=== PATIENT | female | born 1945 | race African-American/Black ===

== ENCOUNTER 2016-06-19 05:36 | Day surgery (SDC) | payer MEDICARE, MEDICAID ==
[2016-06-19] VITALS (13 sets, daily range): BP systolic 143–173; BP diastolic 76–95
[~2016-06-19] VITALS: Ht 165.1 cm; Wt 81.6 kg
[~2016-06-19 05:36] MED LIST: BUPROPION XL300 M1 PO; CAPTOPRIL50 MG PO; CIPROFLOXA500 MG/5 M PO; INDOCIN25 MG ORAL; INDOCIN75 MG ORAL; INDOMETHACIN25 MG PO; NORCO 5-325 TA1 EAC1 ORAL; SEROQUEL XR150 MG ORAL; TOVIAZ4 MG PO; TRAMADOL HCL50 MG ORAL
[2016-06-19] MEDS ORDERED: ceFAZolin sod 1 GM in NS 55 ML IVPB ONE (07:00)
[2016-06-19] MEDS ORDERED: LR 1000ml 1,000 ML IV SCH (07:00)
[2016-06-19] MEDS ORDERED: Iothalamate Meglumine 60% 30ML INJ ONE (07:04)
[2016-06-19] MEDS ORDERED: Muri-Lube ONE (07:07)
[2016-06-19] MEDS ORDERED: Lidocaine 1% MPF 10mg/ml 5ml ONE (07:30)
[2016-06-19] MEDS ORDERED: LR 1000ml ONE (07:30)
[2016-06-19] MEDS ORDERED: Propofol 10mg/ml 20ml IV ONE (07:30)
[2016-06-19] MEDS ORDERED: fentaNYL 250mcg/5ml ONE (07:30)
--- NOTE | 2016-06-19 07:34 | Pre-Procedure Note/Attestation ---
Pre-Procedure Note/Attestation Complete Prior to Procedure Planned Procedure: right Procedure Narrative: Right renal extracorporeal shockwave lithotripsy Indications for Procedure Pre-Operative Diagnosis: Right kidney stone Attestation I attest that I discussed the nature of the procedure; its benefits; risks and complications; and alternatives (and the risks and benefits of such alternatives ), prior to the procedure, with the patient (or the patient's legal patient service representative). I attest that, if there was a reasonable possibility of needing a blood transfusion, the patient (or the patient's legal patient service representative) was given the [facility] standardized written summary, pursuant to the [place] Blood Safety Act ([place] Health and Safety Code # 1645, as amended). I attest that I re-evaluated the patient just prior to the surgery and that there has been no change in the patient's H&P, except as documented below: Adarsh Treviño M.D. June 19, 2016 07:34
[2016-06-19] MEDS ORDERED: LR 1000ml 1,000 ML IVLG SCH (07:37)
--- NOTE | 2016-06-19 07:37 | Anethesia Preoperative Eval ---
Anesthesia Pre-op PMH/ROS General Date of Evaluation: June 19, 2016 Anesthesiologist: Tripp ASA Score: ASA 3 Mallampati Score Class I : Soft palate, uvula, fauces, pillars visible Class II: Soft palate, uvula, fauces visible Class III: Soft palate, base of uvula visible Class IV: Only hard plate visible Mallampati Classification: Class II Surgeon: Hudson Diagnosis: Right ureteral stone Surgical Procedure: Right ESWL Anesthesia History: none Family History: no anesthesia problems Allergies: Coded Allergies: No Known Allergies (Unverified , 06/26/15) Medications: see eMAR Past Medical History Cardiovascular: Reports: HTN, Denies: CAD, VA, arrhythmia, other, valve dz Pulmonary: Denies: COPD, OSBALDO, asthma, other Gastrointestinal/Genitourinary: Reports: GERD, Denies: CRI, ESRD, other Neurologic/Psychiatric: Reports: depression/anxiety, Denies: CVA, TIA, dementia, other Endocrine: Denies: DM, hypothyroidism, other, steroids HEENT: Reports: cataract (L), cataract (R), Denies: [place] (L), [place] (R), glaucoma, other Hematology/Immune: Reports: other - Right breast Cancer, Denies: DVT, anemia, bleeding disorder Musculoskeletal/Integumentary: Reports: OA, other - LBP, Denies: DDD, DJD, RA, edema PSxH Narrative: lap appy, right partial mastectomy Anesthesia Pre-op Phys. Exam Physician Exam Last Vital Signs Date Time Temp Pulse Resp B/P Pulse Ox O2 Delivery O2 Flow Rate FiO2 06/19/16 06:11 98.6 88 18 143/82 99 Room Air Constitutional: NAD Cardiovascular: RRR Respiratory: CTA Airway Exam Mallampati Score: Class II MO: full ROM: full Teeth: intact Anesthesia Pre-op A/P Labs see chart Studies Pre-op Studies: EKG - sr Risk Assessment & Plan Assessment: ASA III Plan: GA Status Change Before Surgery: No Pre-Antibiotics Drug: Ancef 1g Given Within 1 Hr of Incision: Yes Time Given: 07:55 CHARLOTTE GARDNER M.D. June 19, 2016 07:37
[2016-06-19] MEDS ORDERED: DiphenhydrAMINE 50mg/ml Inj IVP PRN (07:45)
[2016-06-19] MEDS ORDERED: fentaNYL 100 mcg/2 mL IV PRN (07:45)
--- NOTE | 2016-06-19 08:51 | Operative Note - PDOC ---
Operative Note Operative Note Date of Operation/Procedure: June 19, 2016 Chief Complaint: Right kidney stone Pre-op Diagnosis: Right kidney stone Procedure: Right ESWL Post-op Diagnosis: Same Post-op Diagnosis: same as pre-op Surgeon: Hudson Anesthesiologist: Tripp Anesthesia: general Specimen: none Complications: none Condition: stable Estimated Blood Loss: none Drains: none Implant(s) used?: No Indications for Procedure Right kidney stone Description of Procedure Shockwave lithotripsy with very good/ excellent fragmentation and no complications Adarsh Treviño M.D. June 19, 2016 08:51
--- NOTE | 2016-06-19 09:01 | Immediate Post-Op Evaluation ---
Immediate Post-Op Evalulation Immediate Post-Op Evalulation Procedure: Right ESWL Date of Evaluation: June 19, 2016 Time of Evaluation: 09:03 IV Fluids: 700 Blood Products: 0 Estimated Blood Loss: 0 Urinary Output: 0 Blood Pressure Systolic: 165 Blood Pressure Diastolic: 94 Pulse Rate: 97 Respiratory Rate: 16 O2 Sat by Pulse Oximetry: 100 Temperature (Fahrenheit): 97.7 Pain Score (1-10): 0 Nausea: No Vomiting: No Complications 0 Patient Status: awake, reacts, patent, none Hydration Status: adequate Drug: Ancef 1g Given Within 1 Hr of Incision: Yes Time Given: 07:55 CHARLOTTE GARDNER M.D. June 19, 2016 09:01
[2016-06-19] MEDS ORDERED: Hydromorphone 0.5mg/0.5ml inj ONE (09:34)
[2016-06-19] MEDS: Hydromorphone 0.5mg/0.5ml inj IVP PRN ×2 (09:35→09:54)
--- NOTE | 2016-06-19 11:08 | 48 Hour Post Anesthesia Eval ---
Post Anesthesia Evaluation Procedure: Right ESWL Date of Evaluation: June 19, 2016 Time of Evaluation: 10:25 Blood Pressure Systolic: 161 0: 81 Pulse Rate: 66 Respiratory Rate: 17 Temperature (Fahrenheit): 97.4 O2 Sat by Pulse Oximetry: 100 Airway: patent Nausea: No Vomiting: No Pain Intensity: 1 Hydration Status: adequate Cardiopulmonary Status: at baseline Mental Status/LOC: patient returned to baseline Post-Anesthesia Complications: 0 Follow-up care needed: ready to discharge CHARLOTTE GARDNER M.D. June 19, 2016 11:08
--- NOTE | 2016-06-19 23:49 | Operative Note - Dictated ---
DATE OF OPERATION: 06/19/2016 PREOPERATIVE DIAGNOSIS: Right renal stones. POSTOPERATIVE DIAGNOSIS: Right renal stones. PROCEDURE PERFORMED: Right renal extracorporeal shockwave lithotripsy. SURGEON: Adarsh Treviño M.D. ANESTHESIA: General/LMA. ATTENDING SURGEON: Dr. Almaguer. ESTIMATED BLOOD LOSS: None. IV FLUIDS: IV crystalloid only. DRAINS, TUBES, AND CATHETERS: None. SPECIMENS: None. COMPLICATIONS: None. OPERATIVE INDICATION: The patient is a 70-year-old female with a history of right kidney stones. After evaluation and consultation with me, she elected to undergo the procedure described above. Once medical and cardiac clearance was obtained, she was scheduled for this procedure at [facility] on 06/19/2016. OPERATIVE NOTE IN DETAIL: The patient was brought to the operative room and placed on the table in supine position. General anesthesia was then induced. Once the patient had her LMA placed, she was repositioned on the table so as to center the ESWL machine over her right kidney stones. The stones were easily visible on fluoroscopy. There was one stone in the upper pole of the kidney and a cluster of stones in the right lower pole. We began in the lower pole and proceeded to deliver 2000 shocks to the lower pole of stones at a rate of 60 shocks per minute. Fragmentation was very good to excellent. After 2000 shocks, the machine was centered over the upper pole stone and another 500 shocks were delivered there again with very good excellent fragmentation. The patient tolerated the procedure with only an occasional premature ventricular contraction and no other issues or complications. At the conclusion of the procedure, she was awakened and extubated and transferred to recovery room in stable condition. I was present for the entire duration of this case. All needle, sponge, and instrument counts were reported correct. Adarsh Treviño M.D. DR: KENJI JOB#: [id number] CC:
== END 2016-06-19 12:50 | disposition home or self-care (01) ==
LOC: SUR 05:36
DX: N20.0 Calculus of kidney (principal); N39.46 Mixed incontinence; R35.1 Nocturia; I10 Essential (primary) hypertension; K21.9 Gastro-esophageal reflux disease without esophagitis; M15.9 Polyosteoarthritis, unspecified; M54.9 Dorsalgia, unspecified; D25.9 Leiomyoma of uterus, unspecified; F32.9 Major depressive disorder, single episode, unspecified; F41.9 Anxiety disorder, unspecified; Z85.3 Personal history of malignant neoplasm of breast; Z90.49 Acquired absence of other specified parts of digestive tract; Z98.51 Tubal ligation status
CPT/HCPCS: 50590; J0690; J1170; J2405; J2704; J3010; J7120; 94003; 94150

== ENCOUNTER 2020-02-17 18:21 | Inpatient (IN) | payer MEDICARE, MEDICAID ==
[~2020-02-17] VITALS: Ht 165.1 cm; Wt 78.0 kg
--- NOTE | 2020-02-17 18:50 | NUR ---
ED Nurse Note: Pt came in to ED via wheelchair accompanied by daughter d/t dizziness and weakness for a couple of days and felt like she lost her balance today and fall, (+) head hit. Pt is AOx4, as of now, calm and cooperative to care, breathing even and unlabored, placed on bed and gown; hooked to cardiac cath lab technologist. safety measures in placed, will continue to monitor.
[2020-02-17 18:52] VITALS: BP 166/73
--- NOTE | 2020-02-17 19:04 | NUR ---
ED Nurse Note: blood collected, sent to lab
--- NOTE | 2020-02-17 19:11 | NUR ---
ED Nurse Note: Hand off given to PETTY Bahena.
[2020-02-17 19:13] LABS: BASOPHILS % (AUTO) 2.2 % (0.0-2.0); EOSINOPHILS % (AUTO) 0.7 % (0.0-3.0); HEMATOCRIT 37.3 % (37.0-47.0); HEMOGLOBIN 11.8 G/DL (12.0-16.0); LYMPHOCYTES % (AUTO) 31.2 % (20.0-45.0); MEAN CORPUSCULAR VOLUME 105 FL (80-99); MONOCYTES % (AUTO) 6.3 % (1.0-10.0); NEUTROPHILS % (AUTO) 59.7 % (45.0-75.0); PLATELET COUNT 303 K/UL (150-450); RED BLOOD COUNT 3.56 M/UL (4.20-5.40); RED CELL DISTRIBUTION WIDTH 13.6 % (11.6-14.8); WHITE BLOOD COUNT 5.9 K/UL (4.8-10.8)
--- NOTE | 2020-02-17 19:20 | NUR ---
ED Nurse Note: Recieved report from am nurse to resume care, pt in bed resting quietly on phone conversing with family, pt is awake, alert and oriented x 4, noted with hematoma to left forehead, denies pain, no cp, no sob or labored breathing, pt denies dizziness at rest, has patent saline lock, started on ordered fluids, pt also placed on cardiac monitoring, will resume care as ordered and closely monitor.
--- NOTE | 2020-02-17 19:38 | Diagnostic Imaging Report ---
EXAM: CT Head Without Intravenous Contrast CLINICAL HISTORY: DIZZY TECHNIQUE: Axial computed tomography images of the head/brain without intravenous contrast. CTDI is 53.4 mGy and DLP is 1018.8 mGy-cm. One or more of the following dose reduction techniques were used: automated exposure control, adjustment of the mA and/or kV according to patient size, use of iterative reconstruction technique. COMPARISON: None. FINDINGS: Brain: Mild generalized brain atrophy. Decreased attenuation within the deep white matter compatible with microangiopathic white matter disease. No hemorrhage. Ventricles: Unremarkable. No ventriculomegaly. Bones/joints: Unremarkable. No acute fracture. Soft tissues: Fatty lesion involving the scalp at the level of the left frontal bone suggestive of a small lipoma. This measures 2.6 x 0.3 cm. Sinuses: Unremarkable as visualized. No acute sinusitis. Mastoid air cells: Unremarkable as visualized. No mastoid effusion. IMPRESSION: Chronic changes as described. No acute intracranial hemorrhage or space-occupying lesion.
--- NOTE | 2020-02-17 19:52 | Emergency Room Report ---
History of Present Illness General Chief Complaint: Dizziness Source: Patient (Evelyn Mejía) Present Illness HPI 74-year-old female with history of hypertension taking medication and loss of balance for many years here complaining of syncope. Patient does not recall how many years she has been off balance however reports that she often uses a cane to ambulate and does not recall what the latest MRI which was done 4 years ago of her head indicated in regards to her off-balance symptom patient has not yet follow-up with primary doctor in that regard. Patient reports that she was sitting at a curb earlier today and got up too abruptly she was sitting in the heat and felt dizzy. Patient then landed on the floor however reports that she is in "sure that did not hit my head." Has a mass in forehead which reports that has been there for many years. Denies any slurred speech and is neurova scularly intact. No unilateral generalized weakness noted. Reports the left arm has been feeling more weak since she felt dizzy earlier today. Patient reports that she had no seizure activity or dizziness prior to her syncopal episode. Reports that the paramedics came to the scene and assessed her and everything was within normal limits however patient went home and few hours l ater decided to come to the ED as her loss of balance was getting worse. Denies any nausea vomiting at this time. Denies all other injuries. Denies tobacco smoke and drug use. Denies any chest pain palpitation. 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 (Evelyn Mejía) Patient History Past Medical History: see triage record Past Surgical History: none Pertinent Family History: none Immunizations: UTD Reviewed Nursing Documentation: PMH: Agreed; PSxH: Agreed (Evelyn Mejía) Nursing Documentation-PMH Past Medical History: No History, Except For Hx Cardiac Problems: Yes Hx Hypertension: Yes Hx Cancer: Yes Hx Gastrointestinal Problems: Yes Hx Neurological Problems: No (Evelyn Mejía) Review of Systems All Other Systems: negative except mentioned in HPI (Evelyn Mejía) Physical Exam Vital Signs Date Time Temp Pulse Resp B/P (MAP) Pulse Ox O2 Delivery O2 Flow Rate FiO2 02/17/20 18:45 98.4 87 19 166/73 (104) 100 Room Air Sp02 EP Interpretation: reviewed, normal General Appearance: no apparent distress, alert, GCS 15, non-toxic Head: normocephalic, atraumatic Eyes: bilateral eye normal inspection, bilateral eye PERRL ENT: hearing grossly normal, normal pharynx, no angioedema, normal voice Neck: full range of motion, supple, thyroid normal, no meningismus, no bony tend, supple/symm/no masses, other - Nexus criteria is negative Respiratory: chest non-tender, lungs clear, normal breath sounds, no rhonchi, no respiratory distress, no retraction, no accessory muscle use, no wheezing, speaking full sentences Cardiovascular #1: normal peripheral pulses, regular rate, rhythm Gastrointestinal: non tender, soft, no organomegaly, no peritonitis Rectal: deferred Genitourinary: no CVA tenderness Musculoskeletal: back normal, digits/nails normal, pelvis stable, non-tender 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, motor strength/tone normal, oriented, distal neuro normal, oriented x3, sensory intact, responsive, speech normal Psychiatric: judgement/insight normal, memory normal, mood/affect normal, no suicidal/homicidal ideation Skin: no rash Lymphatic: no adenopathy (Evelyn Mejía) 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, yacht rigger III-XII nml as tested, oriented x3, motor weakness - Mild left hand weakness 4+ out of 5 compared to the right mild left lower extremity weakness approximately 4+ out of 5 compared to the right, other - Speech normal (Dominick Bush M.D.) Medical Decision Making PA Attestation All diagnoses and treatment plans were reviewed and discussed with my supervising physician Dr. Bush (Evelyn Mejía) Diagnostic Impression: Primary Impression: Syncope Additional Impression: Weakness ER Course 74-year-old female with history of hypertension taking medication and loss of balance for many years here complaining of syncope. Patient does not recall how many years she has been off balance however reports that she often uses a cane to ambulate and does not recall what the latest MRI which was done 4 years ago of her head indicated in regards to her off-balance symptom patient has not yet follow-up with primary doctor in that regard. Patient reports that she was sit ting at a curb earlier today and got up too abruptly she was sitting in the heat and felt dizzy. Patient then landed on the floor however reports that she is in "sure that did not hit my head." Has a mass in forehead which reports that has been there for many years. Denies any slurred speech and is neurovascularly intact. No unilateral generalized weakness noted. Reports the left arm has been feeling more weak since she felt dizzy earlier today. Patient reports that she had no seizure activity or dizziness prior to her syncopal episode. Reports that the paramedics came to the scene and assessed her and everything was within normal limits however patient went home and few hours later decided to come to the ED as her loss of balance was getting worse. Denies any nausea vomiting at this time. Denies all other injuries. Denies tobacco smoke and drug use. Denies any chest pain palpitation. Ddx considered but are not limited to: Dizziness due to alcohol intoxication, dizziness unspecified, dizziness due to head trauma, dizziness secondary to cardiac reasons Vital signs: are WNL, pt. is afebrile H&PE are most consistent with: syncope ORDERS: Head CT no contrast, troponin, EKG, chest x-ray, CBC, CMP, UA, U tox ER intervention: NS bolus DISCHARGE: At this time pt. is stable for d/c to home. Will provide printed patient care instructions, and any necessary prescriptions. Care plan and follow up instructions have been discussed with the patient prior to discharge. Take medication as directed, follow-up with your primary care provider, if worsening symptoms return to emergency room (Evelyn Mejía) ER Course Patient seen and evaluated by me. Differential diagnosis included but not limited to arrhythmia, stroke, neuropathy, orthostasis to name a few Patient apparently had a syncopal event earlier in the day. She states that she has had generalized weakness since and feels as though she is unable to walk as she feels unsteady. She has a history of dizziness and vertigo. On my exam she did have mild left-sided weakness compared to the right. However she presented the ER approximately 7 hours after onset of symptoms. The scan of the brain did not show any acute pathology and I did order a CT angiogram of the head and neck for further evaluation. Patient was given aspirin in the ER. Will be admitted to the telemetry floor for further work-up. Patient will be admitted to Dr. Claudio (Dominick Bush M.D.) EKG Diagnostic Results Rate: normal Rhythm: NSR ST Segments: no acute changes Other Impression No acute ST changes ASA given to the pt in ED: No (Evelyn Mejía) Chest X-Ray Diagnostic Results Chest X-Ray Diagnostic Results : Chest X-Ray Ordered: Yes # of Views/Limited/Complete: 1 View Indication: Other EP Interpretation: Yes PA Xray: Interpretation reviewed, by supervising MD, and agrees with findings. Interpretation: no consolidation, no effusion, no pneumothorax Impression: No acute disease Electronically Signed by: Evelyn Blevins PA-C) CT/MRI/US Diagnostic Results CT/MRI/US Diagnostic Results : Imaging Test Ordered: Head CT no contrast Impression FINDINGS: Brain: Mild generalized brain atrophy. Decreased attenuation within the deep white matter compatible with microangiopathic white matter disease. No hemorrhage. Ventricles: Unremarkable. No ventriculomegaly. Bones/joints: Unremarkable. No acute fracture. Soft tissues: Fatty lesion involving the scalp at the level of the left frontal bone suggestive of a small lipoma. This measures 2.6 x 0.3 cm. Sinuses: Unremarkable as visualized. No acute sinusitis. Mastoid air cells: Unremarkable as visualized. No mastoid effusion. IMPRESSION: Chronic changes as described. No acute intracranial hemorrhage or space- occupying lesion. (Evelyn Mejía) Last Vital Signs Date Time Temp Pulse Resp B/P (MAP) Pulse Ox O2 Delivery O2 Flow Rate FiO2 02/17/20 18:52 98.4 19 166/73 100 Room Air 02/17/20 18:52 87 (Evelyn Mejía) Disposition: HOME, SELF-CARE Condition: Stable Scripts Meclizine Hcl* (MECLIZINE*) 25 Mg Tablet 25 MG ORAL THREE TIMES A DAY, #15 TAB Prov: Evelyn Mejía 02/17/20 Referrals: NON PHYSICIAN (PCP) Patient Instructions: Dizziness, Syncope Additional Instructions: Take medication as directed, follow primary care provider, if worsening symptoms return to the emergency room Evelyn Mejía Feb 17, 2020 19:52 Dominick Bush M.D. Feb 17, 2020 22:31
[2020-02-17 19:58] LABS: ANION GAP 6 mmol/L (5-15); BLOOD UREA NITROGEN 21 mg/dL (7-18); CALCIUM 9.4 MG/DL (8.5-10.1); CARBON DIOXIDE 26 MMOL/L (21-32); CHLORIDE 106 MMOL/L (98-107); CREATININE 1.2 MG/DL (0.55-1.30); POTASSIUM 4.4 MMOL/L (3.5-5.1); SODIUM 138 MMOL/L (136-145)
[2020-02-17 20:00] VITALS: BP 159/94
[2020-02-17 20:17] LABS: ALANINE AMINOTRANSFERASE 33 U/L (12-78); ALBUMIN 3.6 G/DL (3.4-5.0); ALBUMIN/GLOBULIN RATIO 0.9 (1.0-2.7); ALKALINE PHOSPHATASE 170 U/L (46-116); ASPARTATE AMINO TRANSFERASE 30 U/L (15-37); BILIRUBIN,TOTAL 0.3 MG/DL (0.2-1.0); CREATINE KINASE 456 U/L (26-308)
[2020-02-17] MEDS ORDERED: MECLIZINE HCL25 MG ORAL (20:35)
[2020-02-17] MEDS ORDERED: HYDROcodone/Acetamin 5/325 tab ORAL ONE (20:45)
--- NOTE | 2020-02-17 21:00 | NUR ---
ED Nurse Note: Pt resting in bed, now complaining that she has severe back paina t 9/10 from gallstones, stating has had for a few months but surgery cancelled due to covid and rescheduled for 3 weeks from now, pt also c/o not being able to walk with severe weakness to left side so she does not want to go home, reported info to NICK RUIZ discharged pt, pt now staying and will have ct-scan and be prepared for admisison.
[2020-02-17 21:17] LABS: APPEARANCE,URINE SLIGHTLY CLOUDY; BILIRUBIN, URINE NEGATIVE (NEGATIVE); COLOR,URINE PALE YELLOW; GLUCOSE, URINE (UA) 2+ (NEGATIVE); KETONES,URINE 1+ (NEGATIVE); LEUKOCYTE ESTERASE ,URINE 2+ (NEGATIVE); NITRITE,URINE NEGATIVE (NEGATIVE); PH,URINE 6 (4.5-8.0); PROTEIN,URINE NEGATIVE (NEGATIVE); UROBILINOGEN,URINE NORMAL MG/DL (0.0-1.0)
[2020-02-17] MEDS ORDERED: Omnipaque 350 100ml vial INJ PRN ×2 (21:45)
[2020-02-17 22:15] VITALS: BP 154/79
--- NOTE | 2020-02-17 23:00 | NUR ---
ED Nurse Note: Pt resting quietly, meds given for pain effective, v/s stable, no sob or labored breathing, pt assisted with bedpan use and diaper change, IV site patent, denies chest pain or sob, nad noted, will continue to closely monitor while waiting for bed for admission.
--- NOTE | 2020-02-17 23:07 | Diagnostic Imaging Report ---
EXAM: CT Angiography Neck With Intravenous Contrast CLINICAL HISTORY: DIZZY TECHNIQUE: Axial computed tomographic angiography images of the neck with intravenous contrast. CTDI is 160.6 mGy and DLP is 2464.3 mGy-cm. One or more of the following dose reduction techniques were used: automated exposure control, adjustment of the mA and/or kV according to patient size, use of iterative reconstruction technique. MIP reconstructed images were created and reviewed. COMPARISON: None. FINDINGS: VASCULATURE: Right common carotid artery: Unremarkable. No significant stenosis. No dissection or occlusion. Right internal carotid artery: Unremarkable. Extracranial segment is patent with no significant stenosis. No dissection or occlusion. Right external carotid artery: Unremarkable. No occlusion. Right vertebral artery: Dominant right-sided vertebral artery otherwise unremarkable vertebral arteries. No significant stenosis. No dissection or occlusion. Left common carotid artery: Unremarkable. No significant stenosis. No dissection or occlusion. Left internal carotid artery: Mild calcified plaque at the level of the left bulb. No stenosis. No dissection or occlusion. Left external carotid artery: Unremarkable. No occlusion. Left vertebral artery: Unremarkable. No significant stenosis. No dissection or occlusion. Other vasculature: There is bovine origin of the great vessels. Mild calcified plaque along the aortic arch. NECK: Bones/joints: No acute fracture. No dislocation. Soft tissues: Unremarkable as visualized. No mass. CAROTID STENOSIS REFERENCE USING NASCET CRITERIA: % ICA stenosis = (1 - narrowest ICA diameter/diameter of distal cervical ICA) x 100. Mild - <50% stenosis. Moderate - 50-69% stenosis. Severe - 70-94% stenosis. Near occlusion - 95-99% stenosis. Occluded - 100% stenosis. IMPRESSION: Mild atherosclerotic disease as described with no evidence of stenosis or occlusion or dissection.
--- NOTE | 2020-02-17 23:18 | Diagnostic Imaging Report ---
EXAM: CT Angiography Head With Intravenous Contrast CLINICAL HISTORY: DIZZY TECHNIQUE: Axial computed tomographic angiography images of the head with intravenous contrast. CTDI is 160.6 mGy and DLP is 2464.3 mGy-cm. One or more of the following dose reduction techniques were used: automated exposure control, adjustment of the mA and/or kV according to patient size, use of iterative reconstruction technique. MIP reconstructed images were created and reviewed. COMPARISON: None. FINDINGS: Right internal carotid artery: No acute findings. Intracranial segment is patent with no significant stenosis. No aneurysm. Right anterior cerebral artery: Unremarkable. No occlusion or significant stenosis. No aneurysm. Right middle cerebral artery: Unremarkable. No occlusion or significant stenosis. No aneurysm. Right posterior cerebral artery: Unremarkable. No occlusion or significant stenosis. No aneurysm. Right vertebral artery: Unremarkable as visualized. Left internal carotid artery: No acute findings. Intracranial segment is patent with no significant stenosis. No aneurysm. Left anterior cerebral artery: Unremarkable. No occlusion or significant stenosis. No aneurysm. Left middle cerebral artery: Unremarkable. No occlusion or significant stenosis. No aneurysm. Left posterior cerebral artery: Unremarkable. No occlusion or significant stenosis. No aneurysm. Left vertebral artery: Unremarkable as visualized. Basilar artery: Unremarkable. No occlusion or significant stenosis. No aneurysm. IMPRESSION: Normal CT angiogram of the brain for age. No stenosis, occlusion or aneurysm involving the [place] of [place].
--- NOTE | 2020-02-18 00:15 | NUR ---
ED Nurse Note: Pt has room for admission, report called to floor nurse HerminiaRN, pt belongings list completed, IV site patent, no distress noted, pt being taken to floor unit via gurney with ACLS protocols with ER-Tech and RN.
--- NOTE | 2020-02-18 00:20 | NUR ---
NURSE NOTES: Received report from PETTY Bahena from ED. Admitted pt to telemetry room 204-1. Pt arrived on unit via gurney, assisted pt to bed. Pt alert, oriented x4, able to make needs known. No resp distress noted. Placed pt on cloth seconds sorter pt running NSR. Right AC 22g IV in place & patent saline locked. Oriented pt to room & unit. Belonging list check and body check done. No c/o pain or discomfort at this time. Assisted pt bed side commode. Bed in low position & locked. Side rails up x2. call light with in reach. Bed alarm on. Explained to pt use call light before getting an out of bed. Received admission orderers from Dr. Claudio will noted & carry out.
--- NOTE | 2020-02-18 01:00 | NUR ---
NURSE NOTES: Notified Dr. Claudio that Captopril & Toviaz is not in the pharmacy's formulary. no new orders at this time.
[2020-02-18] MEDS ORDERED: HYDROcodone/Acetamin 5/325 tab ORAL SCH ×2 (01:45→02:00)
[2020-02-18] MEDS ORDERED: Indomethacin 25mg cap NG PRN (01:45)
[2020-02-18 02:13] LABS: BASOPHILS % (AUTO) 1.1 % (0.0-2.0); EOSINOPHILS % (AUTO) 1.4 % (0.0-3.0); HEMATOCRIT 34.5 % (37.0-47.0); HEMOGLOBIN 11.2 G/DL (12.0-16.0); MEAN CORPUSCULAR VOLUME 102 FL (80-99); MONOCYTES % (AUTO) 8.2 % (1.0-10.0); NEUTROPHILS % (AUTO) 46.3 % (45.0-75.0); PLATELET COUNT 262 K/UL (150-450); RED BLOOD COUNT 3.39 M/UL (4.20-5.40); RED CELL DISTRIBUTION WIDTH 13.8 % (11.6-14.8); WHITE BLOOD COUNT 5.4 K/UL (4.8-10.8)
[2020-02-18 02:28] LABS: CALCIUM 9.1 MG/DL (8.5-10.1); CREATININE 1.1 MG/DL (0.55-1.30); PHOSPHORUS 2.6 MG/DL (2.5-4.9); POTASSIUM 3.8 MMOL/L (3.5-5.1)
[2020-02-18] MEDS: HYDROcodone/Acetamin 5/325 tab ORAL PRN ×3 (02:33→23:54)
[2020-02-18 04:00] VITALS: BP 154/80
--- NOTE | 2020-02-18 06:45 | NUR ---
NURSE NOTES: Notified DR. Claudio regarding increasing weakness in pts left arm. Pt alert, oriented x4, able to make needs known . No facial dropping or slurred speech noted. Pt unable to hold left arm up. No c/o pain at this time. Dr Claudio new orders given will note & carry out.
--- NOTE | 2020-02-18 07:42 | NUR ---
NURSE HAND-OFF REPORT: Important Events on Shift:[admited for syncope & weakness. @ 0645 pt complained of left side weakness Dr. Claudio made aware] Patient Status: [stable] Diet: [Cardiac] Pending Orders: [] Pending Results/Labs:[] Pending MD notification:[] Latest Vital Signs: Temperature 98.2 , Pulse 78 , B/P 154 /80 , Respiratory Rate 20 , O2 SAT 97 , Room Air, O2 Flow Rate . Vital Sign Comment: [] EKG Rhythm: Sinus Rhythm Rhythm change?: N MD Notified?: - MD Response: Latest [place] Fall Score: 50 Fall Risk: High Risk Safety Measures: Call light Within Reach, Bed Alarm Zone 2, Side Rails Side Rails x2, Bed position Low and Locked. Fall Precautions: Report given to [PETTY Solo].
--- NOTE | 2020-02-18 07:58 | NUR ---
CASE MANAGEMENT:REVIEW 74 YR OLD FEMALE FROM HOME TO ER CC: DIZZINESS AND LOSING HER BALANCE. COLLAPSED ON SIDEWALK TODAY SI: SYNCOPE. WEAKNESS 98.4 87 19 166/73 100% ON RA BUN+21 GLUCOSE+129 TCK+456 IS: 1L NS BOLUS X1 NORCO PO X1 CHEST XRAY CT HEAD : TO TELEMETRY DCP: FROM HOME PLAN: CAROTID DUPLEX MRI BRAIN 2DECHO NEURO CHECKS
[2020-02-18 08:00] VITALS: BP 158/89
--- NOTE | 2020-02-18 08:51 | History & Physical ---
History of Present Illness General Reason for Hospitalization: Dizziness Present Illness HPI 74-year-old female with history of hypertension taking medication and loss of balance for many years here complaining of syncope. Patient does not recall how many years she has been off balance however reports that she often uses a cane to ambulate and does not recall what the latest MRI which was done 4 years ago of her head indicated in regards to her off-balance symptom patient has not yet follow-up with primary doctor in that regard. Patient reports that she was sitting at a curb earlier today and got up too abruptly she was sitting in the heat and felt dizzy. Patient then landed on the floor however reports that she is in "sure that did not hit my head." Has a mass in forehead which reports that has been there for many years. Denies any slurred speech and is neurovascularly intact. No unilateral generalized weakness noted. Reports the left arm has been feeling more weak since she felt dizzy earlier today. Patient reports that she had no seizure activity or dizziness prior to her syncopal episode. Reports that the paramedics came to the scene and assessed her and everything was within normal limits however patient went home and few hours later decided to come to the ED as her loss of balance was getting worse. Denies any nausea vomiting at this time. Denies all other injuries. Denies tobacco smoke and drug use. Denies any chest pain palpitation. Allergies: Coded Allergies: No Known Allergies (Unverified , 06/26/15) COVID-19 Screening Contact w/high risk pt: No Experienced COVID-19 symptoms?: No Medication History Scheduled Bupropion HCl (Bupropion Xl), 300 MG PO DAILY, (Reported) Captopril (Captopril), 50 MG PO DAILY, (Reported) Ciprofloxacin (Ciprofloxacin), 500 MG PO BID, (Reported) Fesoterodine Fumarate (Toviaz), 4 MG PO BEDTIME, (Reported) Hydrocodone Bit/Acetaminophen 5-325* ([place] 5-325 Tablet*), 1 TAB ORAL PRN, (Reported) Indomethacin (Indomethacin), 25 MG PO NEEDED, (Reported) Meclizine Hcl* (Meclizine*), 25 MG ORAL THREE TIMES A DAY Quetiapine Fumarate (Seroquel Xr), 150 MG ORAL BEDTIME, (Reported) Scheduled PRN Tramadol Hcl* (Ultram*), 50 MG ORAL Q6H PRN for For Pain Patient History Healthcare decision maker Resuscitation status Advanced Directive on File Review of Systems Review of Symptoms General ROS: no weight loss or fever Psychological ROS: no depression or mood changes, no memory loss Ophthalmic ROS: no visual changes or eye irritation ENT ROS: no nasal congestion, hearing loss, dizziness Allergy and Immunology ROS: no allergic symptoms or urticaria Hematological and Lymphatic ROS: no swollen glands, unusual bleeding or bruising Endocrine ROS: no polyuria, polydipsia, weight changes, temperature intolerance Respiratory ROS: no cough, shortness of breath, or wheezing Cardiovascular ROS: no chest pain or dyspnea on exertion Gastrointestinal ROS: denies abdominal pain, bright red blood in stool. Musculoskeletal ROS: no myalgias or arthralgias Neurological ROS: Left sided weakness, dizziness Dermatological ROS: no new or changing skin lesions, rashes or pruritis Physical Exam Physical Exam General appearance: alert, cooperative, no distress, appears stated age Head: Normocephalic, without obvious abnormality, atraumatic Eyes: conjunctivae/corneas clear. PERRL, EOM's intact. Fundi benign Throat: Lips, mucosa, and tongue normal. Teeth and gums normal Neck: supple, symmetrical, trachea midline, no adenopathy, thyroid: not enlarged, symmetric, no tenderness/mass/nodules, no carotid bruit and no JVD Lungs: clear to auscultation bilaterally Heart: regular rate and rhythm, S1, S2 normal, no murmur, click, rub or gallop Abdomen: soft, non-tender. Bowel sounds normal. No masses, no organomegaly Extremities: extremities normal, atraumatic, no cyanosis or edema Pulses: 2+ and symmetric Skin: Skin color, texture, turgor normal. No rashes or lesions Neurologic: Left sided weakness Last 24 Hour Vital Signs Date Time Temp Pulse Resp B/P (MAP) Pulse Ox O2 Delivery O2 Flow Rate FiO2 02/18/20 04:00 98.2 78 20 154/80 (104) 97 02/18/20 04:00 82 02/18/20 01:54 Room Air 02/18/20 00:20 79 02/17/20 22:15 98.4 68 17 154/79 100 Room Air 02/17/20 21:17 98.4 02/17/20 20:00 98.4 76 19 159/94 100 Room Air 02/17/20 18:52 98.4 19 166/73 100 Room Air 02/17/20 18:52 87 19 Room Air 02/17/20 18:45 98.4 87 19 166/73 (104) 100 Room Air Laboratory Tests Test 02/17/20 19:05 02/17/20 20:00 02/18/20 01:42 02/18/20 08:15 White Blood Count 5.9 K/UL (4.8-10.8) 5.4 K/UL (4.8-10.8) Red Blood Count 3.56 M/UL (4.20-5.40) L 3.39 M/UL (4.20-5.40) L Hemoglobin 11.8 G/DL (12.0-16.0) L 11.2 G/DL (12.0-16.0) L Hematocrit 37.3 % (37.0-47.0) 34.5 % (37.0-47.0) L Mean Corpuscular Volume 105 FL (80-99) H 102 FL (80-99) H Mean Corpuscular Hemoglobin 33.0 PG (27.0-31.0) H 33.0 PG (27.0-31.0) H Mean Corpuscular Hemoglobin Concent 31.5 G/DL (32.0-36.0) L 32.5 G/DL (32.0-36.0) Red Cell Distribution Width 13.6 % (11.6-14.8) 13.8 % (11.6-14.8) Platelet Count 303 K/UL (150-450) 262 K/UL (150-450) Mean Platelet Volume 5.9 FL (6.5-10.1) L 6.7 FL (6.5-10.1) Neutrophils (%) (Auto) 59.7 % (45.0-75.0) 46.3 % (45.0-75.0) Lymphocytes (%) (Auto) 31.2 % (20.0-45.0) 43.0 % (20.0-45.0) Monocytes (%) (Auto) 6.3 % (1.0-10.0) 8.2 % (1.0-10.0) Eosinophils (%) (Auto) 0.7 % (0.0-3.0) 1.4 % (0.0-3.0) Basophils (%) (Auto) 2.2 % (0.0-2.0) H 1.1 % (0.0-2.0) Sodium Level 138 MMOL/L (136-145) 139 MMOL/L (136-145) Potassium Level 4.4 MMOL/L (3.5-5.1) 3.8 MMOL/L (3.5-5.1) Chloride Level 106 MMOL/L (98-107) 108 MMOL/L (98-107) H Carbon Dioxide Level 26 MMOL/L (21-32) 26 MMOL/L (21-32) Anion Gap 6 mmol/L (5-15) 5 mmol/L (5-15) Blood Urea Nitrogen 21 mg/dL (7-18) H 16 mg/dL (7-18) Creatinine 1.2 MG/DL (0.55-1.30) 1.1 MG/DL (0.55-1.30) Estimat Glomerular Filtration Rate 53.2 mL/min (>60) 58.8 mL/min (>60) Glucose Level 129 MG/DL (74-106) H 131 MG/DL (74-106) H Calcium Level 9.4 MG/DL (8.5-10.1) 9.1 MG/DL (8.5-10.1) Total Bilirubin 0.3 MG/DL (0.2-1.0) Aspartate Amino Transf (AST/SGOT) 30 U/L (15-37) Alanine Aminotransferase (ALT/SGPT) 33 U/L (12-78) Alkaline Phosphatase 170 U/L (46-116) H Total Creatine Kinase 456 U/L (26-308) H Troponin I 0.011 ng/mL (0.000-0.056) 0.015 ng/mL (0.000-0.056) Pending Pro-B-Type Natriuretic Peptide 191 pg/mL (0-125) H Total Protein 7.4 G/DL (6.4-8.2) Albumin 3.6 G/DL (3.4-5.0) Globulin 3.8 g/dL Albumin/Globulin Ratio 0.9 (1.0-2.7) L Serum Alcohol < 3 mg/dL Urine Color Pale yellow Urine Appearance Slightly cloudy Urine pH 6 (4.5-8.0) Urine Specific [employer] 1.015 (1.005-1.035) Urine Protein Negative (NEGATIVE) Urine Glucose (UA) 2+ (NEGATIVE) H Urine Ketones 1+ (NEGATIVE) H Urine Blood Negative (NEGATIVE) Urine Nitrite Negative (NEGATIVE) Urine Bilirubin Negative (NEGATIVE) Urine Urobilinogen Normal MG/DL (0.0-1.0) Urine Leukocyte Esterase 2+ (NEGATIVE) H Urine RBC 0-2 /HPF (0 - 2) Urine WBC 5-10 /HPF (0 - 2) H Urine Squamous Epithelial Cells Moderate /LPF (NONE/OCC) H Urine Amorphous Sediment Few /LPF (NONE) H Urine Bacteria Few /HPF (NONE) Urine Opiates Screen Negative (NEGATIVE) Urine Barbiturates Screen Negative (NEGATIVE) Phencyclidine (PCP) Screen Negative (NEGATIVE) Urine Amphetamines Screen Negative (NEGATIVE) Urine Benzodiazepines Screen Negative (NEGATIVE) Urine Cocaine Screen Negative (NEGATIVE) Urine Marijuana (THC) Screen Negative (NEGATIVE) Phosphorus Level 2.6 MG/DL (2.5-4.9) Magnesium Level 1.9 MG/DL (1.8-2.4) Height (Feet): 5 Height (Inches): 5.00 Weight (Pounds): 172 Medications Current Medications Medications (Trade) Dose Ordered Sig/Yenny Route PRN Reason Start Time Stop Time Status Last Admin Dose Admin Acetaminophen (Tylenol) 650 mg Q6H PRN ORAL pain 1-3 02/18/20 01:15 03/19/20 01:14 Acetaminophen (Tylenol) 650 mg Q6H PRN ORAL temp of 100.5 or greater 02/18/20 01:15 03/19/20 01:14 Acetaminophen/ Hydrocodone Bitart ([place] 5/325) 1 tab Q6H PRN ORAL pain 7-10 02/18/20 02:00 02/25/20 01:59 02/18/20 02:33 Aspirin (ASA) 81 mg DAILY ORAL 02/18/20 09:00 04/03/20 08:59 Atorvastatin Calcium (Lipitor) 80 mg BEDTIME ORAL 02/18/20 21:00 05/18/20 20:59 Bupropion HCl (Wellbutrin) 300 mg DAILY ORAL 02/18/20 09:00 03/19/20 08:59 Hydralazine HCl (Apresoline) 10 mg Q4H PRN IV SBP > 160 02/18/20 01:15 05/18/20 01:14 Indomethacin (Indocin) 25 mg NEEDED NG 02/18/20 01:45 03/19/20 01:44 UNV Iohexol (Omnipaque 350 100ml) 100 ml NOW PRN INJ Radiology Procedure 02/17/20 21:45 02/19/20 21:44 Iohexol (Omnipaque 350 100ml) 100 ml NOW PRN INJ Radiology Procedure 02/17/20 21:45 02/19/20 21:44 Meclizine HCl (Antivert) 25 mg THREE TIMES A DAY ORAL 02/18/20 09:00 03/19/20 08:59 Quetiapine Fumarate (SEROqueL) 150 mg BEDTIME ORAL 02/18/20 21:00 04/03/20 20:59 Tramadol HCl (Ultram) 50 mg Q6H PRN ORAL Moderate Pain (Pain Scale 4-6) 02/18/20 01:45 02/25/20 01:44 Assessment/Plan Diagnosis [place]: #CVA #Left sided weakness #HTN #lightheadedness #elevated - tele - neuro eval - brain MRI - 2d echo - carotid US - cardiology eval - asa 91 - lipitror 80 - monitor BP - monitor [facility] Hospital declaration Estimated discharge date: 02/20 I spent 70 minutes on this patient's case, and 35 minutes was dedicated to counseling and/or care coordination. MIPS (Merit-based Incentive Payment System) Applicable CPT: 83712, 46916 CHECK ALL THAT ARE MET: Measure #5 (CHF): All ages. Prescribe KAVITHA/ARB upon discharge for patients with left ventricular systolic dysfunction. If not, the reason is clearly documented in the medical chart. Measure #8 (CHF): All ages. Prescribe a beta maryana upon discharge for patients with left ventricular systolic dysfunction. If not, the reason is clearly documented in the medical chart. Measure #47 Advance care plan or surrogate decision maker documented in the medical record. Measure #130 The provider has documented, updated, or reviewed the patients current medication list and has documented it in the patients note. Measure #374 (All): Send report to referring provider. Measure #407(Sepsis due to MSSA bacteremia): Age 18+ Patient treated with a beta-lactam antibiotic (Nafcillin, Oxacillin or Cefazolin) as definitive th erapy. MEDICAL COMPLEXITY High complexity medical decision making (need 2/3 categories) Problem - need 4 points Acute/new problem with new plan for workup (4 points, 1 max) Acute/new problem without additional workup (3 points, 1 max) Unstable chronic problem actively being managed (2 point each, 2 max) Stable chronic problem actively being managed (1 point each, 2 max) Self-limited/transient process (constipation, muscle ache, etc) (1 point each, 2 max) Data - need 4 points Reviewed labs/imaging studies (1 points, 2 max) Independent review of imaging (EKG, xrays, etc) (2 points, 2 max) Discussed case with consult/other MD/RN (2 points, 2 max) High Risk - qualify if have one of the following: Severe exacerbation of acute problem, acute mental status change, IV narcotic s, monitoring drug levels (vancomycin, INR, tacrolimus etc) Darryl Claudio M.D. Feb 18, 2020 08:51
--- NOTE | 2020-02-18 08:58 | Neurology Progress Note ---
Interim History Interim History Interim History 74-year-old female with history of hypertension taking medication and loss of balance for many years here complaining of syncope. Patient does not recall how many years she has been off balance however reports that she often uses a cane to ambulate and does not recall what the latest MRI which was done 4 years ago of her head indicated in regards to her off-balance symptom patient has not yet follow-up with primary doctor in that regard. Patient reports that she was sitting at a curb earlier today and got up too abruptly she was sitting in the heat and felt dizzy. Patient then landed on the floor however reports that she is in "sure that did not hit my head." Has a mass in forehead which reports that has been there for many years. this morning she is weaker on her left arm > face > leg mri brain is pending Objective Physical Exam Last Vital Signs Date Time Temp Pulse Resp B/P (MAP) Pulse Ox O2 Delivery O2 Flow Rate FiO2 02/18/20 04:00 98.2 78 20 154/80 (104) 97 02/18/20 01:54 Room Air Laboratory Tests Test 02/17/20 19:05 02/17/20 20:00 02/18/20 01:42 02/18/20 08:15 White Blood Count 5.9 K/UL (4.8-10.8) 5.4 K/UL (4.8-10.8) Red Blood Count 3.56 M/UL (4.20-5.40) L 3.39 M/UL (4.20-5.40) L Hemoglobin 11.8 G/DL (12.0-16.0) L 11.2 G/DL (12.0-16.0) L Hematocrit 37.3 % (37.0-47.0) 34.5 % (37.0-47.0) L Mean Corpuscular Volume 105 FL (80-99) H 102 FL (80-99) H Mean Corpuscular Hemoglobin 33.0 PG (27.0-31.0) H 33.0 PG (27.0-31.0) H Mean Corpuscular Hemoglobin Concent 31.5 G/DL (32.0-36.0) L 32.5 G/DL (32.0-36.0) Red Cell Distribution Width 13.6 % (11.6-14.8) 13.8 % (11.6-14.8) Platelet Count 303 K/UL (150-450) 262 K/UL (150-450) Mean Platelet Volume 5.9 FL (6.5-10.1) L 6.7 FL (6.5-10.1) Neutrophils (%) (Auto) 59.7 % (45.0-75.0) 46.3 % (45.0-75.0) Lymphocytes (%) (Auto) 31.2 % (20.0-45.0) 43.0 % (20.0-45.0) Monocytes (%) (Auto) 6.3 % (1.0-10.0) 8.2 % (1.0-10.0) Eosinophils (%) (Auto) 0.7 % (0.0-3.0) 1.4 % (0.0-3.0) Basophils (%) (Auto) 2.2 % (0.0-2.0) H 1.1 % (0.0-2.0) Sodium Level 138 MMOL/L (136-145) 139 MMOL/L (136-145) Potassium Level 4.4 MMOL/L (3.5-5.1) 3.8 MMOL/L (3.5-5.1) Chloride Level 106 MMOL/L (98-107) 108 MMOL/L (98-107) H Carbon Dioxide Level 26 MMOL/L (21-32) 26 MMOL/L (21-32) Anion Gap 6 mmol/L (5-15) 5 mmol/L (5-15) Blood Urea Nitrogen 21 mg/dL (7-18) H 16 mg/dL (7-18) Creatinine 1.2 MG/DL (0.55-1.30) 1.1 MG/DL (0.55-1.30) Estimat Glomerular Filtration Rate 53.2 mL/min (>60) 58.8 mL/min (>60) Glucose Level 129 MG/DL (74-106) H 131 MG/DL (74-106) H Calcium Level 9.4 MG/DL (8.5-10.1) 9.1 MG/DL (8.5-10.1) Total Bilirubin 0.3 MG/DL (0.2-1.0) Aspartate Amino Transf (AST/SGOT) 30 U/L (15-37) Alanine Aminotransferase (ALT/SGPT) 33 U/L (12-78) Alkaline Phosphatase 170 U/L (46-116) H Total Creatine Kinase 456 U/L (26-308) H Troponin I 0.011 ng/mL (0.000-0.056) 0.015 ng/mL (0.000-0.056) Pending Pro-B-Type Natriuretic Peptide 191 pg/mL (0-125) H Total Protein 7.4 G/DL (6.4-8.2) Albumin 3.6 G/DL (3.4-5.0) Globulin 3.8 g/dL Albumin/Globulin Ratio 0.9 (1.0-2.7) L Serum Alcohol < 3 mg/dL Urine Color Pale yellow Urine Appearance Slightly cloudy Urine pH 6 (4.5-8.0) Urine Specific [place] 1.015 (1.005-1.035) Urine Protein Negative (NEGATIVE) Urine Glucose (UA) 2+ (NEGATIVE) H Urine Ketones 1+ (NEGATIVE) H Urine Blood Negative (NEGATIVE) Urine Nitrite Negative (NEGATIVE) Urine Bilirubin Negative (NEGATIVE) Urine Urobilinogen Normal MG/DL (0.0-1.0) Urine Leukocyte Esterase 2+ (NEGATIVE) H Urine RBC 0-2 /HPF (0 - 2) Urine WBC 5-10 /HPF (0 - 2) H Urine Squamous Epithelial Cells Moderate /LPF (NONE/OCC) H Urine Amorphous Sediment Few /LPF (NONE) H Urine Bacteria Few /HPF (NONE) Urine Opiates Screen Negative (NEGATIVE) Urine Barbiturates Screen Negative (NEGATIVE) Phencyclidine (PCP) Screen Negative (NEGATIVE) Urine Amphetamines Screen Negative (NEGATIVE) Urine Benzodiazepines Screen Negative (NEGATIVE) Urine Cocaine Screen Negative (NEGATIVE) Urine Marijuana (THC) Screen Negative (NEGATIVE) Phosphorus Level 2.6 MG/DL (2.5-4.9) Magnesium Level 1.9 MG/DL (1.8-2.4) Neurologic Exam Mental Status: awake, alert Speech: normal speech Language: normal language Cranial Nerve II: fundus normal Cranial Nerves III, IV, : PERRLA Cranial Nerve V: normal facial sensations Objective nc at ab normal RRR left hemiparesis, arm 2/5, face 4/5, leg 3/5 Impression/Recommendations Problems: (1) Arthritis of left wrist (2) Weakness (3) Syncope Diagnostic Impression Likely subacute ischemic stroke, OOW for TPA left hemiparesis, fluctuating tele bp < 160/95 mri brain echo carotid us asa 81 lipitor 80 pt ot eval Current Medications Medications (Trade) Dose Ordered Sig/Yenny Route PRN Reason Start Time Stop Time Status Last Admin Dose Admin Acetaminophen (Tylenol) 650 mg Q6H PRN ORAL pain 1-3 02/18/20 01:15 03/19/20 01:14 Acetaminophen (Tylenol) 650 mg Q6H PRN ORAL temp of 100.5 or greater 02/18/20 01:15 03/19/20 01:14 Acetaminophen/ Hydrocodone Bitart ([place] 5/325) 1 tab Q6H PRN ORAL pain 7-10 02/18/20 02:00 02/25/20 01:59 02/18/20 02:33 Aspirin (ASA) 81 mg DAILY ORAL 02/18/20 09:00 04/03/20 08:59 Atorvastatin Calcium (Lipitor) 80 mg BEDTIME ORAL 02/18/20 21:00 05/18/20 20:59 Bupropion HCl (Wellbutrin) 300 mg DAILY ORAL 02/18/20 09:00 03/19/20 08:59 Hydralazine HCl (Apresoline) 10 mg Q4H PRN IV SBP > 160 02/18/20 01:15 05/18/20 01:14 Indomethacin (Indocin) 25 mg NEEDED NG 02/18/20 01:45 03/19/20 01:44 UNV Iohexol (Omnipaque 350 100ml) 100 ml NOW PRN INJ Radiology Procedure 02/17/20 21:45 02/19/20 21:44 Iohexol (Omnipaque 350 100ml) 100 ml NOW PRN INJ Radiology Procedure 02/17/20 21:45 02/19/20 21:44 Meclizine HCl (Antivert) 25 mg THREE TIMES A DAY ORAL 02/18/20 09:00 03/19/20 08:59 Quetiapine Fumarate (SEROqueL) 150 mg BEDTIME ORAL 02/18/20 21:00 04/03/20 20:59 Tramadol HCl (Ultram) 50 mg Q6H PRN ORAL Moderate Pain (Pain Scale 4-6) 02/18/20 01:45 02/25/20 01:44 Vamshi Broussard MD Feb 18, 2020 08:58
[2020-02-18] MEDS: Meclizine 25mg tab ORAL SCH ×3 (09:01→18:13)
[2020-02-18] MEDS: Aspirin Baby 81mg ORAL SCH (09:01)
[2020-02-18 12:00] VITALS: BP 146/79
[2020-02-18] MEDS ORDERED: Indomethacin 25mg cap ORAL PRN (13:45)
--- NOTE | 2020-02-18 15:09 | Diagnostic Imaging Report ---
Procedure: XRAY Chest 1v Reason for study: Chest pain Comparison films: 03/29/2007. FINDINGS: A single one view chest is obtained. Vascularity is normal. The lung mills are clear bilaterally. Cardiac and mediastinal silhouette are within normal limits. CP angles are sharp. The bony thorax appear unremarkable. IMPRESSION: NO ACUTE CARDIOPULMONARY DISEASE.
--- NOTE | 2020-02-18 15:21 | Diagnostic Imaging Report ---
EXAM: ULTRASOUND Carotid-Vert Duplex Scan-BILAT CLINICAL HISTORY: Reason For Exam: SYNCOPE. COMPARISON: None FINDINGS: Mild plaque formation noted. No significant stenosis by andersen scale. Velocities are as follow: Right: CCA= 100 cm/sec ICA = 63 cm/sec ECA = 79 cm/sec Left: CCA = 87 cm/sec ICA= 69 cm/sec ECA = 71 cm/sec ICA/CCA ratio are 0.6 on the right and 0.8 on the left. Antegrade flow is identified in the vertebral arteries bilaterally. IMPRESSION: NO HEMODYNAMICALLY SIGNIFICANT STENOSIS. Degree of stenosis is derived from SRU criteria.
--- NOTE | 2020-02-18 15:32 | NUR ---
NURSE NOTES: Patient had black flip phone with her in the morning. Patient would place it on her bed after talking to friends and family. At around 1200 patient was going to be taken down to MRI. At that time she began looking for her phone and could not find it. I looked all over her bed and could not find it either. I looked in her purse and on the floor, and there is no phone. Patient says that the person who did her Coratid duplex placed lots of towels on her bed and then picked them up and threw them in the dirty linen basket. I looked but the bag had recently been changed. We tried calling her phone but we could not hear anything. I called [employer] and asked if they had seen a phone they said no. They said they would contact the company that cleans the linens and ask them to return any phone found.
--- NOTE | 2020-02-18 15:32 | Diagnostic Imaging Report ---
EXAM: MRI MRI Brain no Contrast COMPARISON: CT head 02/17/2020 HISTORY: Altered mental status. Syncope. Left arm and leg weakness. Loss of balance for many years. TECHNIQUE: MR scan of the brain includes sagittal T1, axial T1, T2, FLAIR, diffusion-weighted and gradient sequences. FINDINGS: Diffuse age-related senescent changes noted with ventricular sulcal prominence as well as moderate white matter micro and hepatic changes. There is a small acute infarct in the posterior right [place] radiata adjacent to the right lateral ventricle. No evidence of hemorrhage, mass effect or shift. Ventricles and cisterns appear unremarkable. Brainstem and posterior fossa appear unremarkable. The sella and parasellar regions are normal. Normal flow voids identified in the carotid siphons. Sinuses, mastoid air cells and bony calvarium are intact. There is an incidental small scalp lipoma left frontal region. IMPRESSION: SMALL ACUTE WHITE MATTER INFARCT RIGHT POSTERIOR [place] RADIATA. NO HEMORRHAGE, MASS EFFECT OR SHIFT. FINDINGS CALLED TO PATIENT'S NURSE IN 2E. 02/18/2020 AT 3:25 PM
[2020-02-18 16:00] VITALS: BP 162/84
--- NOTE | 2020-02-18 18:16 | Consultation ---
History of Present Illness General Date patient seen: Feb 18, 2020 Reason for Hospitalization: Dizziness Present Illness HPI This is a very pleasant 74-year-old female with history of hypertension who is taking medication with side effect of decreased balance for many years came to [facility] complaining of syncope. Patient does not recall how many years she has been off balance however reports that she often uses a cane to ambulate and does not recall what the latest MRI which was done 4 years ago of her head indicated in regards to her off-balance symptom patient has not yet follow-up with primary doctor in that regard. Patient reports that she was sitting at a curb earlier and got up too abruptly she was sitting in the heat and felt dizzy. Patient then landed on the floor however reports that she is in "sure that did not hit my head." Has a mass in forehead which reports that has been there for many years. Denies any slurred speech and is neurovascularly intact. No unilateral generalized weakness noted. Reports the left arm has been feeling more weak since she felt dizzy earlier today. Patient reports that she had no seizure activity or dizziness prior to her syncopal episode. Reports that the paramedics came to the scene and assessed her and everything was within normal limits however patient went home and few hours later decided to come to the ED as her loss of balance was getting worse. Denies any nausea vomiting at this time. Denies all other injuries. Denies tobacco smoke and drug use. Denies any chest pain palpitation. Surgery called to trauma eval and mass on forehead. patient seen, chart reviewed, patient examined. Allergies: Coded Allergies: No Known Allergies (Unverified , 06/26/15) COVID-19 Screening Contact w/high risk pt: No Experienced COVID-19 symptoms?: No Medication History Scheduled Bupropion HCl (Bupropion Xl), 300 MG PO DAILY, (Reported) Captopril (Captopril), 50 MG PO DAILY, (Reported) Ciprofloxacin (Ciprofloxacin), 500 MG PO BID, (Reported) Fesoterodine Fumarate (Toviaz), 4 MG PO BEDTIME, (Reported) Hydrocodone Bit/Acetaminophen 5-325* ([place] 5-325 Tablet*), 1 TAB ORAL PRN, (Reported) Indomethacin (Indomethacin), 25 MG PO NEEDED, (Reported) Meclizine Hcl* (Meclizine*), 25 MG ORAL THREE TIMES A DAY Quetiapine Fumarate (Seroquel Xr), 150 MG ORAL BEDTIME, (Reported) Scheduled PRN Tramadol Hcl* (Ultram*), 50 MG ORAL Q6H PRN for For Pain Patient History Healthcare decision maker Resuscitation status Advanced Directive on File Review of Systems Review of Symptoms General ROS: no weight loss or fever Psychological ROS: no depression or mood changes, no memory loss Ophthalmic ROS: no visual changes or eye irritation ENT ROS: no nasal congestion, hearing loss, dizziness Allergy and Immunology ROS: no allergic symptoms or urticaria Hematological and Lymphatic ROS: no swollen glands, unusual bleeding or bruising Endocrine ROS: no polyuria, polydipsia, weight changes, temperature intolerance Respiratory ROS: no cough, shortness of breath, or wheezing Cardiovascular ROS: no chest pain or dyspnea on exertion Gastrointestinal ROS: denies abdominal pain, bright red blood in stool. Musculoskeletal ROS: no myalgias or arthralgias Neurological ROS: no TIA or stroke symptoms Dermatological ROS: no new or changing skin lesions, rashes or pruritis Physical Exam Physical Exam Sp02 EP Interpretation: reviewed, normal General Appearance: no apparent distress, alert, GCS 15, non-toxic Head: normocephalic, atraumatic Eyes: bilateral eye normal inspection, bilateral eye PERRL ENT: hearing grossly normal, normal pharynx, no angioedema, normal voice Neck: full range of motion, supple, thyroid normal, no meningismus, no bony tend, supple/symm/no masses, other - Nexus criteria is negative Respiratory: chest non-tender, lungs clear, normal breath sounds, no rhonchi, no respiratory distress, no retraction, no accessory muscle use, no wheezing, speaking full sentences Cardiovascular #1: normal peripheral pulses, regular rate, rhythm Gastrointestinal: non tender, soft, no organomegaly, no peritonitis Rectal: deferred Genitourinary: no CVA tenderness Musculoskeletal: back normal, digits/nails normal, pelvis stable, non-tender 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, motor strength/tone normal, oriented, distal neuro normal, oriented x3, sensory intact, responsive, speech normal Psychiatric: judgement/insight normal, memory normal, mood/affect normal, no suicidal/homicidal ideation Skin: no rash 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, 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, oriented x3, motor weakness - Mild left hand weakness 4+ out of 5 compared to the right mild left lower extremity weakness approximately 4+ out of 5 compared to the right, other - Speech normal Last 24 Hour Vital Signs Date Time Temp Pulse Resp B/P (MAP) Pulse Ox O2 Delivery O2 Flow Rate FiO2 02/18/20 17:17 182/91 02/18/20 16:21 96.9 02/18/20 16:00 96.9 90 20 162/84 (110) 98 02/18/20 16:00 91 02/18/20 12:00 98.2 74 20 146/79 (101) 98 02/18/20 12:00 79 02/18/20 09:00 Room Air 02/18/20 08:00 97.2 80 20 158/89 (112) 98 02/18/20 08:00 68 02/18/20 04:00 98.2 78 20 154/80 (104) 97 02/18/20 04:00 82 02/18/20 01:54 Room Air 02/18/20 00:20 79 02/17/20 22:15 98.4 68 17 154/79 100 Room Air 02/17/20 21:17 98.4 02/17/20 20:00 98.4 76 19 159/94 100 Room Air 02/17/20 18:52 98.4 19 166/73 100 Room Air 02/17/20 18:52 87 19 Room Air 02/17/20 18:45 98.4 87 19 166/73 (104) 100 Room Air Laboratory Tests Test 02/17/20 19:05 02/17/20 20:00 02/18/20 01:42 02/18/20 08:15 White Blood Count 5.9 K/UL (4.8-10.8) 5.4 K/UL (4.8-10.8) Red Blood Count 3.56 M/UL (4.20-5.40) L 3.39 M/UL (4.20-5.40) L Hemoglobin 11.8 G/DL (12.0-16.0) L 11.2 G/DL (12.0-16.0) L Hematocrit 37.3 % (37.0-47.0) 34.5 % (37.0-47.0) L Mean Corpuscular Volume 105 FL (80-99) H 102 FL (80-99) H Mean Corpuscular Hemoglobin 33.0 PG (27.0-31.0) H 33.0 PG (27.0-31.0) H Mean Corpuscular Hemoglobin Concent 31.5 G/DL (32.0-36.0) L 32.5 G/DL (32.0-36.0) Red Cell Distribution Width 13.6 % (11.6-14.8) 13.8 % (11.6-14.8) Platelet Count 303 K/UL (150-450) 262 K/UL (150-450) Mean Platelet Volume 5.9 FL (6.5-10.1) L 6.7 FL (6.5-10.1) Neutrophils (%) (Auto) 59.7 % (45.0-75.0) 46.3 % (45.0-75.0) Lymphocytes (%) (Auto) 31.2 % (20.0-45.0) 43.0 % (20.0-45.0) Monocytes (%) (Auto) 6.3 % (1.0-10.0) 8.2 % (1.0-10.0) Eosinophils (%) (Auto) 0.7 % (0.0-3.0) 1.4 % (0.0-3.0) Basophils (%) (Auto) 2.2 % (0.0-2.0) H 1.1 % (0.0-2.0) Sodium Level 138 MMOL/L (136-145) 139 MMOL/L (136-145) Potassium Level 4.4 MMOL/L (3.5-5.1) 3.8 MMOL/L (3.5-5.1) Chloride Level 106 MMOL/L (98-107) 108 MMOL/L (98-107) H Carbon Dioxide Level 26 MMOL/L (21-32) 26 MMOL/L (21-32) Anion Gap 6 mmol/L (5-15) 5 mmol/L (5-15) Blood Urea Nitrogen 21 mg/dL (7-18) H 16 mg/dL (7-18) Creatinine 1.2 MG/DL (0.55-1.30) 1.1 MG/DL (0.55-1.30) Estimat Glomerular Filtration Rate 53.2 mL/min (>60) 58.8 mL/min (>60) Glucose Level 129 MG/DL (74-106) H 131 MG/DL (74-106) H Calcium Level 9.4 MG/DL (8.5-10.1) 9.1 MG/DL (8.5-10.1) Total Bilirubin 0.3 MG/DL (0.2-1.0) Aspartate Amino Transf (AST/SGOT) 30 U/L (15-37) Alanine Aminotransferase (ALT/SGPT) 33 U/L (12-78) Alkaline Phosphatase 170 U/L (46-116) H Total Creatine Kinase 456 U/L (26-308) H Troponin I 0.011 ng/mL (0.000-0.056) 0.015 ng/mL (0.000-0.056) 0.013 ng/mL (0.000-0.056) Pro-B-Type Natriuretic Peptide 191 pg/mL (0-125) H Total Protein 7.4 G/DL (6.4-8.2) Albumin 3.6 G/DL (3.4-5.0) Globulin 3.8 g/dL Albumin/Globulin Ratio 0.9 (1.0-2.7) L Serum Alcohol < 3 mg/dL Urine Color Pale yellow Urine Appearance Slightly cloudy Urine pH 6 (4.5-8.0) Urine Specific [place] 1.015 (1.005-1.035) Urine Protein Negative (NEGATIVE) Urine Glucose (UA) 2+ (NEGATIVE) H Urine Ketones 1+ (NEGATIVE) H Urine Blood Negative (NEGATIVE) Urine Nitrite Negative (NEGATIVE) Urine Bilirubin Negative (NEGATIVE) Urine Urobilinogen Normal MG/DL (0.0-1.0) Urine Leukocyte Esterase 2+ (NEGATIVE) H Urine RBC 0-2 /HPF (0 - 2) Urine WBC 5-10 /HPF (0 - 2) H Urine Squamous Epithelial Cells Moderate /LPF (NONE/OCC) H Urine Amorphous Sediment Few /LPF (NONE) H Urine Bacteria Few /HPF (NONE) Urine Opiates Screen Negative (NEGATIVE) Urine Barbiturates Screen Negative (NEGATIVE) Phencyclidine (PCP) Screen Negative (NEGATIVE) Urine Amphetamines Screen Negative (NEGATIVE) Urine Benzodiazepines Screen Negative (NEGATIVE) Urine Cocaine Screen Negative (NEGATIVE) Urine Marijuana (THC) Screen Negative (NEGATIVE) Phosphorus Level 2.6 MG/DL (2.5-4.9) Magnesium Level 1.9 MG/DL (1.8-2.4) Height (Feet): 5 Height (Inches): 5.00 Weight (Pounds): 172 Medications Current Medications Medications (Trade) Dose Ordered Sig/Yenny Route PRN Reason Start Time Stop Time Status Last Admin Dose Admin Acetaminophen (Tylenol) 650 mg Q6H PRN ORAL pain 1-3 02/18/20 01:15 03/19/20 01:14 Acetaminophen (Tylenol) 650 mg Q6H PRN ORAL temp of 100.5 or greater 02/18/20 01:15 03/19/20 01:14 Acetaminophen/ Hydrocodone Bitart ([place] 5/325) 1 tab Q6H PRN ORAL pain 7-10 02/18/20 02:00 02/25/20 01:59 02/18/20 15:51 Amlodipine Besylate (Norvasc) 5 mg DAILY ORAL 02/19/20 09:00 03/20/20 08:59 Aspirin (ASA) 81 mg DAILY ORAL 02/18/20 09:00 04/03/20 08:59 02/18/20 09:01 Atorvastatin Calcium (Lipitor) 80 mg BEDTIME ORAL 02/18/20 21:00 05/18/20 20:59 Bupropion HCl (Wellbutrin) 300 mg DAILY ORAL 02/18/20 09:00 03/19/20 08:59 02/18/20 09:01 Hydralazine HCl (Apresoline) 10 mg Q4H PRN IV SBP > 160 02/18/20 01:15 05/18/20 01:14 02/18/20 17:17 Indomethacin (Indocin) 25 mg DAILYPRN PRN ORAL moderate pain 02/18/20 13:45 03/19/20 01:44 Iohexol (Omnipaque 350 100ml) 100 ml NOW PRN INJ Radiology Procedure 02/17/20 21:45 02/19/20 21:44 Iohexol (Omnipaque 350 100ml) 100 ml NOW PRN INJ Radiology Procedure 02/17/20 21:45 02/19/20 21:44 Meclizine HCl (Antivert) 25 mg THREE TIMES A DAY ORAL 02/18/20 09:00 03/19/20 08:59 1/7/21 13:42 Quetiapine Fumarate (SEROqueL) 150 mg BEDTIME ORAL 02/18/20 21:00 04/03/20 20:59 Tramadol HCl (Ultram) 50 mg Q6H PRN ORAL Moderate Pain (Pain Scale 4-6) 02/18/20 01:45 02/25/20 01:44 Assessment/Plan Problem List: (1) Fall Assessment & Plan: unknown LOC no acute trauma noted no significant hematoma or bruising mass head stable chronic neuro input noted appreciate eval pt/ot cardio input thank you Right: CCA= 100 cm/sec ICA = 63 cm/sec ECA = 79 cm/sec Left: CCA = 87 cm/sec ICA= 69 cm/sec ECA = 71 cm/sec ICA/CCA ratio are 0.6 on the right and 0.8 on the left. Antegrade flow is identified in the vertebral arteries bilaterally. IMPRESSION: NO HEMODYNAMICALLY SIGNIFICANT STENOSIS. ICD Codes: W19.XXXA - Unspecified fall, initial encounter SNOMED: 2708179, 116522878 (2) Mass of head Assessment & Plan: Brain: Mild generalized brain atrophy. Decreased attenuation within the deep white matter compatible with microangiopathic white matter disease. No hemorrhage. Ventricles: Unremarkable. No ventriculomegaly. Bones/joints: Unremarkable. No acute fracture. Soft tissues: Fatty lesion involving the scalp at the level of the left frontal bone suggestive of a small lipoma. This measures 2.6 x 0.3 cm. Sinuses: Unremarkable as visualized. No acute sinusitis. Mastoid air cells: Unremarkable as visualized. No mastoid effusion. IMPRESSION: Chronic changes as described. No acute intracranial hemorrhage or space-occupying lesion. lipoma benign not suggestive of fall okay for outpatient eval / removal as desired ICD Codes: R22.0 - Localized swelling, mass and lump, head SNOMED: 892660754 (3) Weakness ICD Codes: R53.1 - Weakness SNOMED: 35617353 (4) Syncope Assessment & Plan: Diffuse age-related senescent changes noted with ventricular sulcal prominence as well as moderate white matter micro and hepatic changes. There is a small acute infarct in the posterior right [place] radiata adjacent to the right lateral ventricle. No evidence of hemorrhage, mass effect or shift. Ventricles and cisterns appear unremarkable. Brainstem and posterior fossa appear unremarkable. The sella and parasellar regions are normal. Normal flow voids identified in the carotid siphons. Sinuses, mastoid air cells and bony calvarium are intact. There is an incidental small scalp lipoma left frontal region. IMPRESSION: SMALL ACUTE WHITE MATTER INFARCT RIGHT POSTERIOR [place] RADIATA. NO HEMORRHAGE, MASS EFFECT OR SHIFT. ICD Codes: R55 - Syncope and collapse SNOMED: 708328766 (5) Arthritis of left wrist ICD Codes: M19.90 - Unspecified osteoarthritis, unspecified site SNOMED: 1891888363745 Freeman Daily Feb 18, 2020 18:16
--- NOTE | 2020-02-18 19:10 | NUR ---
NURSE NOTES: Pt in bed awake, alert,oriented x4, able to make needs known. No resp distress noted. On classroom monitor. IV on right AC saline locked. No c/o pain or discomfort at this time. Bed in low position & locked. side rails up x3. Call light with in reach. Bed alarm on. Will continue plan of care.
--- NOTE | 2020-02-18 19:32 | NUR ---
NURSE HAND-OFF REPORT: Important Events on Shift:[Patient complaining of muscle spasms] Patient Status: []full code Diet: [Cardiac] Pending Orders: [] Pending Results/Labs:[] Pending MD notification:[Notified Dr. Claudio of MRI results. No new orders given] Latest Vital Signs: Temperature 96.9 , Pulse 91 , B/P 182 /91 , Respiratory Rate 20 , O2 SAT 98 , Room Air, O2 Flow Rate . Vital Sign Comment: [] EKG Rhythm: Sinus Rhythm Rhythm change?: N MD Notified?: - MD Response: Latest Hearn Fall Score: 50 Fall Risk: High Risk Safety Measures: Call light Within Reach, Bed Alarm Zone 2, Side Rails Side Rails x3, Bed position Low and Locked. Fall Precautions: Yellow Socks Yellow Gown Patient Fall Education Report given to [PETTY Hope].
--- NOTE | 2020-02-18 19:45 | NUR ---
NURSE NOTES: Pt c/o N/V. Notifed Dr. Ortiz, with new given will note and carry out.
[2020-02-18 20:00] VITALS: BP 143/86
[2020-02-18] MEDS: Cyclobenzaprine 10mg Tab ORAL PRN (20:21)
[2020-02-18] MEDS: Atorvastatin 80mg tab ORAL SCH (20:21)
[2020-02-19] VITALS: BP 119/63
[2020-02-19 04:00] VITALS: BP 146/75
--- NOTE | 2020-02-19 05:44 | Consultation ---
DATE OF CONSULTATION: 02/18/2020 CARDIOLOGY CONSULTATION CONSULTING PHYSICIAN: Darshan Morley MD REQUESTING PHYSICIAN: Darryl Claudio MD REASON FOR CONSULTATION: Cardiovascular management in the setting of acute cerebrovascular accident. HISTORY OF PRESENT ILLNESS: This female of age 74, presented to the hospital with dizziness and later she was unable to move her left side, specifically her arm. She was noted to have signs of a subacute cerebrovascular accident, but missed the window for tPA. I have been asked to assist with cardiovascular care. PAST MEDICAL HISTORY: Includes hypertension and osteoarthritis. ALLERGIES: None. MEDICATIONS: Reviewed. FAMILY HISTORY: Noncontributory. SOCIAL HISTORY: Negative for smoking, alcohol, or substance abuse. REVIEW OF SYSTEMS: No history of exertional chest pain, irregular heartbeats, rheumatic heart disease, or endocarditis. No history of diabetes or thyroid impairment. No history of abnormal blood clotting. PHYSICAL EXAMINATION: VITAL SIGNS: Afebrile, blood pressure 154/80, heart rate 78, respiratory rate 20, and oxygen saturation 100% on room air. HEENT: Left facial droop. Conjunctiva pink. Oropharynx clear. NECK: Supple. No bruits. LUNGS: Clear. CARDIAC: Regular rhythm and rate. Normal S1, S2 with a fourth heart sound. ABDOMEN: Soft, nontender. EXTREMITIES: With no edema. NEUROLOGIC: Strength is 1+ on the left upper extremity and 3+ on the left lower extremity. DIAGNOSTIC DATA: EKG with sinus rhythm, voltage for left ventricular hypertrophy; no acute abnormality. IMPRESSIONS: Acute cerebrovascular accident with left-sided paresis, hypertensive heart disease, and dysarthria. PLAN: Antiplatelet therapy. Carotid duplex. MRI of the brain. Titrate antihypertensive regimen. Avoid precipitous drop in blood pressure range. DVT prophylaxis. Empiric proton-pump inhibitor. Insulin coverage by sliding scale. Darshan Morley M.D. DR: Donna JOB#: [id number] CC:
[2020-02-19 06:30] LABS: BASOPHILS % (AUTO) 2.1 % (0.0-2.0); EOSINOPHILS % (AUTO) 1.6 % (0.0-3.0); HEMATOCRIT 33.7 % (37.0-47.0); HEMOGLOBIN 11.2 G/DL (12.0-16.0); LYMPHOCYTES % (AUTO) 33.7 % (20.0-45.0); MEAN CORPUSCULAR VOLUME 99 FL (80-99); MONOCYTES % (AUTO) 6.8 % (1.0-10.0); NEUTROPHILS % (AUTO) 55.7 % (45.0-75.0); PLATELET COUNT 267 K/UL (150-450); RED BLOOD COUNT 3.39 M/UL (4.20-5.40); RED CELL DISTRIBUTION WIDTH 13.8 % (11.6-14.8); WHITE BLOOD COUNT 5.6 K/UL (4.8-10.8)
[2020-02-19 06:53] LABS: CALCIUM 9.6 MG/DL (8.5-10.1); CREATININE 1.1 MG/DL (0.55-1.30); PHOSPHORUS 3.5 MG/DL (2.5-4.9); POTASSIUM 3.8 MMOL/L (3.5-5.1)
--- NOTE | 2020-02-19 07:28 | NUR ---
NURSE NOTES: Received patient report from PETTY Hope. Patient is AO x4. Breathing is even and unlabored with no signs of respiratory distress. No pain or discomfort noted at this time. Patient with IV on R AC 22G Saline lock, patent and intact. Bed in lowest position, locked with side rails x2 up. Call light within reach.
--- NOTE | 2020-02-19 07:29 | NUR ---
NURSE HAND-OFF REPORT: Important Events on Shift:[C/O n/v notified Dr. Ortiz with new orders for Zofran given] Patient Status: [full code/stable] Diet: [cardiac] Pending Orders: [] Pending Results/Labs:[] Pending MD notification:[] Latest Vital Signs: Temperature 98.0 , Pulse 84 , B/P 146 /75 , Respiratory Rate 16 , O2 SAT 96 , Room Air, O2 Flow Rate . Vital Sign Comment: [] EKG Rhythm: Sinus Rhythm Rhythm change?: N MD Notified?: N - MD Response: Latest Hearn Fall Score: 50 Fall Risk: High Risk Safety Measures: Call light Within Reach, Bed Alarm Zone 2, Side Rails Side Rails x3, Bed position Low and Locked. Fall Precautions: Yellow Socks Yellow Gown Patient Fall Education Report given to [PETTY JACOME].
[2020-02-19 08:00] VITALS: BP 152/84
[2020-02-19] MEDS: Meclizine 25mg tab ORAL SCH ×3 (08:47→18:08)
[2020-02-19] MEDS: Aspirin Baby 81mg ORAL SCH (08:48)
--- NOTE | 2020-02-19 10:46 | Surgery Progress Note ---
Surgery Progress Note Subjective Additional Comments Patient seen and examined bedside. No acute events. Resting comfortably. Labs reviewed micro reviewed imaging reviewed. Afebrile hemodynamically stable at this time Objective Last 24 Hour Vital Signs Date Time Temp Pulse Resp B/P (MAP) Pulse Ox O2 Delivery O2 Flow Rate FiO2 02/19/20 09:00 Room Air 02/19/20 08:48 87 152/84 02/19/20 08:00 83 02/19/20 08:00 96.9 87 20 152/84 (106) 96 02/19/20 04:00 84 02/19/20 04:00 98.0 85 16 146/75 (98) 96 02/19/20 00:00 98.1 91 16 119/63 (81) 97 02/19/20 00:00 82 02/18/20 21:00 Room Air 02/18/20 20:00 106 02/18/20 20:00 98.1 98 24 143/86 (105) 99 02/18/20 17:17 182/91 02/18/20 16:21 96.9 02/18/20 16:00 96.9 90 20 162/84 (110) 98 02/18/20 16:00 91 02/18/20 12:00 98.2 74 20 146/79 (101) 98 02/18/20 12:00 79 I&O Intake and Output 02/18/20 02/19/20 19:00 07:00 Intake Total 300 ml Balance 300 ml Intake Oral 300 ml # Voids 4 3 Cardiovascular: RSR Respiratory: decreased breath sounds Abdomen: soft, non-tender, present bowel sounds, non-distended Extremities: no edema, no tenderness, no cyanosis Laboratory Tests Test 02/19/20 05:35 White Blood Count 5.6 K/UL (4.8-10.8) Red Blood Count 3.39 M/UL (4.20-5.40) L Hemoglobin 11.2 G/DL (12.0-16.0) L Hematocrit 33.7 % (37.0-47.0) L Mean Corpuscular Volume 99 FL (80-99) Mean Corpuscular Hemoglobin 33.1 PG (27.0-31.0) H Mean Corpuscular Hemoglobin Concent 33.2 G/DL (32.0-36.0) Red Cell Distribution Width 13.8 % (11.6-14.8) Platelet Count 267 K/UL (150-450) Mean Platelet Volume 6.2 FL (6.5-10.1) L Neutrophils (%) (Auto) 55.7 % (45.0-75.0) Lymphocytes (%) (Auto) 33.7 % (20.0-45.0) Monocytes (%) (Auto) 6.8 % (1.0-10.0) Eosinophils (%) (Auto) 1.6 % (0.0-3.0) Basophils (%) (Auto) 2.1 % (0.0-2.0) H Sodium Level 139 MMOL/L (136-145) Potassium Level 3.8 MMOL/L (3.5-5.1) Chloride Level 106 MMOL/L (98-107) Carbon Dioxide Level 28 MMOL/L (21-32) Anion Gap 5 mmol/L (5-15) Blood Urea Nitrogen 19 mg/dL (7-18) H Creatinine 1.1 MG/DL (0.55-1.30) Estimat Glomerular Filtration Rate 58.8 mL/min (>60) Glucose Level 162 MG/DL (74-106) H Calcium Level 9.6 MG/DL (8.5-10.1) Phosphorus Level 3.5 MG/DL (2.5-4.9) Magnesium Level 2.1 MG/DL (1.8-2.4) Plan Problems: (1) Fall Assessment & Plan: unknown LOC no acute trauma noted no significant hematoma or bruising mass head stable chronic neuro input noted appreciate eval pt/ot cardio input thank you Right: CCA= 100 cm/sec ICA = 63 cm/sec ECA = 79 cm/sec Left: CCA = 87 cm/sec ICA= 69 cm/sec ECA = 71 cm/sec ICA/CCA ratio are 0.6 on the right and 0.8 on the left. Antegrade flow is identified in the vertebral arteries bilaterally. IMPRESSION: NO HEMODYNAMICALLY SIGNIFICANT STENOSIS. (2) Mass of head Assessment & Plan: Brain: Mild generalized brain atrophy. Decreased attenuation within the deep white matter compatible with microangiopathic white matter disease. No hemorrhage. Ventricles: Unremarkable. No ventriculomegaly. Bones/joints: Unremarkable. No acute fracture. Soft tissues: Fatty lesion involving the scalp at the level of the left frontal bone suggestive of a small lipoma. This measures 2.6 x 0.3 cm. Sinuses: Unremarkable as visualized. No acute sinusitis. Mastoid air cells: Unremarkable as visualized. No mastoid effusion. IMPRESSION: Chronic changes as described. No acute intracranial hemorrhage or space-occupying lesion. lipoma benign not suggestive of fall okay for outpatient eval / removal as desired (3) Weakness (4) Syncope Assessment & Plan: Diffuse age-related senescent changes noted with ventricular sulcal prominence as well as moderate white matter micro and hepatic changes. There is a small acute infarct in the posterior right [place] radiata adjacent to the right lateral ventricle. No evidence of hemorrhage, mass effect or shift. Ventricles and cisterns appear unremarkable. Brainstem and posterior fossa appear unremarkable. The sella and parasellar regions are normal. Normal flow voids identified in the carotid siphons. Sinuses, mastoid air cells and bony calvarium are intact. There is an incidental small scalp lipoma left frontal region. IMPRESSION: SMALL ACUTE WHITE MATTER INFARCT RIGHT POSTERIOR [place] RADIATA. NO HEMORRHAGE, MASS EFFECT OR SHIFT. (5) Arthritis of left wrist Freeman Daily Feb 19, 2020 10:46
--- NOTE | 2020-02-19 11:44 | Neurology Progress Note ---
Interim History Interim History Events: no acute distress covering Dr. Hale Objective Physical Exam Last Vital Signs Date Time Temp Pulse Resp B/P (MAP) Pulse Ox O2 Delivery O2 Flow Rate FiO2 02/19/20 09:00 Room Air 02/19/20 08:48 87 152/84 02/19/20 08:00 96.9 20 96 Laboratory Tests Test 02/19/20 05:35 White Blood Count 5.6 K/UL (4.8-10.8) Red Blood Count 3.39 M/UL (4.20-5.40) L Hemoglobin 11.2 G/DL (12.0-16.0) L Hematocrit 33.7 % (37.0-47.0) L Mean Corpuscular Volume 99 FL (80-99) Mean Corpuscular Hemoglobin 33.1 PG (27.0-31.0) H Mean Corpuscular Hemoglobin Concent 33.2 G/DL (32.0-36.0) Red Cell Distribution Width 13.8 % (11.6-14.8) Platelet Count 267 K/UL (150-450) Mean Platelet Volume 6.2 FL (6.5-10.1) L Neutrophils (%) (Auto) 55.7 % (45.0-75.0) Lymphocytes (%) (Auto) 33.7 % (20.0-45.0) Monocytes (%) (Auto) 6.8 % (1.0-10.0) Eosinophils (%) (Auto) 1.6 % (0.0-3.0) Basophils (%) (Auto) 2.1 % (0.0-2.0) H Sodium Level 139 MMOL/L (136-145) Potassium Level 3.8 MMOL/L (3.5-5.1) Chloride Level 106 MMOL/L (98-107) Carbon Dioxide Level 28 MMOL/L (21-32) Anion Gap 5 mmol/L (5-15) Blood Urea Nitrogen 19 mg/dL (7-18) H Creatinine 1.1 MG/DL (0.55-1.30) Estimat Glomerular Filtration Rate 58.8 mL/min (>60) Glucose Level 162 MG/DL (74-106) H Calcium Level 9.6 MG/DL (8.5-10.1) Phosphorus Level 3.5 MG/DL (2.5-4.9) Magnesium Level 2.1 MG/DL (1.8-2.4) Neurologic Exam Mental Status: awake, alert Speech: normal speech Language: normal language Cranial Nerve II: fundus normal Cranial Nerves III, IV, : PERRLA Cranial Nerve V: normal facial sensations Objective Mental Status: awake, alert Speech: normal speech Language: normal language Cranial Nerve II: fundus normal Cranial Nerves III, IV, : PERRLA Cranial Nerve V: normal facial sensations Objective nc at ab normal RRR left hemiparesis, arm 2/5, face 4/5, leg 3/5 Impression/Recommendations Diagnostic Impression Assessment and Rec's: 1. Likely subacute ischemic stroke, OOW for TPA --> left hemiparesis, fluctuating --> MRI Brain revealed Small acute white matter infarct right posterior [place] radiata. NO HEMORRHAGE, MASS EFFECT OR SHIFT. 2. Syncope --> continue monitoring on Tele --> BP goal < 160/95 --> 2D Echo reviewed Normal LVEF 60% --> carotid us no significant stenosis --> continue asa 81mg po daily --> continue statin lipitor 80mg po daily 3. Arthritis Left Wrist 4. Weakness --> PT/OT Sandra Cazares NP Feb 19, 2020 11:44
[2020-02-19 12:00] VITALS: BP 157/76
[2020-02-19] MEDS: HYDROcodone/Acetamin 5/325 tab ORAL PRN ×2 (12:54→21:39)
--- NOTE | 2020-02-19 12:57 | Cardiology Report ---
APPROVED REPORT EKG Measurement Heart [id number] <Conclusion> Normal sinus rhythm Possible Left atrial enlargement Septal infarct, age undetermined Abnormal ECG
--- NOTE | 2020-02-19 15:26 | NUR ---
CASE MANAGEMENT:REVIEW 02/19/20 SI: ACUTE CVA. SYNCOPE. WEAKNESS 98.2 86 18 157/76 100% ON RA GLUCOSE+162 IS: NORVASC PO QD SEROQUEL PO QHS ASA PO QD MECLIZINE PO TID WELLBUTRIN PO QD : TELEMETRY STATUS
--- NOTE | 2020-02-19 15:31 | Internal Med Progress Note ---
Subjective Physician Name Darryl Claudio Attending Physician Darryl Claudio M.D. Current Medications Medications (Trade) Dose Ordered Sig/Yenny Route PRN Reason Start Time Stop Time Status Last Admin Dose Admin Acetaminophen (Tylenol) 650 mg Q6H PRN ORAL pain 1-3 02/18/20 01:15 03/19/20 01:14 Acetaminophen (Tylenol) 650 mg Q6H PRN ORAL temp of 100.5 or greater 02/18/20 01:15 03/19/20 01:14 Acetaminophen/ Hydrocodone Bitart ([place] 5/325) 1 tab Q6H PRN ORAL pain 7-10 02/18/20 02:00 02/25/20 01:59 02/19/20 12:54 Amlodipine Besylate (Norvasc) 5 mg DAILY ORAL 02/19/20 09:00 03/20/20 08:59 02/19/20 08:48 Aspirin (ASA) 81 mg DAILY ORAL 02/18/20 09:00 04/03/20 08:59 02/19/20 08:48 Atorvastatin Calcium (Lipitor) 80 mg BEDTIME ORAL 02/18/20 21:00 05/18/20 20:59 02/18/20 20:21 Bupropion HCl (Wellbutrin) 300 mg DAILY ORAL 02/18/20 09:00 03/19/20 08:59 02/19/20 08:48 Cyclobenzaprine HCl (Flexeril) 10 mg TIDPRN PRN ORAL Muscle Spasm 02/18/20 18:45 02/25/20 18:44 02/18/20 20:21 Hydralazine HCl (Apresoline) 10 mg Q4H PRN IV SBP > 160 02/18/20 01:15 05/18/20 01:14 02/18/20 17:17 Indomethacin (Indocin) 25 mg DAILYPRN PRN ORAL moderate pain 02/18/20 13:45 03/19/20 01:44 Iohexol (Omnipaque 350 100ml) 100 ml NOW PRN INJ Radiology Procedure 02/17/20 21:45 02/19/20 21:44 Iohexol (Omnipaque 350 100ml) 100 ml NOW PRN INJ Radiology Procedure 02/17/20 21:45 02/19/20 21:44 Meclizine HCl (Antivert) 25 mg THREE TIMES A DAY ORAL 02/18/20 09:00 03/19/20 08:59 02/19/20 12:53 Ondansetron HCl (Zofran) 4 mg Q4H PRN IVP Nausea & Vomiting 02/18/20 20:00 03/19/20 19:59 02/18/20 20:21 Quetiapine Fumarate (SEROqueL) 150 mg BEDTIME ORAL 02/18/20 21:00 04/03/20 20:59 02/18/20 20:21 Tramadol HCl (Ultram) 50 mg Q6H PRN ORAL Moderate Pain (Pain Scale 4-6) 02/18/20 01:45 02/25/20 01:44 Allergies: Coded Allergies: No Known Allergies (Unverified , 06/26/15) All Systems: reviewed and negative except above Subjective left sided weakness fluctuating brain MRI shows acute lacunar stroke Objective Last Vital Signs Date Time Temp Pulse Resp B/P (MAP) Pulse Ox O2 Delivery O2 Flow Rate FiO2 02/19/20 12:00 93 02/19/20 12:00 98.2 18 157/76 (103) 100 02/19/20 09:00 Room Air General Appearance: no apparent distress, alert EENT: PERRL/EOMI, normal ENT inspection Neck: non-tender, normal alignment Cardiovascular: normal peripheral pulses, normal rate Neurologic: other - left sided weakness Laboratory Tests Test 02/19/20 05:35 White Blood Count 5.6 K/UL (4.8-10.8) Red Blood Count 3.39 M/UL (4.20-5.40) L Hemoglobin 11.2 G/DL (12.0-16.0) L Hematocrit 33.7 % (37.0-47.0) L Mean Corpuscular Volume 99 FL (80-99) Mean Corpuscular Hemoglobin 33.1 PG (27.0-31.0) H Mean Corpuscular Hemoglobin Concent 33.2 G/DL (32.0-36.0) Red Cell Distribution Width 13.8 % (11.6-14.8) Platelet Count 267 K/UL (150-450) Mean Platelet Volume 6.2 FL (6.5-10.1) L Neutrophils (%) (Auto) 55.7 % (45.0-75.0) Lymphocytes (%) (Auto) 33.7 % (20.0-45.0) Monocytes (%) (Auto) 6.8 % (1.0-10.0) Eosinophils (%) (Auto) 1.6 % (0.0-3.0) Basophils (%) (Auto) 2.1 % (0.0-2.0) H Sodium Level 139 MMOL/L (136-145) Potassium Level 3.8 MMOL/L (3.5-5.1) Chloride Level 106 MMOL/L (98-107) Carbon Dioxide Level 28 MMOL/L (21-32) Anion Gap 5 mmol/L (5-15) Blood Urea Nitrogen 19 mg/dL (7-18) H Creatinine 1.1 MG/DL (0.55-1.30) Estimat Glomerular Filtration Rate 58.8 mL/min (>60) Glucose Level 162 MG/DL (74-106) H Calcium Level 9.6 MG/DL (8.5-10.1) Phosphorus Level 3.5 MG/DL (2.5-4.9) Magnesium Level 2.1 MG/DL (1.8-2.4) Intake and Output 02/18/20 02/19/20 19:00 07:00 Intake Total 300 ml Balance 300 ml Intake Oral 300 ml # Voids 4 3 Assessment/Plan Assessment/Plan #CVA #Left sided weakness #HTN #lightheadedness #elevated - tele - neuro eval - brain MRI- lacunar stoke - 2d echo - carotid US no sig stenosis - cardiology eval - asa 81 - lipitror 80 - monitor BP - monitor Darryl King M.D. Feb 19, 2020 15:31
[2020-02-19 16:00] VITALS: BP 157/76
--- NOTE | 2020-02-19 17:21 | Cardiology Progress Note ---
Subjective DATE OF SERVICE: Feb 19, 2020 Still with fluctuating paresis of left side; upper extremity affected predominantly. BP parameters stable Objective Last 24 Hour Vital Signs Date Time Temp Pulse Resp B/P (MAP) Pulse Ox O2 Delivery O2 Flow Rate FiO2 02/19/20 16:00 97.4 79 20 157/76 (103) 98 02/19/20 16:00 83 02/19/20 12:00 93 02/19/20 12:00 98.2 86 18 157/76 (103) 100 02/19/20 09:00 Room Air 02/19/20 08:48 87 152/84 02/19/20 08:00 83 02/19/20 08:00 96.9 87 20 152/84 (106) 96 02/19/20 04:00 84 02/19/20 04:00 98.0 85 16 146/75 (98) 96 02/19/20 00:00 98.1 91 16 119/63 (81) 97 02/19/20 00:00 82 02/18/20 21:00 Room Air 02/18/20 20:00 106 02/18/20 20:00 98.1 98 24 143/86 (105) 99 HEENT: normal ENT inspection RHYTHM: NSR LUNGS: lungs clear bilaterally CARDIAC: normal rate, regular rhythm, normal S1 and S2 ABDOMEN: normal bowel sounds, non tender, soft, no organomegaly EXTREMITIES: No edema, other - left hemiparesis - predomnantly upper extr Laboratory Tests Test 02/19/20 05:35 White Blood Count 5.6 K/UL (4.8-10.8) Red Blood Count 3.39 M/UL (4.20-5.40) L Hemoglobin 11.2 G/DL (12.0-16.0) L Hematocrit 33.7 % (37.0-47.0) L Mean Corpuscular Volume 99 FL (80-99) Mean Corpuscular Hemoglobin 33.1 PG (27.0-31.0) H Mean Corpuscular Hemoglobin Concent 33.2 G/DL (32.0-36.0) Red Cell Distribution Width 13.8 % (11.6-14.8) Platelet Count 267 K/UL (150-450) Mean Platelet Volume 6.2 FL (6.5-10.1) L Neutrophils (%) (Auto) 55.7 % (45.0-75.0) Lymphocytes (%) (Auto) 33.7 % (20.0-45.0) Monocytes (%) (Auto) 6.8 % (1.0-10.0) Eosinophils (%) (Auto) 1.6 % (0.0-3.0) Basophils (%) (Auto) 2.1 % (0.0-2.0) H Sodium Level 139 MMOL/L (136-145) Potassium Level 3.8 MMOL/L (3.5-5.1) Chloride Level 106 MMOL/L (98-107) Carbon Dioxide Level 28 MMOL/L (21-32) Anion Gap 5 mmol/L (5-15) Blood Urea Nitrogen 19 mg/dL (7-18) H Creatinine 1.1 MG/DL (0.55-1.30) Estimat Glomerular Filtration Rate 58.8 mL/min (>60) Glucose Level 162 MG/DL (74-106) H Calcium Level 9.6 MG/DL (8.5-10.1) Phosphorus Level 3.5 MG/DL (2.5-4.9) Magnesium Level 2.1 MG/DL (1.8-2.4) Assessment/Plan Assessment/Plan Subacute CVA with left hemiparesis and dysarthria Hypertensive urgency resolving Hypertension/HHD Hyperlipidemia Anti-platelet therapy Statin drug PT/OT/ST Cautious titration of antiHTN regimen for BP control Continuous cardiac monitoring Darshan Morley MD Feb 19, 2020 17:21
--- NOTE | 2020-02-19 19:37 | NUR ---
NURSE HAND-OFF REPORT: Important Events on Shift:NA Patient Status: Stable Diet: Cardiac Diet Pending Orders: NA Pending Results/Labs:NA Pending MD notification:NA Latest Vital Signs: Temperature 97.4 , Pulse 79 , B/P 157 /76 , Respiratory Rate 20 , O2 SAT 98 , Room Air, O2 Flow Rate . Vital Sign Comment: Stable EKG Rhythm: Sinus Rhythm Rhythm change?: N MD Notified?: N - MD Response: Latest Hearn Fall Score: 50 Fall Risk: High Risk Safety Measures: Call light Within Reach, Bed Alarm Zone 2, Side Rails Side Rails x3, Bed position Low and Locked. Fall Precautions: Yellow Socks Yellow Gown Patient Fall Education Report given to PETTY [place].
[2020-02-19 20:00] VITALS: BP 155/83
--- NOTE | 2020-02-19 20:00 | NUR ---
NURSE NOTES: RECEIVE PATIENT LYING IN BED, AWAKE, ALERT/ORIENTED X3, VERBALLY RESPONSIVE, DENIES PAIN. LIPOMA MID FOREHEAD, NO SURGICAL INTERVENTION. NO SIGNS AND SYMPTOMS OF ACUTE CARDIO RESPIRATORY DISTRESS/SHORTNESS OF BREATH, DENIES CHEST PAIN. NOTED WITH NON PRODUCTIVE/DRY COUGH. REQUIRE MAX ASSIST WITH ADL'S SECONDARY TO CVA WITH LEFT SIDE WEAKNESS, ROOM AIR. IV INTACT TO LEFT AC/GAUGE 22, NO REDNESS/SWELLING NOTED. ABDOMEN SOFT/NON DISTENDED/NON TENDER, AUDIBLE BOWEL SOUNDS, DENIES N/V/D. SIDE RAILS UP X3/BED IN LOWEST POSITION FOR SAFETY, ENCOURAGED PATIENT TO UTILIZE CALL LIGHT FOR ASSISTANCE, VERBALIZED UNDERSTANDING. CONTINUE WITH CURRENT PLAN OF CARE. NAD.
[2020-02-19] MEDS: Atorvastatin 80mg tab ORAL SCH (20:38)
[2020-02-20] VITALS: BP 145/73
--- NOTE | 2020-02-20 03:47 | NUR ---
NURSE NOTES:PATIENT STATED THAT SHE HAS NOT HAD A BOWEL MOVEMENT SINCE SATURDAY MORNING, NO PRN'S AVAILABLE, ENCOURAGED PATIENT TO DRINK MORE FLUIDS, SUCH PRUNE JUICE, ESPECIALLY WATER, INCREASE INTAKE OF FIBER, AVOID WHITE BREAD, REPOSITIONED MORE FREQUENTLY WHILE IN BED, VERBALIZED UNDERSTANDING. WILL ENDORSE TO AM NURSE TO FOLLOW UP WITH MD TO OBTAIN PRN ORDER FOR CONSTIPATION, POSSIBLE STOOL SOFTENER.
[2020-02-20 04:00] VITALS: BP 159/87
[2020-02-20 06:22] LABS: BASOPHILS % (AUTO) 1.9 % (0.0-2.0); EOSINOPHILS % (AUTO) 3.3 % (0.0-3.0); HEMOGLOBIN 12.7 G/DL (12.0-16.0); LYMPHOCYTES % (AUTO) 34.1 % (20.0-45.0); MEAN CORPUSCULAR VOLUME 102 FL (80-99); MONOCYTES % (AUTO) 8.2 % (1.0-10.0); NEUTROPHILS % (AUTO) 52.6 % (45.0-75.0); PLATELET COUNT 314 K/UL (150-450); RED BLOOD COUNT 3.82 M/UL (4.20-5.40); RED CELL DISTRIBUTION WIDTH 13.9 % (11.6-14.8); WHITE BLOOD COUNT 4.8 K/UL (4.8-10.8)
[2020-02-20 06:30] LABS: CALCIUM 9.9 MG/DL (8.5-10.1); CREATININE 1.2 MG/DL (0.55-1.30); PHOSPHORUS 3.1 MG/DL (2.5-4.9)
--- NOTE | 2020-02-20 07:25 | NUR ---
NURSE NOTES: RECEIVE PATIENT LYING IN BED, AWAKE, ALERT/ORIENTED X3, ABLE TO VERBALIZE NEEDS. DENIES PAIN/DISCOMFORT NOTED. NO SIGNS AND SYMPTOMS OF ACUTE CARDIO-RESPIRATORY DISTRESS/SHORTNESS OF BREATH, DENIES CHEST PAIN. REQUIRES MAX WITH TWO STAFF ASSIST WITH ADL'S SECONDARY TO CVA WITH LEFT SIDE WEAKNESS, ROOM AIR. PIV INTACT TO LEFT AC/GAUGE 22, NO REDNESS/SWELLING NOTED. ABDOMEN SOFT/NON DISTENDED/NON TENDER, AUDIBLE BOWEL SOUNDS, DENIES N/V/D. BED IS INT HE LOWEST POSITION. SIDERAILS UP X3/BED IN LOWEST POSITION FOR SAFETY, ENCOURAGED PATIENT TO UTILIZE CALL LIGHT FOR ASSISTANCE, VERBALIZED UNDERSTANDING. CONTINUE WITH CURRENT PLAN OF CARE.
[2020-02-20 08:00] VITALS: BP 142/92
--- NOTE | 2020-02-20 08:06 | NUR ---
NURSE HAND-OFF REPORT: Important Events on PATIENT STATED NO BOWEL MOVEMENT SINCE Saturday02/17/20, ENDORSED TO AM NURSE TO FOLLOW UP WITH MD REGARDING PRN CONSTIPATION ORDER, POSSIBLE STOOL SOFTENER. Patient Status: [STABLE, AFEBRILE] Diet: [CARDIAC Pending Orders: [N/A] Pending Results/Labs:[] Pending MD notification:[] Latest Vital Signs: Temperature 97.6 , Pulse 85 , B/P 159 /87 , Respiratory Rate 18 , O2 SAT 99 , Room Air, O2 Flow Rate . Vital Sign Comment: [ELEVATED B/P 159/87. ASYMPTOMATIC] EKG Rhythm: Sinus Rhythm Rhythm change?: N MD Notified?: N - MD Response: Latest Hearn Fall Score: 50 Fall Risk: High Risk Safety Measures: Call light Within Reach, Bed Alarm Zone 2, Side Rails Side Rails x3, Bed position Low and Locked. Fall Precautions: Yellow Socks Yellow Gown Patient Fall Education Report given to [KAROLINA KUMAR].
[2020-02-20] MEDS: Meclizine 25mg tab ORAL SCH ×3 (09:07→17:19)
[2020-02-20] MEDS: Aspirin Baby 81mg ORAL SCH (09:08)
--- NOTE | 2020-02-20 11:53 | Surgery Progress Note ---
Surgery Progress Note Subjective Additional Comments neuro input otherwise resting comfortable no n/v Objective Last 24 Hour Vital Signs Date Time Temp Pulse Resp B/P (MAP) Pulse Ox O2 Delivery O2 Flow Rate FiO2 02/20/20 09:09 92 142/92 02/20/20 09:00 Room Air 02/20/20 08:00 94 02/20/20 08:00 97.9 92 16 142/92 (109) 97 02/20/20 04:17 85 02/20/20 04:00 97.6 77 18 159/87 (111) 99 02/20/20 00:00 75 02/20/20 00:00 98.1 73 16 145/73 (97) 96 02/19/20 22:09 97.4 02/19/20 20:00 Room Air 02/19/20 20:00 98.5 74 18 155/83 (107) 97 02/19/20 20:00 75 02/19/20 16:00 97.4 79 20 157/76 (103) 98 02/19/20 16:00 83 02/19/20 12:00 93 02/19/20 12:00 98.2 86 18 157/76 (103) 100 I&O Intake and Output 02/19/20 02/20/20 19:00 07:00 Intake Total 360 ml 480 ml Output Total 900 ml Balance -540 ml 480 ml Intake Oral 360 ml 480 ml Output Urine Total 900 ml # Voids 2 Cardiovascular: RSR Respiratory: clear Abdomen: soft, flat, non-tender, present bowel sounds, non-distended Extremities: no tenderness, no cyanosis, other Laboratory Tests Test 02/20/20 04:30 White Blood Count 4.8 K/UL (4.8-10.8) Red Blood Count 3.82 M/UL (4.20-5.40) L Hemoglobin 12.7 G/DL (12.0-16.0) Hematocrit 39.0 % (37.0-47.0) Mean Corpuscular Volume 102 FL (80-99) H Mean Corpuscular Hemoglobin 33.3 PG (27.0-31.0) H Mean Corpuscular Hemoglobin Concent 32.6 G/DL (32.0-36.0) Red Cell Distribution Width 13.9 % (11.6-14.8) Platelet Count 314 K/UL (150-450) Mean Platelet Volume 5.9 FL (6.5-10.1) L Neutrophils (%) (Auto) 52.6 % (45.0-75.0) Lymphocytes (%) (Auto) 34.1 % (20.0-45.0) Monocytes (%) (Auto) 8.2 % (1.0-10.0) Eosinophils (%) (Auto) 3.3 % (0.0-3.0) H Basophils (%) (Auto) 1.9 % (0.0-2.0) Sodium Level 139 MMOL/L (136-145) Potassium Level 4.0 MMOL/L (3.5-5.1) Chloride Level 106 MMOL/L (98-107) Carbon Dioxide Level 29 MMOL/L (21-32) Anion Gap 4 mmol/L (5-15) L Blood Urea Nitrogen 21 mg/dL (7-18) H Creatinine 1.2 MG/DL (0.55-1.30) Estimat Glomerular Filtration Rate 53.2 mL/min (>60) Glucose Level 145 MG/DL (74-106) H Calcium Level 9.9 MG/DL (8.5-10.1) Phosphorus Level 3.1 MG/DL (2.5-4.9) Magnesium Level 2.0 MG/DL (1.8-2.4) Plan Problems: (1) Fall Assessment & Plan: unknown LOC no acute trauma noted no significant hematoma or bruising mass head stable chronic neuro input noted appreciate eval pt/ot cardio input thank you Right: CCA= 100 cm/sec ICA = 63 cm/sec ECA = 79 cm/sec Left: CCA = 87 cm/sec ICA= 69 cm/sec ECA = 71 cm/sec ICA/CCA ratio are 0.6 on the right and 0.8 on the left. Antegrade flow is identified in the vertebral arteries bilaterally. IMPRESSION: NO HEMODYNAMICALLY SIGNIFICANT STENOSIS. (2) Mass of head Assessment & Plan: Brain: Mild generalized brain atrophy. Decreased attenuation within the deep white matter compatible with microangiopathic white matter disease. No hemorrhage. Ventricles: Unremarkable. No ventriculomegaly. Bones/joints: Unremarkable. No acute fracture. Soft tissues: Fatty lesion involving the scalp at the level of the left frontal bone suggestive of a small lipoma. This measures 2.6 x 0.3 cm. Sinuses: Unremarkable as visualized. No acute sinusitis. Mastoid air cells: Unremarkable as visualized. No mastoid effusion. IMPRESSION: Chronic changes as described. No acute intracranial hemorrhage or space-occupying lesion. lipoma benign not suggestive of fall okay for outpatient eval / removal as desired (3) Weakness (4) Syncope Assessment & Plan: Diffuse age-related senescent changes noted with ventricular sulcal prominence as well as moderate white matter micro and hepatic changes. There is a small acute infarct in the posterior right [place] radiata adjacent to the right lateral ventricle. No evidence of hemorrhage, mass effect or shift. Ventricles and cisterns appear unremarkable. Brainstem and posterior fossa appear unremarkable. The sella and parasellar regions are normal. Normal flow voids identified in the carotid siphons. Sinuses, mastoid air cells and bony calvarium are intact. There is an incidental small scalp lipoma left frontal region. IMPRESSION: SMALL ACUTE WHITE MATTER INFARCT RIGHT POSTERIOR [place] RADIATA. NO HEMORRHAGE, MASS EFFECT OR SHIFT. (5) Arthritis of left wrist Freeman Daily Feb 20, 2020 11:53
[2020-02-20 12:00] VITALS: BP 142/88
--- NOTE | 2020-02-20 12:48 | Internal Med Progress Note ---
Subjective Physician Name Darryl Claudio Attending Physician Darryl Claudio M.D. Current Medications Medications (Trade) Dose Ordered Sig/Yenny Route PRN Reason Start Time Stop Time Status Last Admin Dose Admin Acetaminophen (Tylenol) 650 mg Q6H PRN ORAL pain 1-3 02/18/20 01:15 03/19/20 01:14 Acetaminophen (Tylenol) 650 mg Q6H PRN ORAL temp of 100.5 or greater 02/18/20 01:15 03/19/20 01:14 Acetaminophen/ Hydrocodone Bitart ([place] 5/325) 1 tab Q6H PRN ORAL pain 7-10 02/18/20 02:00 02/25/20 01:59 02/19/20 21:39 Amlodipine Besylate (Norvasc) 5 mg DAILY ORAL 02/19/20 09:00 03/20/20 08:59 02/20/20 09:09 Aspirin (ASA) 81 mg DAILY ORAL 02/18/20 09:00 04/03/20 08:59 02/20/20 09:08 Atorvastatin Calcium (Lipitor) 80 mg BEDTIME ORAL 02/18/20 21:00 05/18/20 20:59 02/19/20 20:38 Bupropion HCl (Wellbutrin) 300 mg DAILY ORAL 02/18/20 09:00 03/19/20 08:59 02/20/20 09:08 Cyclobenzaprine HCl (Flexeril) 10 mg TIDPRN PRN ORAL Muscle Spasm 02/18/20 18:45 02/25/20 18:44 02/18/20 20:21 Hydralazine HCl (Apresoline) 10 mg Q4H PRN IV SBP > 160 02/18/20 01:15 05/18/20 01:14 02/18/20 17:17 Indomethacin (Indocin) 25 mg DAILYPRN PRN ORAL moderate pain 02/18/20 13:45 03/19/20 01:44 Meclizine HCl (Antivert) 25 mg THREE TIMES A DAY ORAL 02/18/20 09:00 03/19/20 08:59 02/20/20 12:27 Ondansetron HCl (Zofran) 4 mg Q4H PRN IVP Nausea & Vomiting 02/18/20 20:00 03/19/20 19:59 02/18/20 20:21 Quetiapine Fumarate (SEROqueL) 150 mg BEDTIME ORAL 02/18/20 21:00 04/03/20 20:59 02/19/20 20:38 Tramadol HCl (Ultram) 50 mg Q6H PRN ORAL Moderate Pain (Pain Scale 4-6) 02/18/20 01:45 02/25/20 01:44 Allergies: Coded Allergies: No Known Allergies (Unverified , 06/26/15) All Systems: reviewed and negative except above Subjective left sided weakness fluctuating brain MRI shows acute lacunar stroke Objective Last Vital Signs Date Time Temp Pulse Resp B/P (MAP) Pulse Ox O2 Delivery O2 Flow Rate FiO2 02/20/20 09:09 92 142/92 02/20/20 09:00 Room Air 02/20/20 08:00 97.9 16 97 Laboratory Tests Test 02/20/20 04:30 White Blood Count 4.8 K/UL (4.8-10.8) Red Blood Count 3.82 M/UL (4.20-5.40) L Hemoglobin 12.7 G/DL (12.0-16.0) Hematocrit 39.0 % (37.0-47.0) Mean Corpuscular Volume 102 FL (80-99) H Mean Corpuscular Hemoglobin 33.3 PG (27.0-31.0) H Mean Corpuscular Hemoglobin Concent 32.6 G/DL (32.0-36.0) Red Cell Distribution Width 13.9 % (11.6-14.8) Platelet Count 314 K/UL (150-450) Mean Platelet Volume 5.9 FL (6.5-10.1) L Neutrophils (%) (Auto) 52.6 % (45.0-75.0) Lymphocytes (%) (Auto) 34.1 % (20.0-45.0) Monocytes (%) (Auto) 8.2 % (1.0-10.0) Eosinophils (%) (Auto) 3.3 % (0.0-3.0) H Basophils (%) (Auto) 1.9 % (0.0-2.0) Sodium Level 139 MMOL/L (136-145) Potassium Level 4.0 MMOL/L (3.5-5.1) Chloride Level 106 MMOL/L (98-107) Carbon Dioxide Level 29 MMOL/L (21-32) Anion Gap 4 mmol/L (5-15) L Blood Urea Nitrogen 21 mg/dL (7-18) H Creatinine 1.2 MG/DL (0.55-1.30) Estimat Glomerular Filtration Rate 53.2 mL/min (>60) Glucose Level 145 MG/DL (74-106) H Calcium Level 9.9 MG/DL (8.5-10.1) Phosphorus Level 3.1 MG/DL (2.5-4.9) Magnesium Level 2.0 MG/DL (1.8-2.4) Intake and Output 02/19/20 02/20/20 19:00 07:00 Intake Total 360 ml 480 ml Output Total 900 ml Balance -540 ml 480 ml Intake Oral 360 ml 480 ml Output Urine Total 900 ml # Voids 2 Objective General appearance: alert, cooperative, no distress, appears stated age Head: Normocephalic, without obvious abnormality, atraumatic Eyes: conjunctivae/corneas clear. PERRL, EOM's intact. Fundi benign Throat: Lips, mucosa, and tongue normal. Teeth and gums normal Neck: supple, symmetrical, trachea midline, no adenopathy, thyroid: not enlarged, symmetric, no tenderness/mass/nodules, no carotid bruit and no JVD Lungs: clear to auscultation bilaterally Heart: regular rate and rhythm, S1, S2 normal, no murmur, click, rub or gallop Abdomen: soft, non-tender. Bowel sounds normal. No masses, no organomegaly Extremities: extremities normal, atraumatic, no cyanosis or edema Pulses: 2+ and symmetric Skin: Skin color, texture, turgor normal. No rashes or lesions Neurologic: Left sided weakness Assessment/Plan Assessment/Plan #CVA #Left sided weakness #HTN #lightheadedness #elevated - tele - neuro eval - brain MRI- lacunar stoke - 2d echo - carotid US no sig stenosis - cardiology eval - asa 81 - lipitror 80 - monitor BP - monitor Darryl King M.D. Feb 20, 2020 12:48
[2020-02-20 16:00] VITALS: BP 137/93
[2020-02-20] MEDS: traMADol 50mg tab ORAL PRN (17:25)
--- NOTE | 2020-02-20 17:47 | Cardiology Progress Note ---
Subjective DATE OF SERVICE: Feb 20, 2020 Still with fluctuating paresis of left side; upper extremity affected predominantly. BP parameters stable. Monitor: sinus with no significant ectopy. Objective Last 24 Hour Vital Signs Date Time Temp Pulse Resp B/P (MAP) Pulse Ox O2 Delivery O2 Flow Rate FiO2 02/20/20 16:00 98.7 63 18 137/93 (108) 97 02/20/20 12:00 96.6 93 19 142/88 (106) 96 02/20/20 09:09 92 142/92 02/20/20 09:00 Room Air 02/20/20 08:00 94 02/20/20 08:00 97.9 92 16 142/92 (109) 97 02/20/20 04:17 85 02/20/20 04:00 97.6 77 18 159/87 (111) 99 02/20/20 00:00 75 02/20/20 00:00 98.1 73 16 145/73 (97) 96 02/19/20 22:09 97.4 02/19/20 20:00 Room Air 02/19/20 20:00 98.5 74 18 155/83 (107) 97 02/19/20 20:00 75 ROS: no change from my inital evaluation HEENT: normal ENT inspection RHYTHM: NSR LUNGS: lungs clear bilaterally CARDIAC: normal rate, regular rhythm, normal S1 and S2 ABDOMEN: normal bowel sounds, non tender, soft, no organomegaly EXTREMITIES: No edema, other - left hemiparesis - predomnantly upper extr Laboratory Tests Test 02/20/20 04:30 White Blood Count 4.8 K/UL (4.8-10.8) Red Blood Count 3.82 M/UL (4.20-5.40) L Hemoglobin 12.7 G/DL (12.0-16.0) Hematocrit 39.0 % (37.0-47.0) Mean Corpuscular Volume 102 FL (80-99) H Mean Corpuscular Hemoglobin 33.3 PG (27.0-31.0) H Mean Corpuscular Hemoglobin Concent 32.6 G/DL (32.0-36.0) Red Cell Distribution Width 13.9 % (11.6-14.8) Platelet Count 314 K/UL (150-450) Mean Platelet Volume 5.9 FL (6.5-10.1) L Neutrophils (%) (Auto) 52.6 % (45.0-75.0) Lymphocytes (%) (Auto) 34.1 % (20.0-45.0) Monocytes (%) (Auto) 8.2 % (1.0-10.0) Eosinophils (%) (Auto) 3.3 % (0.0-3.0) H Basophils (%) (Auto) 1.9 % (0.0-2.0) Sodium Level 139 MMOL/L (136-145) Potassium Level 4.0 MMOL/L (3.5-5.1) Chloride Level 106 MMOL/L (98-107) Carbon Dioxide Level 29 MMOL/L (21-32) Anion Gap 4 mmol/L (5-15) L Blood Urea Nitrogen 21 mg/dL (7-18) H Creatinine 1.2 MG/DL (0.55-1.30) Estimat Glomerular Filtration Rate 53.2 mL/min (>60) Glucose Level 145 MG/DL (74-106) H Calcium Level 9.9 MG/DL (8.5-10.1) Phosphorus Level 3.1 MG/DL (2.5-4.9) Magnesium Level 2.0 MG/DL (1.8-2.4) Assessment/Plan Assessment/Plan Subacute CVA with left hemiparesis and dysarthria Hypertensive urgency resolving Hypertension/HHD Hyperlipidemia Anti-platelet therapy Statin drug PT/OT/ST Cautious titration of antiHTN regimen for BP control Continuous cardiac monitoring Darshan Morley MD Feb 20, 2020 17:47
--- NOTE | 2020-02-20 19:21 | NUR ---
NURSE HAND-OFF REPORT: Important Events on Shift:[OFFERED PRUNE JUICE FOR CONSTIPATION. KEPT CLEAN AND COMFORTABLE] Patient Status: [STABLE] Diet: [CARDIAC] Pending Orders: [DAILY LABS] Pending Results/Labs:[AM] Pending MD notification:[] Latest Vital Signs: Temperature 98.7 , Pulse 63 , B/P 137 /93 , Respiratory Rate 18 , O2 SAT 97 , Room Air, O2 Flow Rate . Vital Sign Comment: [] EKG Rhythm: Sinus Rhythm Rhythm change?: N MD Notified?: N - MD Response: Latest Hearn Fall Score: 50 Fall Risk: High Risk Safety Measures: Call light Within Reach, Bed Alarm Zone 2, Side Rails Side Rails x3, Bed position Low and Locked. Fall Precautions: Yellow Socks Yellow Gown Patient Fall Education Report given to [ZAC].
--- NOTE | 2020-02-20 19:25 | NUR ---
NURSE NOTES: Received pt and report from PETTY Pleitez. Observed pt resting in bed with both eyes open. Pt is A/Ox4. 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 IV site intact, asymptomatic, and patent. Bed is in the lowest position and locked. Call light and bedside table is within reach. No signs/symptoms of acute distress noted. Will continue plan of care.
[2020-02-20 20:00] VITALS: BP 148/84
[2020-02-20] MEDS: Cyclobenzaprine 10mg Tab ORAL PRN (20:03)
[2020-02-20] MEDS: Atorvastatin 80mg tab ORAL SCH (21:49)
[2020-02-21] VITALS: BP 145/88
--- NOTE | 2020-02-21 02:10 | NUR ---
NURSE NOTES: Observed pt asleep in bed. No signs/symptoms of acute distress noted. Will continue plan of care.
[2020-02-21 04:00] VITALS: BP 148/82
[2020-02-21] MEDS: HYDROcodone/Acetamin 5/325 tab ORAL PRN ×3 (05:14→18:43)
--- NOTE | 2020-02-21 07:47 | NUR ---
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 Pt complained of back pain and Lt leg muscle spasm. Administered Arbuckle PO and Flexeril PO last night. Patient Status: Stable Diet: Cardiac Pending Orders: N Pending Results/Labs: AM Labs Pending MD notification: N Latest Vital Signs: Temperature 98.0 , Pulse 75 , B/P 148 /82 , Respiratory Rate 19 , O2 SAT 97 , Room Air, O2 Flow Rate . EKG Rhythm: Sinus Rhythm Rhythm change?: N Latest Hearn Fall Score: 50 Fall Risk: High Risk Safety Measures: Call light Within Reach, Bed Alarm Zone 2, Side Rails Side Rails x3, Bed position Low and Locked. Fall Precautions: Yellow Socks Yellow Gown Patient Fall Education Report given to PETTY Fonseca.
--- NOTE | 2020-02-21 07:50 | NUR ---
NURSE NOTES: Pt received from Clement RN. pt in bed eating breakfast, bed low and locked, call light within reach. no distress noted.
[2020-02-21 08:00] VITALS: BP 137/72
--- NOTE | 2020-02-21 08:05 | Neurology Progress Note ---
Interim History Interim History Events: covering Dr. Hale, pt and st pending Objective Physical Exam Last Vital Signs Date Time Temp Pulse Resp B/P (MAP) Pulse Ox O2 Delivery O2 Flow Rate FiO2 02/21/20 05:44 98.0 02/21/20 04:00 96 19 148/82 (104) 97 02/20/20 21:00 Room Air Neurologic Exam Mental Status: awake, alert Speech: normal speech Language: normal language Cranial Nerve II: fundus normal Cranial Nerves III, IV, : PERRLA Cranial Nerve V: normal facial sensations Objective Mental Status: awake, alert Speech: normal speech Language: normal language Cranial Nerve II: fundus normal Cranial Nerves III, IV, : PERRLA Cranial Nerve V: normal facial sensations Objective nc at ab normal RRR left hemiparesis, arm 2/5, face 4/5, leg 3/5 Impression/Recommendations Diagnostic Impression Assessment and Rec's: 1. Likely acute ischemic stroke, OOW for TPA --> left hemiparesis, fluctuating --> MRI Brain revealed Small acute white matter infarct right posterior [place] radiata. NO HEMORRHAGE, MASS EFFECT OR SHIFT. --> ST eval ordered as well. 2. Syncope --> continue monitoring on Tele --> BP goal < 160/95 --> 2D Echo reviewed Normal LVEF 60% --> carotid us no significant stenosis --> continue asa 81mg po daily --> continue statin lipitor 80mg po daily 3. Arthritis Left Wrist 4. Weakness --> PT/OT Sandra Cazares NP Feb 21, 2020 08:05
[2020-02-21 08:23] LABS: EOSINOPHILS % (AUTO) 2.4 % (0.0-3.0); HEMATOCRIT 37.1 % (37.0-47.0); HEMOGLOBIN 11.8 G/DL (12.0-16.0); LYMPHOCYTES % (AUTO) 27.4 % (20.0-45.0); MEAN CORPUSCULAR VOLUME 103 FL (80-99); MONOCYTES % (AUTO) 6.1 % (1.0-10.0); NEUTROPHILS % (AUTO) 62.1 % (45.0-75.0); PLATELET COUNT 289 K/UL (150-450); RED BLOOD COUNT 3.59 M/UL (4.20-5.40); RED CELL DISTRIBUTION WIDTH 13.5 % (11.6-14.8); WHITE BLOOD COUNT 6.1 K/UL (4.8-10.8)
[2020-02-21 08:30] LABS: CALCIUM 9.5 MG/DL (8.5-10.1); CREATININE 1.1 MG/DL (0.55-1.30); PHOSPHORUS 3.4 MG/DL (2.5-4.9); POTASSIUM 4.2 MMOL/L (3.5-5.1)
[2020-02-21] MEDS: Meclizine 25mg tab ORAL SCH ×3 (08:53→17:20)
[2020-02-21] MEDS: Aspirin Baby 81mg ORAL SCH (08:53)
[2020-02-21] MEDS: Metoprolol Succinate XL 25mg tab ORAL SCH (08:54)
--- NOTE | 2020-02-21 09:09 | NUR ---
NURSE NOTES: Re wellbutrin, opened all 3 but pt refused to take 3rd, stating "2 is enough for me". Disposed of opened 3rd pill in RX waste in med room.
--- NOTE | 2020-02-21 09:30 | NUR ---
PT EVALUATION NOTE Patient seen for initial evaluation and treatment initiated. Patient presents with L side weakness and decreased postural stability which impairs patient's ability to perform mobility tasks safely. Patient requires mod/max assist for bed mobility tasks and min assist to maintain sitting at the EOB. Patient unable to stand at this time. Patient will benefit from skilled inpatient PT intervention to increase postural stability and strength for improved level of functional mobility and safety. Recommend discharge to ARU/SNF for continued rehab once medically cleared by MD. Addendum: 02/21/20 at 1122 by NATASHA HERNANDEZ PT Amended: Links added.
[2020-02-21] MEDS ORDERED: Varibar Thin Liquid powder 148gm MC PRN (10:30)
[2020-02-21] MEDS ORDERED: Varibar Nectar 240ml MC PRN (10:30)
[2020-02-21] MEDS ORDERED: Varibar Pudding 230ml MC PRN (10:30)
[2020-02-21] MEDS ORDERED: Varibar Honey 250ml MC PRN (10:30)
[2020-02-21 12:00] VITALS: BP 142/81
--- NOTE | 2020-02-21 12:08 | Internal Med Progress Note ---
Subjective Physician Name Darryl Claudio Attending Physician Darryl Claudio M.D. Current Medications Medications (Trade) Dose Ordered Sig/Yenny Route PRN Reason Start Time Stop Time Status Last Admin Dose Admin Acetaminophen (Tylenol) 650 mg Q6H PRN ORAL pain 1-3 02/18/20 01:15 03/19/20 01:14 Acetaminophen (Tylenol) 650 mg Q6H PRN ORAL temp of 100.5 or greater 02/18/20 01:15 03/19/20 01:14 Acetaminophen/ Hydrocodone Bitart ([place] 5/325) 1 tab Q6H PRN ORAL pain 7-10 02/18/20 02:00 02/25/20 01:59 02/21/20 05:14 Amlodipine Besylate (Norvasc) 5 mg DAILY ORAL 02/19/20 09:00 03/20/20 08:59 02/21/20 08:53 Aspirin (ASA) 81 mg DAILY ORAL 02/18/20 09:00 04/03/20 08:59 02/21/20 08:53 Atorvastatin Calcium (Lipitor) 80 mg BEDTIME ORAL 02/18/20 21:00 05/18/20 20:59 02/20/20 21:49 Barium Sulfate (Varibar Honey) 250 ml NOW PRN MC RAD 02/21/20 10:30 02/24/20 10:17 Barium Sulfate (Varibar Co[place]) 240 ml NOW PRN MC RAD 02/21/20 10:30 02/24/20 10:17 Barium Sulfate (Varibar Pudding) 230 ml NOW PRN MC RAD 02/21/20 10:30 02/24/20 10:17 Barium Sulfate (Varibar Thin Liquid powder) 148 gm NOW PRN MC RAD 02/21/20 10:30 02/24/20 10:17 Bupropion HCl (Wellbutrin) 300 mg DAILY ORAL 02/18/20 09:00 03/19/20 08:59 02/21/20 08:53 Cyclobenzaprine HCl (Flexeril) 10 mg TIDPRN PRN ORAL Muscle Spasm 02/18/20 18:45 02/25/20 18:44 02/20/20 20:03 Hydralazine HCl (Apresoline) 10 mg Q4H PRN IV SBP > 160 02/18/20 01:15 05/18/20 01:14 02/18/20 17:17 Indomethacin (Indocin) 25 mg DAILYPRN PRN ORAL moderate pain 02/18/20 13:45 03/19/20 01:44 Meclizine HCl (Antivert) 25 mg THREE TIMES A DAY ORAL 02/18/20 09:00 03/19/20 08:59 02/21/20 08:53 Metoprolol Succinate (Toprol XL) 25 mg DAILY ORAL 02/21/20 09:00 05/21/20 08:59 02/21/20 08:54 Ondansetron HCl (Zofran) 4 mg Q4H PRN IVP Nausea & Vomiting 02/18/20 20:00 03/19/20 19:59 02/18/20 20:21 Quetiapine Fumarate (SEROqueL) 150 mg BEDTIME ORAL 02/18/20 21:00 04/03/20 20:59 02/20/20 21:49 Tramadol HCl (Ultram) 50 mg Q6H PRN ORAL Moderate Pain (Pain Scale 4-6) 02/18/20 01:45 02/25/20 01:44 02/20/20 17:25 Allergies: Coded Allergies: No Known Allergies (Unverified , 06/26/15) ROS Limited/Unobtainable: No Constitutional: Reports: weakness HEENT: Denies: no symptoms, eye pain, blurred vision, tearing, double vision, ear pain, ear discharge, nose pain, nose congestion, throat pain, throat swelling, mouth pain, mouth swelling, other Cardiovascular: Denies: no symptoms, chest pain, edema, irregular heart rate, lightheadedness, palpitations, syncope, other Respiratory: Denies: no symptoms, cough, orthopnea, shortness of breath, SOB with excertion, SOB at rest, sputum, stridor, wheezing, other Gastrointestinal/Abdominal: Denies: no symptoms, abdomen distended, abdominal pain, black stools, tarry stools, blood in stool, constipated, diarrhea, difficulty swallowing, nausea, poor appetite, poor fluid intake, rectal bleeding, vomiting, other Genitourinary: Denies: no symptoms, burning, discharge, frequency, flank pain, hematuria, incontinence, pain, urgency, other Neurologic/Psychiatric: Denies: no symptoms, anxiety, depressed, emotional problems, headache, numbness, paresthesia, pre-existing deficit, seizure, tingling, tremors, weakness, other Subjective left sided weakness fluctuating brain MRI shows acute lacunar stroke Objective Last Vital Signs Date Time Temp Pulse Resp B/P (MAP) Pulse Ox O2 Delivery O2 Flow Rate FiO2 02/21/20 09:00 Room Air 02/21/20 08:54 72 137/72 02/21/20 08:00 98.4 21 98 Laboratory Tests Test 02/21/20 06:47 White Blood Count 6.1 K/UL (4.8-10.8) Red Blood Count 3.59 M/UL (4.20-5.40) L Hemoglobin 11.8 G/DL (12.0-16.0) L Hematocrit 37.1 % (37.0-47.0) Mean Corpuscular Volume 103 FL (80-99) H Mean Corpuscular Hemoglobin 32.9 PG (27.0-31.0) H Mean Corpuscular Hemoglobin Concent 31.9 G/DL (32.0-36.0) L Red Cell Distribution Width 13.5 % (11.6-14.8) Platelet Count 289 K/UL (150-450) Mean Platelet Volume 6.3 FL (6.5-10.1) L Neutrophils (%) (Auto) 62.1 % (45.0-75.0) Lymphocytes (%) (Auto) 27.4 % (20.0-45.0) Monocytes (%) (Auto) 6.1 % (1.0-10.0) Eosinophils (%) (Auto) 2.4 % (0.0-3.0) Basophils (%) (Auto) 2.0 % (0.0-2.0) Sodium Level 140 MMOL/L (136-145) Potassium Level 4.2 MMOL/L (3.5-5.1) Chloride Level 106 MMOL/L (98-107) Carbon Dioxide Level 28 MMOL/L (21-32) Anion Gap 6 mmol/L (5-15) Blood Urea Nitrogen 20 mg/dL (7-18) H Creatinine 1.1 MG/DL (0.55-1.30) Estimat Glomerular Filtration Rate 58.8 mL/min (>60) Glucose Level 141 MG/DL (74-106) H Calcium Level 9.5 MG/DL (8.5-10.1) Phosphorus Level 3.4 MG/DL (2.5-4.9) Magnesium Level 2.1 MG/DL (1.8-2.4) Intake and Output 02/20/20 02/21/20 19:00 07:00 Intake Total 480 ml Output Total 350 ml Balance 480 ml -350 ml Intake Oral 480 ml Output Urine Total 350 ml # Voids 3 1 Objective General appearance: alert, cooperative, no distress, appears stated age Head: Normocephalic, without obvious abnormality, atraumatic Eyes: conjunctivae/corneas clear. PERRL, EOM's intact. Fundi benign Throat: Lips, mucosa, and tongue normal. Teeth and gums normal Neck: supple, symmetrical, trachea midline, no adenopathy, thyroid: not enlarged, symmetric, no tenderness/mass/nodules, no carotid bruit and no JVD Lungs: clear to auscultation bilaterally Heart: regular rate and rhythm, S1, S2 normal, no murmur, click, rub or gallop Abdomen: soft, non-tender. Bowel sounds normal. No masses, no organomegaly Extremities: extremities normal, atraumatic, no cyanosis or edema Pulses: 2+ and symmetric Skin: Skin color, texture, turgor normal. No rashes or lesions Neurologic: Left sided weakness Assessment/Plan Assessment/Plan #CVA #Left sided weakness #HTN #lightheadedness #elevated - tele - neuro eval - brain MRI- lacunar stoke - 2d echo - carotid US no sig stenosis - cardiology eval - asa 81 - lipitror 80 - monitor BP - monitor Darryl King M.D. Feb 21, 2020 12:08
--- NOTE | 2020-02-21 13:35 | Surgery Progress Note ---
Surgery Progress Note Subjective Additional Comments eating well no n/v comfortable appearing neuro input appreciated Objective Last 24 Hour Vital Signs Date Time Temp Pulse Resp B/P (MAP) Pulse Ox O2 Delivery O2 Flow Rate FiO2 02/21/20 12:00 79 02/21/20 12:00 97.8 85 21 142/81 (101) 96 02/21/20 09:00 Room Air 02/21/20 08:54 72 137/72 02/21/20 08:53 72 137/72 02/21/20 08:00 84 02/21/20 08:00 98.4 72 21 137/72 (93) 98 02/21/20 05:44 98.0 02/21/20 04:00 98.0 96 19 148/82 (104) 97 02/21/20 04:00 75 02/21/20 00:00 80 02/21/20 00:00 98.6 96 20 145/88 (107) 96 02/20/20 21:00 Room Air 02/20/20 20:00 98.4 93 20 148/84 (105) 96 02/20/20 20:00 91 02/20/20 17:55 98.7 02/20/20 16:00 86 02/20/20 16:00 98.7 63 18 137/93 (108) 97 I&O Intake and Output 02/20/20 02/21/20 19:00 07:00 Intake Total 480 ml Output Total 350 ml Balance 480 ml -350 ml Intake Oral 480 ml Output Urine Total 350 ml # Voids 3 1 Cardiovascular: RSR Respiratory: clear Abdomen: soft, non-tender, present bowel sounds, non-distended Extremities: no edema, no tenderness, no cyanosis Laboratory Tests Test 02/21/20 06:47 White Blood Count 6.1 K/UL (4.8-10.8) Red Blood Count 3.59 M/UL (4.20-5.40) L Hemoglobin 11.8 G/DL (12.0-16.0) L Hematocrit 37.1 % (37.0-47.0) Mean Corpuscular Volume 103 FL (80-99) H Mean Corpuscular Hemoglobin 32.9 PG (27.0-31.0) H Mean Corpuscular Hemoglobin Concent 31.9 G/DL (32.0-36.0) L Red Cell Distribution Width 13.5 % (11.6-14.8) Platelet Count 289 K/UL (150-450) Mean Platelet Volume 6.3 FL (6.5-10.1) L Neutrophils (%) (Auto) 62.1 % (45.0-75.0) Lymphocytes (%) (Auto) 27.4 % (20.0-45.0) Monocytes (%) (Auto) 6.1 % (1.0-10.0) Eosinophils (%) (Auto) 2.4 % (0.0-3.0) Basophils (%) (Auto) 2.0 % (0.0-2.0) Sodium Level 140 MMOL/L (136-145) Potassium Level 4.2 MMOL/L (3.5-5.1) Chloride Level 106 MMOL/L (98-107) Carbon Dioxide Level 28 MMOL/L (21-32) Anion Gap 6 mmol/L (5-15) Blood Urea Nitrogen 20 mg/dL (7-18) H Creatinine 1.1 MG/DL (0.55-1.30) Estimat Glomerular Filtration Rate 58.8 mL/min (>60) Glucose Level 141 MG/DL (74-106) H Calcium Level 9.5 MG/DL (8.5-10.1) Phosphorus Level 3.4 MG/DL (2.5-4.9) Magnesium Level 2.1 MG/DL (1.8-2.4) Plan Problems: (1) Fall Assessment & Plan: unknown LOC no acute trauma noted no significant hematoma or bruising mass head stable chronic neuro input noted appreciate eval pt/ot cardio input thank you Right: CCA= 100 cm/sec ICA = 63 cm/sec ECA = 79 cm/sec Left: CCA = 87 cm/sec ICA= 69 cm/sec ECA = 71 cm/sec ICA/CCA ratio are 0.6 on the right and 0.8 on the left. Antegrade flow is identified in the vertebral arteries bilaterally. IMPRESSION: NO HEMODYNAMICALLY SIGNIFICANT STENOSIS. (2) Mass of head Assessment & Plan: Brain: Mild generalized brain atrophy. Decreased att enuation within the deep white matter compatible with microangiopathic white matter disease. No hemorrhage. Ventricles: Unremarkable. No ventriculomegaly. Bones/joints: Unremarkable. No acute fracture. Soft tissues: Fatty lesion involving the scalp at the level of the left frontal bone suggestive of a small lipoma. This measures 2.6 x 0.3 cm. Sinuses: Unremarkable as visualized. No acute sinusitis. Mastoid air cells: Unremarkable as visualized. No mastoid effusion. IMPRESSION: Chronic changes as described. No acute intracranial hemorrhage or space-occupying lesion. lipoma benign not suggestive of fall okay for outpatient eval / removal as desired (3) Weakness (4) Syncope Assessment & Plan: Diffuse age-related senescent changes noted with ventricular sulcal prominence as well as moderate white matter micro and hepatic changes. There is a small acute infarct in the posterior right [place] radiata adjacent to the right lateral ventricle. No evidence of hemorrhage, mass effect or shift. Ventricles and cisterns appear unremarkable. Brainstem and posterior fossa appear unremarkable. The sella and parasellar regions are normal. Normal flow voids identified in the carotid siphons. Sinuses, mastoid air cells and bony calvarium are intact. There is an incidental small scalp lipoma left frontal region. IMPRESSION: SMALL ACUTE WHITE MATTER INFARCT RIGHT POSTERIOR [place] RADIATA. NO HEMORRHAGE, MASS EFFECT OR SHIFT. (5) Arthritis of left wrist Freeman Daily Feb 21, 2020 13:35
[2020-02-21 16:00] VITALS: BP 139/93
[2020-02-21] MEDS ORDERED: Milk of Magnesia 30ml Ud ORAL PRN (17:45)
--- NOTE | 2020-02-21 19:23 | NUR ---
NURSE NOTES: Received pt and report from PETTY Fonseca. Observed pt resting in bed with both eyes open. Pt is A/Ox4. air sampling and monitoring is in placed; pt is NSR. IV site intact, asymptomatic, and patent. Bed is in the lowest position and locked. Call light and bedside table is within reach. Put pt on bedpan. Will remove shortly once pt is done. No signs/symptoms of acute distress noted. Will continue plan of care.
--- NOTE | 2020-02-21 19:25 | NUR ---
NURSE HAND-OFF REPORT: Important Events on Shift:[no remarkable events, no bm, laxative given.] Patient Status: [full code] Diet: [cardiac] Pending Orders: [] Pending Results/Labs:[] Pending MD notification:[] Latest Vital Signs: Temperature 98.7 , Pulse 86 , B/P 139 /93 , Respiratory Rate 19 , O2 SAT 97 , Room Air, O2 Flow Rate . Vital Sign Comment: [] EKG Rhythm: Sinus Rhythm Rhythm change?: N MD Notified?: N - MD Response: Latest Hearn Fall Score: 50 Fall Risk: High Risk Safety Measures: Call light Within Reach, Bed Alarm Zone 2, Side Rails Side Rails x3, Bed position Low and Locked. Fall Precautions: Yellow Socks Yellow Gown Patient Fall Education Report given to [Kalyn RN].
[2020-02-21 20:00] VITALS: BP 155/56
[2020-02-21] MEDS: Cyclobenzaprine 10mg Tab ORAL PRN (21:00)
[2020-02-21] MEDS: Atorvastatin 80mg tab ORAL SCH (21:01)
[2020-02-22] VITALS: BP 144/69
--- NOTE | 2020-02-22 00:55 | Cardiology Progress Note ---
Subjective DATE OF SERVICE: Feb 21, 2020 Still with fluctuating paresis of left side; upper extremity affected predominantly. BP parameters stable. Monitor: sinus with no significant ectopy. Objective Last 24 Hour Vital Signs Date Time Temp Pulse Resp B/P (MAP) Pulse Ox O2 Delivery O2 Flow Rate FiO2 02/22/20 00:00 66 02/21/20 21:00 Room Air 02/21/20 20:00 97.8 79 17 155/56 (89) 97 02/21/20 20:00 83 02/21/20 19:13 98.7 02/21/20 16:00 86 02/21/20 16:00 98.7 69 19 139/93 (108) 97 02/21/20 12:00 79 02/21/20 12:00 97.8 85 21 142/81 (101) 96 02/21/20 09:00 Room Air 02/21/20 08:54 72 137/72 02/21/20 08:53 72 137/72 02/21/20 08:00 84 02/21/20 08:00 98.4 72 21 137/72 (93) 98 02/21/20 05:44 98.0 02/21/20 04:00 98.0 96 19 148/82 (104) 97 02/21/20 04:00 75 ROS: no change from my inital evaluation HEENT: normal ENT inspection RHYTHM: NSR LUNGS: lungs clear bilaterally CARDIAC: normal rate, regular rhythm, normal S1 and S2 ABDOMEN: normal bowel sounds, non tender, soft, no organomegaly EXTREMITIES: No edema, other - left hemiparesis - predomnantly upper extr Laboratory Tests Test 02/21/20 06:47 White Blood Count 6.1 K/UL (4.8-10.8) Red Blood Count 3.59 M/UL (4.20-5.40) L Hemoglobin 11.8 G/DL (12.0-16.0) L Hematocrit 37.1 % (37.0-47.0) Mean Corpuscular Volume 103 FL (80-99) H Mean Corpuscular Hemoglobin 32.9 PG (27.0-31.0) H Mean Corpuscular Hemoglobin Concent 31.9 G/DL (32.0-36.0) L Red Cell Distribution Width 13.5 % (11.6-14.8) Platelet Count 289 K/UL (150-450) Mean Platelet Volume 6.3 FL (6.5-10.1) L Neutrophils (%) (Auto) 62.1 % (45.0-75.0) Lymphocytes (%) (Auto) 27.4 % (20.0-45.0) Monocytes (%) (Auto) 6.1 % (1.0-10.0) Eosinophils (%) (Auto) 2.4 % (0.0-3.0) Basophils (%) (Auto) 2.0 % (0.0-2.0) Sodium Level 140 MMOL/L (136-145) Potassium Level 4.2 MMOL/L (3.5-5.1) Chloride Level 106 MMOL/L (98-107) Carbon Dioxide Level 28 MMOL/L (21-32) Anion Gap 6 mmol/L (5-15) Blood Urea Nitrogen 20 mg/dL (7-18) H Creatinine 1.1 MG/DL (0.55-1.30) Estimat Glomerular Filtration Rate 58.8 mL/min (>60) Glucose Level 141 MG/DL (74-106) H Calcium Level 9.5 MG/DL (8.5-10.1) Phosphorus Level 3.4 MG/DL (2.5-4.9) Magnesium Level 2.1 MG/DL (1.8-2.4) Assessment/Plan Assessment/Plan Subacute CVA with left hemiparesis and dysarthria Hypertensive urgency resolving Hypertension/HHD Hyperlipidemia Anti-platelet therapy Statin drug PT/OT/ST Cautious titration of antiHTN regimen for BP control Continuous cardiac monitoring Darshan Morley MD Feb 22, 2020 00:55
[2020-02-22] MEDS: HYDROcodone/Acetamin 5/325 tab ORAL PRN ×2 (01:03→20:53)
--- NOTE | 2020-02-22 01:50 | NUR ---
NURSE NOTES: Pt complained of chronic back pain /. Administered 1 tablet [place] 5/325 PO Q6H PRN for pain 7-10. Reassessed pt's pain level. Pt verbalized pain /10. Pt is calm, comfortable, and sleeping.
[2020-02-22 04:00] VITALS: BP 156/85
--- NOTE | 2020-02-22 07:44 | NUR ---
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 Pt complained of constipation, but was able to have a BM. Patient Status: Stable Diet: Cardiac diet Pending Orders: N Pending Results/Labs: N Pending MD notification: N Latest Vital Signs: Temperature 96.0 , Pulse 66 , B/P 156 /85 , Respiratory Rate 19 , O2 SAT 99 , Room Air, O2 Flow Rate . EKG Rhythm: Sinus Rhythm Rhythm change?: N Latest Hearn Fall Score: 50 Fall Risk: High Risk Safety Measures: Call light Within Reach, Bed Alarm Zone 2, Side Rails Side Rails x3, Bed position Low and Locked. Fall Precautions: Yellow Socks Yellow Gown Patient Fall Education Report given to PETTY Paulson.
[2020-02-22 08:00] VITALS: BP 142/71
--- NOTE | 2020-02-22 08:05 | NUR ---
NURSE NOTES: Received pt.Pt is A/Ox4, no sign of sob or resp distress. floor person shows pt is in SR. IV site intact, asymptomatic, and patent. Bed is in the lowest position and locked. Call light and bedside table is within reach. No signs/symptoms of acute distress noted. Will continue plan of care.
[2020-02-22 08:37] LABS: BASOPHILS % (AUTO) 1.7 % (0.0-2.0); HEMATOCRIT 39.9 % (37.0-47.0); HEMOGLOBIN 12.9 G/DL (12.0-16.0); LYMPHOCYTES % (AUTO) 18.1 % (20.0-45.0); MEAN CORPUSCULAR VOLUME 103 FL (80-99); MONOCYTES % (AUTO) 6.4 % (1.0-10.0); NEUTROPHILS % (AUTO) 71.7 % (45.0-75.0); PLATELET COUNT 327 K/UL (150-450); RED BLOOD COUNT 3.86 M/UL (4.20-5.40); RED CELL DISTRIBUTION WIDTH 13.4 % (11.6-14.8); WHITE BLOOD COUNT 7.2 K/UL (4.8-10.8)
[2020-02-22] MEDS: Aspirin Baby 81mg ORAL SCH (08:43)
[2020-02-22] MEDS: Meclizine 25mg tab ORAL SCH ×3 (08:43→16:49)
[2020-02-22] MEDS: Metoprolol Succinate XL 25mg tab ORAL SCH (08:43)
--- NOTE | 2020-02-22 10:35 | NUR ---
*-*DISCHARGED PLANNING*-* PATIENT HAS BEEN REFERRED TO: [facility] P: [phone]
--- NOTE | 2020-02-22 11:48 | NUR ---
*-*DISCHARGED PLANNING*-* PATIENT HAS BEEN REFERRED TO: [facility] DAMICO P: [phone] S/W RUBY, ONLY DIALYSIS MALE BED AVAILABLE.
--- NOTE | 2020-02-22 11:50 | NUR ---
*-*DISCHARGED PLANNING*-* PATIENT HAS BEEN REFERRED TO: [facility] RONQUILL[facility] P: [phone] S/W RICHARD, NEED COVID RESULT. ~~~~~~~~~~~~~~~~~~~~~~PENDING COVID RESULTS~~~~~~~~~~
[2020-02-22 12:00] VITALS: BP 135/77
--- NOTE | 2020-02-22 15:16 | NUR ---
*-*DISCHARGED PLANNING*-* PATIENT HAS BEEN REFERRED TO: [facility] RONQUILL[facility] P: [phone] S/W RICHARD, NEED COVID RESULT. NUCLEAR PHYSICS PROFESSOR NOTIFIED NURSE MACHINE FILLER SHREDDER ~~~~~~~~~~~~~~~~~~~~~~PENDING COVID RESULTS~~~~~~~~~~
--- NOTE | 2020-02-22 15:37 | NUR ---
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
[2020-02-22 15:53] VITALS: BP 129/70
--- NOTE | 2020-02-22 17:26 | Internal Med Progress Note ---
Subjective Physician Name Darryl Claudio Attending Physician Darryl Claudio M.D. Current Medications Medications (Trade) Dose Ordered Sig/Yenny Route PRN Reason Start Time Stop Time Status Last Admin Dose Admin Acetaminophen (Tylenol) 650 mg Q6H PRN ORAL pain 1-3 02/18/20 01:15 03/19/20 01:14 Acetaminophen (Tylenol) 650 mg Q6H PRN ORAL temp of 100.5 or greater 02/18/20 01:15 03/19/20 01:14 Acetaminophen/ Hydrocodone Bitart ([place] 5/325) 1 tab Q6H PRN ORAL pain 7-10 02/18/20 02:00 02/25/20 01:59 02/22/20 01:03 Amlodipine Besylate (Norvasc) 10 mg DAILY ORAL 02/22/20 09:00 03/20/20 08:59 02/22/20 08:44 Aspirin (ASA) 81 mg DAILY ORAL 02/18/20 09:00 04/03/20 08:59 02/22/20 08:43 Atorvastatin Calcium (Lipitor) 80 mg BEDTIME ORAL 02/18/20 21:00 05/18/20 20:59 02/21/20 21:01 Barium Sulfate (Varibar Honey) 250 ml NOW PRN MC RAD 02/21/20 10:30 02/24/20 10:17 Barium Sulfate (Varibar Cougar) 240 ml NOW PRN MC RAD 02/21/20 10:30 02/24/20 10:17 Barium Sulfate (Varibar Pudding) 230 ml NOW PRN MC RAD 02/21/20 10:30 02/24/20 10:17 Barium Sulfate (Varibar Thin Liquid powder) 148 gm NOW PRN MC RAD 02/21/20 10:30 02/24/20 10:17 Bupropion HCl (Wellbutrin) 300 mg DAILY ORAL 02/18/20 09:00 03/19/20 08:59 02/22/20 08:44 Cyclobenzaprine HCl (Flexeril) 10 mg TIDPRN PRN ORAL Muscle Spasm 02/18/20 18:45 02/25/20 18:44 02/21/20 21:00 Hydralazine HCl (Apresoline) 10 mg Q4H PRN IV SBP > 160 02/18/20 01:15 05/18/20 01:14 02/18/20 17:17 Indomethacin (Indocin) 25 mg DAILYPRN PRN ORAL moderate pain 02/18/20 13:45 03/19/20 01:44 Magnesium Hydroxide (Mom) 30 ml DAILYPRN PRN ORAL Constipation 02/21/20 17:45 03/22/20 17:44 02/21/20 18:31 Meclizine HCl (Antivert) 25 mg THREE TIMES A DAY ORAL 02/18/20 09:00 03/19/20 08:59 02/22/20 08:43 Metoprolol Succinate (Toprol XL) 25 mg DAILY ORAL 02/21/20 09:00 05/21/20 08:59 02/22/20 08:43 Ondansetron HCl (Zofran) 4 mg Q4H PRN IVP Nausea & Vomiting 02/18/20 20:00 03/19/20 19:59 02/22/20 04:55 Quetiapine Fumarate (SEROqueL) 150 mg BEDTIME ORAL 02/18/20 21:00 04/03/20 20:59 02/21/20 21:00 Tramadol HCl (Ultram) 50 mg Q6H PRN ORAL Moderate Pain (Pain Scale 4-6) 02/18/20 01:45 02/25/20 01:44 02/20/20 17:25 Allergies: Coded Allergies: No Known Allergies (Unverified , 06/26/15) Subjective left sided weakness fluctuating brain MRI shows acute lacunar stroke Objective Last Vital Signs Date Time Temp Pulse Resp B/P (MAP) Pulse Ox O2 Delivery O2 Flow Rate FiO2 02/22/20 16:00 74 02/22/20 15:53 97.9 18 129/70 (89) 98 02/22/20 09:00 Room Air Laboratory Tests Test 02/22/20 07:33 White Blood Count 7.2 K/UL (4.8-10.8) Red Blood Count 3.86 M/UL (4.20-5.40) L Hemoglobin 12.9 G/DL (12.0-16.0) Hematocrit 39.9 % (37.0-47.0) Mean Corpuscular Volume 103 FL (80-99) H Mean Corpuscular Hemoglobin 33.4 PG (27.0-31.0) H Mean Corpuscular Hemoglobin Concent 32.3 G/DL (32.0-36.0) Red Cell Distribution Width 13.4 % (11.6-14.8) Platelet Count 327 K/UL (150-450) Mean Platelet Volume 6.3 FL (6.5-10.1) L Neutrophils (%) (Auto) 71.7 % (45.0-75.0) Lymphocytes (%) (Auto) 18.1 % (20.0-45.0) L Monocytes (%) (Auto) 6.4 % (1.0-10.0) Eosinophils (%) (Auto) 2.0 % (0.0-3.0) Basophils (%) (Auto) 1.7 % (0.0-2.0) Intake and Output 02/21/20 02/22/20 19:00 07:00 Intake Total 140 ml 360 ml Output Total 1200 ml Balance -1060 ml 360 ml Intake Oral 140 ml Other 360 ml Output Urine Total 1200 ml # Voids 3 3 # Bowel Movements 3 Objective General appearance: alert, cooperative, no distress, appears stated age Head: Normocephalic, without obvious abnormality, atraumatic Eyes: conjunctivae/corneas clear. PERRL, EOM's intact. Fundi benign Throat: Lips, mucosa, and tongue normal. Teeth and gums normal Neck: supple, symmetrical, trachea midline, no adenopathy, thyroid: not enlarged, symmetric, no tenderness/mass/nodules, no carotid bruit and no JVD Lungs: clear to auscultation bilaterally Heart: regular rate and rhythm, S1, S2 normal, no murmur, click, rub or gallop Abdomen: soft, non-tender. Bowel sounds normal. No masses, no organomegaly Extremities: extremities normal, atraumatic, no cyanosis or edema Pulses: 2+ and symmetric Skin: Skin color, texture, turgor normal. No rashes or lesions Neurologic: Left sided weakness Assessment/Plan Assessment/Plan #CVA #Left sided weakness #HTN #lightheadedness #elevated - tele - neuro eval - brain MRI- lacunar stoke - 2d echo - carotid US no sig stenosis - cardiology eval - asa 81 - lipitror 80 - monitor BP - monitor Darryl King M.D. Feb 22, 2020 17:26
--- NOTE | 2020-02-22 18:52 | Surgery Progress Note ---
Surgery Progress Note Subjective Symptoms: improved Additional Comments no acute events ready for d/c pending covid result no n/v Objective Last 24 Hour Vital Signs Date Time Temp Pulse Resp B/P (MAP) Pulse Ox O2 Delivery O2 Flow Rate FiO2 02/22/20 16:00 74 02/22/20 15:53 97.9 72 18 129/70 (89) 98 02/22/20 12:00 69 02/22/20 12:00 97.5 72 18 135/77 (96) 97 02/22/20 09:00 Room Air 02/22/20 08:44 72 142/71 02/22/20 08:43 72 142/71 02/22/20 08:00 98.1 72 18 142/71 (94) 97 02/22/20 08:00 73 02/22/20 04:00 66 02/22/20 04:00 96.0 73 19 156/85 (108) 99 02/22/20 00:00 97.5 73 17 144/69 (94) 96 02/22/20 00:00 66 02/21/20 21:00 Room Air 02/21/20 20:00 97.8 79 17 155/56 (89) 97 02/21/20 20:00 83 02/21/20 19:13 98.7 I&O Intake and Output 02/21/20 02/22/20 19:00 07:00 Intake Total 140 ml 360 ml Output Total 1200 ml Balance -1060 ml 360 ml Intake Oral 140 ml Other 360 ml Output Urine Total 1200 ml # Voids 3 3 # Bowel Movements 3 Cardiovascular: RSR Respiratory: clear Abdomen: soft, non-tender, present bowel sounds, non-distended Extremities: no edema, no tenderness, no cyanosis Laboratory Tests Test 02/22/20 07:33 White Blood Count 7.2 K/UL (4.8-10.8) Red Blood Count 3.86 M/UL (4.20-5.40) L Hemoglobin 12.9 G/DL (12.0-16.0) Hematocrit 39.9 % (37.0-47.0) Mean Corpuscular Volume 103 FL (80-99) H Mean Corpuscular Hemoglobin 33.4 PG (27.0-31.0) H Mean Corpuscular Hemoglobin Concent 32.3 G/DL (32.0-36.0) Red Cell Distribution Width 13.4 % (11.6-14.8) Platelet Count 327 K/UL (150-450) Mean Platelet Volume 6.3 FL (6.5-10.1) L Neutrophils (%) (Auto) 71.7 % (45.0-75.0) Lymphocytes (%) (Auto) 18.1 % (20.0-45.0) L Monocytes (%) (Auto) 6.4 % (1.0-10.0) Eosinophils (%) (Auto) 2.0 % (0.0-3.0) Basophils (%) (Auto) 1.7 % (0.0-2.0) Plan Problems: (1) Fall Assessment & Plan: unknown LOC no acute trauma noted no significant hematoma or bruising mass head stable chronic neuro input noted appreciate eval pt/ot cardio input thank you Right: CCA= 100 cm/sec ICA = 63 cm/sec ECA = 79 cm/sec Left: CCA = 87 cm/sec ICA= 69 cm/sec ECA = 71 cm/sec ICA/CCA ratio are 0.6 on the right and 0.8 on the left. Antegrade flow is identified in the vertebral arteries bilaterally. IMPRESSION: NO HEMODYNAMICALLY SIGNIFICANT STENOSIS. (2) Mass of head Assessment & Plan: Brain: Mild generalized brain atrophy. Decreased attenuation within the deep white matter compatible with microangiopathic white matter disease. No hemorrhage. Ventricles: Unremarkable. No ventriculomegaly. Bones/joints: Unremarkable. No acute fracture. Soft tissues: Fatty lesion involving the scalp at the level of the left frontal bone suggestive of a small lipoma. This measures 2.6 x 0.3 cm. Sinuses: Unremarkable as visualized. No acute sinusitis. Mastoid air cells: Unremarkable as visualized. No mastoid effusion. IMPRESSION: Chronic changes as described. No acute intracranial hemorrhage or space-occupying lesion. lipoma benign not suggestive of fall okay for outpatient eval / removal as desired (3) Weakness (4) Syncope Assessment & Plan: Diffuse age-related senescent changes noted with ventricular sulcal prominence as well as moderate white matter micro and hepatic changes. There is a small acute infarct in the posterior right austin radiata adjacent to the right lateral ventricle. No evidence of hemorrhage, mass effect or shift. Ventricles and cisterns appear unremarkable. Brainstem and posterior fossa appear unremarkable. The sella and parasellar regions are normal. Normal flow voids identified in the carotid siphons. Sinuses, mastoid air cells and bony calvarium are intact. There is an incidental small scalp lipoma left frontal region. IMPRESSION: SMALL ACUTE WHITE MATTER INFARCT RIGHT POSTERIOR [place] RADIATA. NO HEMORRHAGE, MASS EFFECT OR SHIFT. (5) Arthritis of left wrist Freeman Daily Feb 22, 2020 18:52
--- NOTE | 2020-02-22 19:10 | NUR ---
NURSE NOTES: Received patient from PETTY Arita. AOx3, able to verbalize needs. IV on LAC#20, saline lock. No complaints of pain at this time. Still with pending CT of Head wo contrast. On room air, saturating well. Bed in lowest position, brakes engaged, bed alarms on. Call light placed within reach. Will continue to monitor.
--- NOTE | 2020-02-22 19:25 | NUR ---
Speech Pathology Note (Bedside Dysphagia and Speech and language Evaluation) Post stroke days: 5 DCP: Acute Rehabilitation pending Brief Note: Ms. Teran is a 74 year Uzbek speaking right hand dominant female admitted from home on 02/17/2020 for acute onset of dizziness and fall on 02/17/2020 consist with left side weakness. On the arrival to ED, the case was outside of window for tPA, no indication of mechanical thrombectomy and subsequently admitted [facility]. The MRI brain findings were small acute WM infarct in right posterior austin radiata on top of old infarct. Pt was seen by PT today recommending to ARU for disposition. She is tolerating on solid diet chopped. Findings: Oriented x4 Memory: Intact Cognitive insights: Intact Executive function: Intact Follow commands: Intact Speech is dysarthric c.w left side facial weakness Dysphagia is oral phase dysphagia with reduced bolus control without s.s of aspiration. Assessment: 1. Oral dysphagia with left side facial sensory and motor deficits 2. Dysarthria with left side facial weakness Plan: 1. Mechanical soft diet and thin liquid -Dysphagia therapy for compensatory strategies at [facility] -Diet advance at [facility] 2. Speech tx at [facility] Frank Fernandez
--- NOTE | 2020-02-22 19:56 | NUR ---
NURSE NOTES: Patient left for CT Head wo contrast.
[2020-02-22 20:00] VITALS: BP 138/75
--- NOTE | 2020-02-22 20:20 | Diagnostic Imaging Report ---
EXAM: CT Head Without Intravenous Contrast CLINICAL HISTORY: WEAK TECHNIQUE: Axial computed tomography images of the head/brain without intravenous contrast. CTDI is 53.4 mGy and DLP is 1152.4 mGy-cm. One or more of the following dose reduction techniques were used: automated exposure control, adjustment of the mA and/or kV according to patient size, use of iterative reconstruction technique. COMPARISON: 02/17/2020. FINDINGS: Brain: There is a new 1.8 x 1.2 cm hypodensity within the region of the right basal ganglia. This finding may represent an acute/subacute area of infarction. No abnormal extra-axial collection. A 2.8 x 0.8 cm left frontal scalp lipoma is noted. No hemorrhage. Ventricles: There is prominence of the ventricular system, cortical sulci, basilar cisterns, compatible with age related atrophy. Bones/joints: Visualized sinuses and the calvarium were unremarkable. No acute fracture. Soft tissues: See above. Sinuses: Unremarkable as visualized. No acute sinusitis. Mastoid air cells: Mastoid air cells are well pneumatized. IMPRESSION: 1. New since the previous study of 02/17/2020, there is a 1.8 x 1.2 cm hypodensity in the region of the right basal ganglia which may represent acute/subacute infarction in the basal ganglia. 2. Magnetic resonance imaging of the brain with diffusion-weighted sequences is highly advised for further assessment. <MYCVCSECTION> Communications: 02/22/20 20:31 Call Doctor Regarding Above results, called PETTY Barrett on 02/21 20:31 (-08:00)
--- NOTE | 2020-02-22 20:36 | NUR ---
NURSE NOTES: Patient back on the floor from procedure. Spoke with radiologist from stat [facility]; hypodensity region in the right basal ganglia may represent acute/subacute infarction. Recommends an MRI. Informed Dr. Claudio; Left a message with Dr. Hale. Awaiting call back.
[2020-02-22] MEDS: Cyclobenzaprine 10mg Tab ORAL PRN (20:54)
[2020-02-22] MEDS: Atorvastatin 80mg tab ORAL SCH (20:54)
--- NOTE | 2020-02-22 21:36 | Cardiology Progress Note ---
Subjective DATE OF SERVICE: Feb 22, 2020 CT head today shows new right BG infarct. Still with fluctuating paresis of left side; upper extremity affected predominantly. BP parameters stable. Monitor: reviewed with creative technologist - no atrial arrhythmias - sinus rhythm only Objective Last 24 Hour Vital Signs Date Time Temp Pulse Resp B/P (MAP) Pulse Ox O2 Delivery O2 Flow Rate FiO2 02/22/20 21:23 97.9 02/22/20 16:00 74 02/22/20 15:53 97.9 72 18 129/70 (89) 98 02/22/20 12:00 69 02/22/20 12:00 97.5 72 18 135/77 (96) 97 02/22/20 09:00 Room Air 02/22/20 08:44 72 142/71 02/22/20 08:43 72 142/71 02/22/20 08:00 98.1 72 18 142/71 (94) 97 02/22/20 08:00 73 02/22/20 04:00 66 02/22/20 04:00 96.0 73 19 156/85 (108) 99 02/22/20 00:00 97.5 73 17 144/69 (94) 96 02/22/20 00:00 66 ROS: no change from my inital evaluation HEENT: normal ENT inspection RHYTHM: NSR LUNGS: lungs clear bilaterally CARDIAC: normal rate, regular rhythm, normal S1 and S2 ABDOMEN: normal bowel sounds, non tender, soft, no organomegaly EXTREMITIES: No edema, other - left hemiparesis - predomnantly upper extr Laboratory Tests Test 02/22/20 07:33 White Blood Count 7.2 K/UL (4.8-10.8) Red Blood Count 3.86 M/UL (4.20-5.40) L Hemoglobin 12.9 G/DL (12.0-16.0) Hematocrit 39.9 % (37.0-47.0) Mean Corpuscular Volume 103 FL (80-99) H Mean Corpuscular Hemoglobin 33.4 PG (27.0-31.0) H Mean Corpuscular Hemoglobin Concent 32.3 G/DL (32.0-36.0) Red Cell Distribution Width 13.4 % (11.6-14.8) Platelet Count 327 K/UL (150-450) Mean Platelet Volume 6.3 FL (6.5-10.1) L Neutrophils (%) (Auto) 71.7 % (45.0-75.0) Lymphocytes (%) (Auto) 18.1 % (20.0-45.0) L Monocytes (%) (Auto) 6.4 % (1.0-10.0) Eosinophils (%) (Auto) 2.0 % (0.0-3.0) Basophils (%) (Auto) 1.7 % (0.0-2.0) Assessment/Plan Assessment/Plan 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 Hypertensive urgency resolving Hypertension/HHD Hyperlipidemia Anti-platelet therapy Statin drug PT/OT/ST Cautious titration of antiHTN regimen for BP control Continuous cardiac monitoring MRI scan ? cerebral angio? Darshan Morley MD Feb 22, 2020 21:36
--- NOTE | 2020-02-22 22:25 | NUR ---
NURSE NOTES: Initiated Neurological assesment for patient; Patient AAOx4, verbally coherent. Will continue to monitor.
[2020-02-23] VITALS: BP 138/72
[2020-02-23 04:00] VITALS: BP 138/74
[2020-02-23] MEDS: HYDROcodone/Acetamin 5/325 tab ORAL PRN ×2 (06:15→21:08)
[2020-02-23 07:15] LABS: BASOPHILS % (AUTO) 1.6 % (0.0-2.0); EOSINOPHILS % (AUTO) 3.1 % (0.0-3.0); HEMATOCRIT 41.2 % (37.0-47.0); LYMPHOCYTES % (AUTO) 16.3 % (20.0-45.0); MEAN CORPUSCULAR VOLUME 105 FL (80-99); MONOCYTES % (AUTO) 11.5 % (1.0-10.0); NEUTROPHILS % (AUTO) 67.6 % (45.0-75.0); PLATELET COUNT 313 K/UL (150-450); RED BLOOD COUNT 3.91 M/UL (4.20-5.40); RED CELL DISTRIBUTION WIDTH 13.6 % (11.6-14.8); WHITE BLOOD COUNT 5.3 K/UL (4.8-10.8)
--- NOTE | 2020-02-23 07:36 | NUR ---
NURSE HAND-OFF REPORT: Important Events on Shift:[CT Head wo contrast result endorsed. Pt requesting for for hemorrhoids cream] Patient Status: [Full code] Diet: [cardiac] Pending Orders: [] Pending Results/Labs:[] Pending MD notification:[] Latest Vital Signs: Temperature 97.7 , Pulse 77 , B/P 138 /74 , Respiratory Rate 20 , O2 SAT 96 , Room Air, O2 Flow Rate . Vital Sign Comment: [] EKG Rhythm: Sinus Rhythm Rhythm change?: N MD Notified?: N - MD Response: Latest Hearn Fall Score: 50 Fall Risk: High Risk Safety Measures: Call light Within Reach, Bed Alarm Zone 2, Side Rails Side Rails x3, Bed position Low and Locked. Fall Precautions: Yellow Socks Yellow Gown Patient Fall Education Report given to [PETTY Solo].
[2020-02-23 08:00] VITALS: BP 145/83
--- NOTE | 2020-02-23 08:15 | NUR ---
NURSE NOTES: Received patient from PETTY Barrett. Patient is AO x4 awake and able to make needs known. Patient shows no signs of distress or pain at the time. IV is patent and flushed. There are no signs of erythema, infiltration, or bleeding. Patient still has left sided weakness. Patient is on room air with no signs of respiratory distress. Bed is in the lowest position, call light is within reach, side rails up x3. Will continue to monitor.
[2020-02-23] MEDS: Meclizine 25mg tab ORAL SCH ×3 (09:38→17:31)
[2020-02-23] MEDS: Aspirin Baby 81mg ORAL SCH (09:39)
[2020-02-23] MEDS: Metoprolol Succinate XL 25mg tab ORAL SCH (09:39)
--- NOTE | 2020-02-23 09:39 | Cardiology Progress Note ---
Subjective DATE OF SERVICE: Feb 23, 2020 CT head yesterday showed new right BG infarct. Still with fluctuating paresis of left side; upper extremity affected predominantly. BP parameters stable. Monitor: reviewed with court monitor - no atrial arrhythmias - sinus rhythm only Objective Last 24 Hour Vital Signs Date Time Temp Pulse Resp B/P (MAP) Pulse Ox O2 Delivery O2 Flow Rate FiO2 02/23/20 08:00 97.7 86 20 145/83 (103) 95 02/23/20 06:45 97.7 02/23/20 04:00 97.7 77 20 138/74 (95) 96 02/23/20 03:35 71 02/23/20 00:00 64 02/23/20 00:00 97.7 70 20 138/72 (94) 97 02/22/20 21:23 97.9 02/22/20 21:00 Room Air 02/22/20 20:00 98.1 78 20 138/75 (96) 99 02/22/20 20:00 80 02/22/20 16:00 74 02/22/20 15:53 97.9 72 18 129/70 (89) 98 02/22/20 12:00 69 02/22/20 12:00 97.5 72 18 135/77 (96) 97 ROS: no change from my inital evaluation HEENT: normal ENT inspection RHYTHM: NSR LUNGS: lungs clear bilaterally CARDIAC: normal rate, regular rhythm, normal S1 and S2 ABDOMEN: normal bowel sounds, non tender, soft, no organomegaly EXTREMITIES: No edema, other - left hemiparesis - predomnantly upper extr Laboratory Tests Test 02/23/20 05:59 White Blood Count 5.3 K/UL (4.8-10.8) Red Blood Count 3.91 M/UL (4.20-5.40) L Hemoglobin 13.0 G/DL (12.0-16.0) Hematocrit 41.2 % (37.0-47.0) Mean Corpuscular Volume 105 FL (80-99) H Mean Corpuscular Hemoglobin 33.3 PG (27.0-31.0) H Mean Corpuscular Hemoglobin Concent 31.6 G/DL (32.0-36.0) L Red Cell Distribution Width 13.6 % (11.6-14.8) Platelet Count 313 K/UL (150-450) Mean Platelet Volume 6.7 FL (6.5-10.1) Neutrophils (%) (Auto) 67.6 % (45.0-75.0) Lymphocytes (%) (Auto) 16.3 % (20.0-45.0) L Monocytes (%) (Auto) 11.5 % (1.0-10.0) H Eosinophils (%) (Auto) 3.1 % (0.0-3.0) H Basophils (%) (Auto) 1.6 % (0.0-2.0) Assessment/Plan Assessment/Plan 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 Hypertensive urgency resolving Hypertension/HHD Hyperlipidemia Anti-platelet therapy Statin drug PT/OT/ST Cautious titration of antiHTN regimen for BP control Continuous cardiac monitoring MRI scan ? cerebral angio? Consider Darshan Watts MD Feb 23, 2020 09:39
[2020-02-23 12:00] VITALS: BP 138/85
--- NOTE | 2020-02-23 12:00 | NUR ---
NURSE NOTES: Dr. Claudio ordered MRI of the Brain w/o contrast for today. Order placed.
--- NOTE | 2020-02-23 12:24 | Internal Med Progress Note ---
Subjective Physician Name Darryl Claudio Attending Physician Darryl Claudio M.D. Current Medications Medications (Trade) Dose Ordered Sig/Yenny Route PRN Reason Start Time Stop Time Status Last Admin Dose Admin Acetaminophen (Tylenol) 650 mg Q6H PRN ORAL pain 1-3 02/18/20 01:15 03/19/20 01:14 Acetaminophen (Tylenol) 650 mg Q6H PRN ORAL temp of 100.5 or greater 02/18/20 01:15 03/19/20 01:14 Acetaminophen/ Hydrocodone Bitart ([place] 5/325) 1 tab Q6H PRN ORAL pain 7-10 02/18/20 02:00 02/25/20 01:59 02/23/20 06:15 Amlodipine Besylate (Norvasc) 10 mg DAILY ORAL 02/22/20 09:00 03/20/20 08:59 02/23/20 09:39 Aspirin (ASA) 81 mg DAILY ORAL 02/18/20 09:00 04/03/20 08:59 02/23/20 09:39 Atorvastatin Calcium (Lipitor) 80 mg BEDTIME ORAL 02/18/20 21:00 05/18/20 20:59 02/22/20 20:54 Barium Sulfate (Varibar Honey) 250 ml NOW PRN MC RAD 02/21/20 10:30 02/24/20 10:17 Barium Sulfate (Varibar [place]) 240 ml NOW PRN MC RAD 02/21/20 10:30 02/24/20 10:17 Barium Sulfate (Varibar Pudding) 230 ml NOW PRN MC RAD 02/21/20 10:30 02/24/20 10:17 Barium Sulfate (Varibar Thin Liquid powder) 148 gm NOW PRN MC RAD 02/21/20 10:30 02/24/20 10:17 Bupropion HCl (Wellbutrin) 300 mg DAILY ORAL 02/18/20 09:00 03/19/20 08:59 02/23/20 09:38 Cyclobenzaprine HCl (Flexeril) 10 mg TIDPRN PRN ORAL Muscle Spasm 02/18/20 18:45 02/25/20 18:44 02/22/20 20:54 Hydralazine HCl (Apresoline) 10 mg Q4H PRN IV SBP > 160 02/18/20 01:15 05/18/20 01:14 02/18/20 17:17 Indomethacin (Indocin) 25 mg DAILYPRN PRN ORAL moderate pain 02/18/20 13:45 03/19/20 01:44 Magnesium Hydroxide (Mom) 30 ml DAILYPRN PRN ORAL Constipation 02/21/20 17:45 03/22/20 17:44 02/21/20 18:31 Meclizine HCl (Antivert) 25 mg THREE TIMES A DAY ORAL 02/18/20 09:00 03/19/20 08:59 02/23/20 09:38 Metoprolol Succinate (Toprol XL) 25 mg DAILY ORAL 02/21/20 09:00 05/21/20 08:59 02/23/20 09:39 Ondansetron HCl (Zofran) 4 mg Q4H PRN IVP Nausea & Vomiting 02/18/20 20:00 03/19/20 19:59 02/22/20 04:55 Quetiapine Fumarate (SEROqueL) 150 mg BEDTIME ORAL 02/18/20 21:00 04/03/20 20:59 02/22/20 20:54 Tramadol HCl (Ultram) 50 mg Q6H PRN ORAL Moderate Pain (Pain Scale 4-6) 02/18/20 01:45 02/25/20 01:44 02/20/20 17:25 Allergies: Coded Allergies: No Known Allergies (Unverified , 06/26/15) Subjective left sided weakness fluctuating brain MRI repeated Impression: Previously demonstrated area of diffusion restriction in the right austin radiata has increased slightly in size. As this appeared to be hyperacute previously, suspect that this represents interval evolution to subacute stage. However, given the larger size the possibility of interim extension of the infarct should also be considered. No new infarct. No acute intracranial bleed or mass effect. Objective Last Vital Signs Date Time Temp Pulse Resp B/P (MAP) Pulse Ox O2 Delivery O2 Flow Rate FiO2 02/23/20 12:00 97.5 81 20 138/85 (102) 95 02/23/20 09:00 Room Air Laboratory Tests Test 02/23/20 05:59 White Blood Count 5.3 K/UL (4.8-10.8) Red Blood Count 3.91 M/UL (4.20-5.40) L Hemoglobin 13.0 G/DL (12.0-16.0) Hematocrit 41.2 % (37.0-47.0) Mean Corpuscular Volume 105 FL (80-99) H Mean Corpuscular Hemoglobin 33.3 PG (27.0-31.0) H Mean Corpuscular Hemoglobin Concent 31.6 G/DL (32.0-36.0) L Red Cell Distribution Width 13.6 % (11.6-14.8) Platelet Count 313 K/UL (150-450) Mean Platelet Volume 6.7 FL (6.5-10.1) Neutrophils (%) (Auto) 67.6 % (45.0-75.0) Lymphocytes (%) (Auto) 16.3 % (20.0-45.0) L Monocytes (%) (Auto) 11.5 % (1.0-10.0) H Eosinophils (%) (Auto) 3.1 % (0.0-3.0) H Basophils (%) (Auto) 1.6 % (0.0-2.0) Intake and Output 02/22/20 02/23/20 19:00 07:00 Intake Total 390 ml 120 ml Output Total 400 ml 100 ml Balance -10 ml 20 ml Intake Oral 390 ml 120 ml Output Urine Total 400 ml 100 ml Objective General appearance: alert, cooperative, no distress, appears stated age Head: Normocephalic, without obvious abnormality, atraumatic Eyes: conjunctivae/corneas clear. PERRL, EOM's intact. Fundi benign Throat: Lips, mucosa, and tongue normal. Teeth and gums normal Neck: supple, symmetrical, trachea midline, no adenopathy, thyroid: not enlarged, symmetric, no tenderness/mass/nodules, no carotid bruit and no JVD Lungs: clear to auscultation bilaterally Heart: regular rate and rhythm, S1, S2 normal, no murmur, click, rub or gallop Abdomen: soft, non-tender. Bowel sounds normal. No masses, no organomegaly Extremities: extremities normal, atraumatic, no cyanosis or edema Pulses: 2+ and symmetric Skin: Skin color, texture, turgor normal. No rashes or lesions Neurologic: Left sided weakness Assessment/Plan Assessment/Plan #CVA #Left sided weakness #HTN #lightheadedness #elevated - tele - neuro eval - brain MRI- [place] - 2d echo - carotid US no sig stenosis - cardiology eval - asa 81 - lipitror 80 - monitor BP - monitor Darryl King M.D. Feb 23, 2020 12:24
[2020-02-23 13:30] LABS: CALCIUM 9.5 MG/DL (8.5-10.1); CREATININE 1.2 MG/DL (0.55-1.30); POTASSIUM 4.7 MMOL/L (3.5-5.1)
[2020-02-23] MEDS ORDERED: Miralax 17gm pkt ORAL PRN (13:30)
--- NOTE | 2020-02-23 13:39 | Neurology Progress Note ---
Interim History Interim History ROS Limited/Unobtainable: No Events: covering Dr. Hale, ct head done Objective Physical Exam Last Vital Signs Date Time Temp Pulse Resp B/P (MAP) Pulse Ox O2 Delivery O2 Flow Rate FiO2 02/23/20 12:00 97.5 81 20 138/85 (102) 95 02/23/20 09:00 Room Air Laboratory Tests Test 02/23/20 05:59 White Blood Count 5.3 K/UL (4.8-10.8) Red Blood Count 3.91 M/UL (4.20-5.40) L Hemoglobin 13.0 G/DL (12.0-16.0) Hematocrit 41.2 % (37.0-47.0) Mean Corpuscular Volume 105 FL (80-99) H Mean Corpuscular Hemoglobin 33.3 PG (27.0-31.0) H Mean Corpuscular Hemoglobin Concent 31.6 G/DL (32.0-36.0) L Red Cell Distribution Width 13.6 % (11.6-14.8) Platelet Count 313 K/UL (150-450) Mean Platelet Volume 6.7 FL (6.5-10.1) Neutrophils (%) (Auto) 67.6 % (45.0-75.0) Lymphocytes (%) (Auto) 16.3 % (20.0-45.0) L Monocytes (%) (Auto) 11.5 % (1.0-10.0) H Eosinophils (%) (Auto) 3.1 % (0.0-3.0) H Basophils (%) (Auto) 1.6 % (0.0-2.0) Neurologic Exam Mental Status: awake, alert Speech: normal speech Language: normal language Cranial Nerve II: fundus normal Cranial Nerves III, IV, : PERRLA Cranial Nerve V: normal facial sensations Objective Mental Status: awake, alert Speech: normal speech Language: normal language Cranial Nerve II: fundus normal Cranial Nerves III, IV, : PERRLA Cranial Nerve V: normal facial sensations Objective nc at ab normal RRR left hemiparesis, arm 2/5, face 4/5, leg 3/5 Impression/Recommendations Diagnostic Impression Assessment and Rec's: 1. Likely acute ischemic stroke, OOW for TPA --> left hemiparesis, fluctuating --> MRI Brain revealed Small acute white matter infarct right posterior austin radiata. NO HEMORRHAGE, MASS EFFECT OR SHIFT. --> ST evaluation complete on mechanical soft diet --> New Head CT findings reviewed. 2. Syncope --> continue monitoring on Tele --> BP goal < 160/95 --> 2D Echo reviewed Normal LVEF 60% --> carotid us no significant stenosis --> continue asa 81mg po daily --> continue statin lipitor 80mg po daily 3. Arthritis Left Wrist 4. Weakness --> continue PT/OT, will benefir for Sandra Mallory NP Feb 23, 2020 13:39
--- NOTE | 2020-02-23 14:45 | Cardiology Report ---
APPROVED REPORT EXAM: Two-dimensional and M-mode echocardiogram with Doppler and color Doppler. INDICATION Hypertension M-Mode DIMENSIONS IVSd1.0 (0.7-1.1cm)Left Atrium (MM)3.3 (1.6-4.0cm) LVDd4.5 (3.5-5.6cm)Aortic Root3.4 (2.0-3.7cm) PWd1.3 (0.7-1.1cm)Aortic Cusp Exc.1.8 (1.5-2.0cm) IVSs1.2 cmEPSS0.7 (>1.0cm) LVDs3.3 (2.5-4.0cm) PWs1.9 cm <Conclusion> Normal left ventricular chamber size, systolic function and wall motion. Left ventricular ejection fraction estimated to be 60 %. Mild left ventricular hypertrophy. No evidence of pericardial effusion. All other cardiac chamber sizes are within normal limits. Focal aortic valve sclerosis with adequate cusp excursion. Thickened mitral valve leaflets with normal excursion. Mitral annulus and aortic root calcification. Pulmonic valve not well visualized. Normal tricuspid valve structure. IVC is normal in size with physiological collapse. A color flow and spectral Doppler study was performed and revealed: No aortic regurgitation. No mitral regurgitation. Mitral diastolic velocities suggest mild left ventricular diastolic dysfunction (Grade I). Trace tricuspid regurgitation. Tricuspid systolic velocities suggests peak right ventricular systolic pressure of 32 mmHg. Trace pulmonic regurgitation present.
--- NOTE | 2020-02-23 15:43 | Diagnostic Imaging Report ---
Indication: Left-sided extremity weakness Technique: sagittal T1 fast spin echo, axial T1 FLAIR, axial T2 FLAIR, axial T2 FS PROPELLER, axial T2* GRE, axial diffusion weighted images. ADC and exponential ADC maps generated Comparison: 02/18/2020 Findings: There is an area of restricted effusion in the right austin radiata. The area of diffusion restriction measures slightly larger than on the prior exam, measuring 18 mm long axis dimension, previously 15 mm. There is now T2 signal abnormality in the same area which was not evident previously. No new areas of diffusion signal abnormality are demonstrated. No acute hemorrhage or edema. No mass effect nor midline shift. There is mild age-related enlargement of the ventricles and extra-axial CSF spaces. There is considerable periventricular deep white matter high T2 signal, consistent with chronic microvascular ischemic change.. There is evidence of prior bilateral cataract surgery. The vascular flow voids are preserved. There is a left frontal scalp lipoma again demonstrated. Impression: Previously demonstrated area of diffusion restriction in the right austin radiata has increased slightly in size. As this appeared to be hyperacute previously, suspect that this represents interval evolution to subacute stage. However, given the larger size the possibility of interim extension of the infarct should also be considered. No new infarct. No acute intracranial bleed or mass effect.
[2020-02-23 16:00] VITALS: BP 138/69
[2020-02-23] MEDS: Docusate 100mg cap ORAL SCH (17:31)
[2020-02-23] MEDS ORDERED: Docusate Sod/Senna tab ORAL SCH (18:00)
--- NOTE | 2020-02-23 19:08 | NUR ---
NURSE HAND-OFF REPORT: Important Events on Shift:[Hemorrhoid cream brought by daughter and take to pharmacy. MRI done today ] Patient Status: [Full code] Diet: [Cardiac] Pending Orders: [] Pending Results/Labs:[] Pending MD notification:[] Latest Vital Signs: Temperature 97.5 , Pulse 85 , B/P 138 /69 , Respiratory Rate 20 , O2 SAT 99 , Room Air, O2 Flow Rate . Vital Sign Comment: [] EKG Rhythm: Sinus Rhythm Rhythm change?: N MD Notified?: N - MD Response: Latest Hearn Fall Score: 50 Fall Risk: High Risk Safety Measures: Call light Within Reach, Bed Alarm Zone 2, Side Rails Side Rails x3, Bed position Low and Locked. Fall Precautions: Yellow Socks Yellow Gown Patient Fall Education Report given to []PETTY Huerta.
--- NOTE | 2020-02-23 19:40 | NUR ---
NURSE NOTES: Patient received from Germania DOVE. Patient in stable condition. Alert and oriented x4. Saturating well on room air. No s/s of distress. Awaiting pharmacy for hemorrhoid medication. IV site patent and intact on Left AC 20G saline locked. Bed in lwoest position and locked. Call light and bedside table within reach.
[2020-02-23 20:00] VITALS: BP 150/75
--- NOTE | 2020-02-23 20:45 | Surgery Progress Note ---
Surgery Progress Note Subjective Additional Comments still weak on left neuro input noted brain MRI reviewed Objective Last 24 Hour Vital Signs Date Time Temp Pulse Resp B/P (MAP) Pulse Ox O2 Delivery O2 Flow Rate FiO2 02/23/20 16:00 97.5 87 20 138/69 (92) 99 02/23/20 16:00 85 02/23/20 12:00 97.5 81 20 138/85 (102) 95 02/23/20 12:00 80 02/23/20 09:39 86 145/83 02/23/20 09:39 86 145/83 02/23/20 09:00 Room Air 02/23/20 08:00 97.7 86 20 145/83 (103) 95 02/23/20 08:00 79 02/23/20 06:45 97.7 02/23/20 04:00 97.7 77 20 138/74 (95) 96 02/23/20 03:35 71 02/23/20 00:00 64 02/23/20 00:00 97.7 70 20 138/72 (94) 97 02/22/20 21:23 97.9 02/22/20 21:00 Room Air I&O Intake and Output 02/22/20 02/23/20 19:00 07:00 Intake Total 390 ml 120 ml Output Total 400 ml 100 ml Balance -10 ml 20 ml Intake Oral 390 ml 120 ml Output Urine Total 400 ml 100 ml Cardiovascular: RSR Respiratory: clear, decreased breath sounds Abdomen: soft, non-tender, present bowel sounds, non-distended Extremities: no edema, no tenderness, no cyanosis Laboratory Tests Test 02/23/20 05:59 02/23/20 12:22 White Blood Count 5.3 K/UL (4.8-10.8) Red Blood Count 3.91 M/UL (4.20-5.40) L Hemoglobin 13.0 G/DL (12.0-16.0) Hematocrit 41.2 % (37.0-47.0) Mean Corpuscular Volume 105 FL (80-99) H Mean Corpuscular Hemoglobin 33.3 PG (27.0-31.0) H Mean Corpuscular Hemoglobin Concent 31.6 G/DL (32.0-36.0) L Red Cell Distribution Width 13.6 % (11.6-14.8) Platelet Count 313 K/UL (150-450) Mean Platelet Volume 6.7 FL (6.5-10.1) Neutrophils (%) (Auto) 67.6 % (45.0-75.0) Lymphocytes (%) (Auto) 16.3 % (20.0-45.0) L Monocytes (%) (Auto) 11.5 % (1.0-10.0) H Eosinophils (%) (Auto) 3.1 % (0.0-3.0) H Basophils (%) (Auto) 1.6 % (0.0-2.0) Sodium Level 139 MMOL/L (136-145) Potassium Level 4.7 MMOL/L (3.5-5.1) Chloride Level 106 MMOL/L (98-107) Carbon Dioxide Level 26 MMOL/L (21-32) Anion Gap 7 mmol/L (5-15) Blood Urea Nitrogen 27 mg/dL (7-18) H Creatinine 1.2 MG/DL (0.55-1.30) Estimat Glomerular Filtration Rate 53.2 mL/min (>60) Glucose Level 142 MG/DL (74-106) H Calcium Level 9.5 MG/DL (8.5-10.1) Magnesium Level 2.3 MG/DL (1.8-2.4) Plan Problems: (1) Fall Assessment & Plan: unknown LOC no acute trauma noted no significant hematoma or bruising mass head stable chronic neuro input noted appreciate eval pt/ot cardio input thank you Right: CCA= 100 cm/sec ICA = 63 cm/sec ECA = 79 cm/sec Left: CCA = 87 cm/sec ICA= 69 cm/sec ECA = 71 cm/sec ICA/CCA ratio are 0.6 on the right and 0.8 on the left. Antegrade flow is identified in the vertebral arteries bilaterally. IMPRESSION: NO HEMODYNAMICALLY SIGNIFICANT STENOSIS. (2) Mass of head Assessment & Plan: Brain: Mild generalized brain atrophy. Decreased attenuation within the deep white matter compatible with microangiopathic white matter disease. No hemorrhage. Ventricles: Unremarkable. No ventriculomegaly. Bones/joints: Unremarkable. No acute fracture. Soft tissues: Fatty lesion involving the scalp at the level of the left frontal bone suggestive of a small lipoma. This measures 2.6 x 0.3 cm. Sinuses: Unremarkable as visualized. No acute sinusitis. Mastoid air cells: Unremarkable as visualized. No mastoid effusion. IMPRESSION: Chronic changes as described. No acute intracranial hemorrhage or space-occupying lesion. lipoma benign not suggestive of fall okay for outpatient eval / removal as desired There is an area of restricted effusion in the right austin radiata. The area of diffusion restriction measures slightly larger than on the prior exam, measuring 18 mm long axis dimension, previously 15 mm. There is now T2 signal abnormality in the same area which was not evident previously. No new areas of diffusion signal abnormality are demonstrated. No acute hemorrhage or edema. No mass effect nor midline shift. There is mild age-related enlargement of the ventr icles and extra-axial CSF spaces. There is considerable periventricular deep white matter high T2 signal, consistent with chronic microvascular ischemic change.. There is evidence of prior bilateral cataract surgery. The vascular flow voids are preserved. There is a left frontal scalp lipoma again demonstrated. Impression: Previously demonstrated area of diffusion restriction in the right austin radiata has increased slightly in size. As this appeared to be hyperacute previously, suspect that this represents interval evolution to subacute stage. However, given the larger size the possibility of interim extension of the infarct should also be considered. (3) Weakness (4) Syncope Assessment & Plan: Diffuse age-related senescent changes noted with ventricular sulcal prominence as well as moderate white matter micro and hepatic changes. There is a small acute infarct in the posterior right austin radiata adjacent to the right lateral ventricle. No evidence of hemorrhage, mass effect or shift. Ventricles and cisterns appear unremarkable. Brainstem and posterior fossa appear unremarkable. The sella and parasellar regions are normal. Normal flow voids identified in the carotid siphons. Sinuses, mastoid air cells and bony calvarium are intact. There is an incidental small scalp lipoma left frontal region. IMPRESSION: SMALL ACUTE WHITE MATTER INFARCT RIGHT POSTERIOR [place] RADIATA. NO HEMORRHAGE, MASS EFFECT OR SHIFT. (5) Arthritis of left wrist Freeman Daily Feb 23, 2020 20:45
[2020-02-23] MEDS: Atorvastatin 80mg tab ORAL SCH (20:49)
[2020-02-23] MEDS: HYDROCORTISONE 2.5% RECTAL PRN (20:49)
[2020-02-24] VITALS: BP 152/72
--- NOTE | 2020-02-24 02:18 | Cardiology Progress Note ---
Subjective DATE OF SERVICE: Feb 24, 2020 CT head on 02/21 showed new right BG infarct. Still with fluctuating paresis of left side; upper extremity affected predominantly. BP parameters stable. Monitor: reviewed with emergency room technician - no atrial arrhythmias - sinus rhythm only Objective Last 24 Hour Vital Signs Date Time Temp Pulse Resp B/P (MAP) Pulse Ox O2 Delivery O2 Flow Rate FiO2 02/24/20 00:00 97.3 93 18 152/72 (98) 96 02/24/20 00:00 77 02/23/20 21:00 Room Air 02/23/20 20:00 97.0 93 19 150/75 (100) 97 02/23/20 20:00 90 02/23/20 16:00 97.5 87 20 138/69 (92) 99 02/23/20 16:00 85 02/23/20 12:00 97.5 81 20 138/85 (102) 95 02/23/20 12:00 80 02/23/20 09:39 86 145/83 02/23/20 09:39 86 145/83 02/23/20 09:00 Room Air 02/23/20 08:00 97.7 86 20 145/83 (103) 95 02/23/20 08:00 79 02/23/20 06:45 97.7 02/23/20 04:00 97.7 77 20 138/74 (95) 96 02/23/20 03:35 71 ROS: no change from my inital evaluation HEENT: normal ENT inspection RHYTHM: NSR LUNGS: lungs clear bilaterally CARDIAC: normal rate, regular rhythm, normal S1 and S2 ABDOMEN: normal bowel sounds, non tender, soft, no organomegaly EXTREMITIES: No edema, other - left hemiparesis - predomnantly upper extr Laboratory Tests Test 02/23/20 05:59 02/23/20 12:22 White Blood Count 5.3 K/UL (4.8-10.8) Red Blood Count 3.91 M/UL (4.20-5.40) L Hemoglobin 13.0 G/DL (12.0-16.0) Hematocrit 41.2 % (37.0-47.0) Mean Corpuscular Volume 105 FL (80-99) H Mean Corpuscular Hemoglobin 33.3 PG (27.0-31.0) H Mean Corpuscular Hemoglobin Concent 31.6 G/DL (32.0-36.0) L Red Cell Distribution Width 13.6 % (11.6-14.8) Platelet Count 313 K/UL (150-450) Mean Platelet Volume 6.7 FL (6.5-10.1) Neutrophils (%) (Auto) 67.6 % (45.0-75.0) Lymphocytes (%) (Auto) 16.3 % (20.0-45.0) L Monocytes (%) (Auto) 11.5 % (1.0-10.0) H Eosinophils (%) (Auto) 3.1 % (0.0-3.0) H Basophils (%) (Auto) 1.6 % (0.0-2.0) Sodium Level 139 MMOL/L (136-145) Potassium Level 4.7 MMOL/L (3.5-5.1) Chloride Level 106 MMOL/L (98-107) Carbon Dioxide Level 26 MMOL/L (21-32) Anion Gap 7 mmol/L (5-15) Blood Urea Nitrogen 27 mg/dL (7-18) H Creatinine 1.2 MG/DL (0.55-1.30) Estimat Glomerular Filtration Rate 53.2 mL/min (>60) Glucose Level 142 MG/DL (74-106) H Calcium Level 9.5 MG/DL (8.5-10.1) Magnesium Level 2.3 MG/DL (1.8-2.4) Assessment/Plan Assessment/Plan 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 Hypertensive urgency resolving Hypertension/HHD Hyperlipidemia Anti-platelet therapy Statin drug PT/OT/ST Cautious titration of antiHTN regimen for BP control Continuous cardiac monitoring MRI scan ? cerebral angio? Consider Darshan Watts MD Feb 24, 2020 02:18
[2020-02-24 04:00] VITALS: BP 134/79
[2020-02-24] MEDS: HYDROcodone/Acetamin 5/325 tab ORAL PRN ×3 (06:35→20:26)
--- NOTE | 2020-02-24 06:41 | NUR ---
NURSE HAND-OFF REPORT: Important Events on Shift:[] Patient Status: [Stable A&ox4] Diet: [Cardiac Mech Soft] Pending Orders: [] Pending Results/Labs:[] Pending MD notification:[] Latest Vital Signs: Temperature 100.0 , Pulse 78 , B/P 134 /79 , Respiratory Rate 18 , O2 SAT 93 , Room Air, O2 Flow Rate . Vital Sign Comment: [] EKG Rhythm: Sinus Rhythm Rhythm change?: N MD Notified?: N - MD Response: Latest Hearn Fall Score: 50 Fall Risk: High Risk Safety Measures: Call light Within Reach, Bed Alarm Zone 2, Side Rails Side Rails x3, Bed position Low and Locked. Fall Precautions: Yellow Socks Yellow Gown Patient Fall Education Report given to []. Addendum: 02/24/20 at 0730 by Deanna Molina RN Report given to candace DOVE
--- NOTE | 2020-02-24 07:31 | NUR ---
CASE MANAGEMENT:REVIEW 02/24/20 SI: ACUTE CVA. SYNCOPE. WEAKNESS 100.0 79 18 134/79 93% ON RA IS: NORVASC PO QD TOPROL XL PO QD SEROQUEL PO QHS ASA PO QD MECLIZINE PO TID WELLBUTRIN PO QD NORCO PO Q6HRS PRN PAIN : TELEMETRY STATUS DCP: FROM HOME PLAN: PATIENT IS REFUSING SNF PLACEMENT AND WANTS TO RETURN HOME
--- NOTE | 2020-02-24 07:59 | NUR ---
NURSE NOTES: Report received from PETTY Huerta. Patient observed to be asleep, currently on room air, no s/sx of any distress. Patient with IV site located on LAC gauge 20 asymptomatic, inplace and intact. Bed placed on lowest and locked, call light placed within reach and will continue to monitor for any changes in patient's condition.
[2020-02-24 08:00] VITALS: BP 138/73
[2020-02-24] MEDS: Meclizine 25mg tab ORAL SCH ×3 (08:49→17:47)
[2020-02-24] MEDS: Aspirin Baby 81mg ORAL SCH (08:50)
[2020-02-24] MEDS: Docusate 100mg cap ORAL SCH ×2 (08:50→17:48)
[2020-02-24] MEDS: Metoprolol Succinate XL 25mg tab ORAL SCH (08:50)
--- NOTE | 2020-02-24 11:12 | NUR ---
HAND-OFF: Report given to PETTY Perry.
--- NOTE | 2020-02-24 11:30 | NUR ---
NURSE NOTES: Handoff received from Katerina RN. PAtient is awake and alert, no signs of acute distress noted. PAtient has left sided weakness. Right Arm Iv is intact and saline locked. Bed is low and locked, side rails up x2, call light is within reach.
[2020-02-24 12:00] VITALS: BP 149/79
--- NOTE | 2020-02-24 13:16 | Internal Med Progress Note ---
Subjective Physician Name Darryl Claudio Attending Physician Darryl Claudio M.D. Current Medications Medications (Trade) Dose Ordered Sig/Yenny Route PRN Reason Start Time Stop Time Status Last Admin Dose Admin Acetaminophen (Tylenol) 650 mg Q6H PRN ORAL pain 1-3 02/18/20 01:15 03/19/20 01:14 Acetaminophen (Tylenol) 650 mg Q6H PRN ORAL temp of 100.5 or greater 02/18/20 01:15 03/19/20 01:14 Acetaminophen/ Hydrocodone Bitart ([place] 5/325) 1 tab Q6H PRN ORAL pain 7-10 02/18/20 02:00 02/25/20 01:59 02/24/20 06:35 Amlodipine Besylate (Norvasc) 10 mg DAILY ORAL 02/22/20 09:00 03/20/20 08:59 02/24/20 08:51 Aspirin (ASA) 81 mg DAILY ORAL 02/18/20 09:00 04/03/20 08:59 02/24/20 08:50 Atorvastatin Calcium (Lipitor) 80 mg BEDTIME ORAL 02/18/20 21:00 05/18/20 20:59 02/23/20 20:49 Bupropion HCl (Wellbutrin) 300 mg DAILY ORAL 02/18/20 09:00 03/19/20 08:59 02/24/20 08:50 Cyclobenzaprine HCl (Flexeril) 10 mg TIDPRN PRN ORAL Muscle Spasm 02/18/20 18:45 02/25/20 18:44 02/22/20 20:54 Docusate Sodium (Colace) 100 mg TWICE A DAY ORAL 02/23/20 18:00 03/24/20 17:59 02/24/20 08:50 Indomethacin (Indocin) 25 mg DAILYPRN PRN ORAL moderate pain 02/18/20 13:45 03/19/20 01:44 Magnesium Hydroxide (Mom) 30 ml DAILYPRN PRN ORAL Constipation 02/21/20 17:45 03/22/20 17:44 02/21/20 18:31 Meclizine HCl (Antivert) 25 mg THREE TIMES A DAY ORAL 02/18/20 09:00 03/19/20 08:59 02/24/20 08:49 Metoprolol Succinate (Toprol XL) 25 mg DAILY ORAL 02/21/20 09:00 05/21/20 08:59 02/24/20 08:50 Ondansetron HCl (Zofran) 4 mg Q4H PRN IVP Nausea & Vomiting 02/18/20 20:00 03/19/20 19:59 02/22/20 04:55 Patient Own Medication (Patient's Own Med) 1 ea BIDPRN PRN RECTAL hemorrhoid inflammation 02/23/20 18:08 03/24/20 18:07 02/23/20 20:49 Polyethylene Glycol (Miralax) 17 gm DAILYPRN PRN ORAL Constipation 02/23/20 13:30 03/24/20 13:29 Quetiapine Fumarate (SEROqueL) 150 mg BEDTIME ORAL 02/18/20 21:00 04/03/20 20:59 02/22/20 20:54 Tramadol HCl (Ultram) 50 mg Q6H PRN ORAL Moderate Pain (Pain Scale 4-6) 02/18/20 01:45 02/25/20 01:44 02/20/20 17:25 Allergies: Coded Allergies: No Known Allergies (Unverified , 06/26/15) ROS Limited/Unobtainable: No Constitutional: Reports: weakness HEENT: Denies: no symptoms, eye pain, blurred vision, tearing, double vision, ear pain, ear discharge, nose pain, nose congestion, throat pain, throat swellin g, mouth pain, mouth swelling, other Cardiovascular: Denies: no symptoms, chest pain, edema, irregular heart rate, lightheadedness, palpitations, syncope, other Respiratory: Denies: no symptoms, cough, orthopnea, shortness of breath, SOB with excertion, SOB at rest, sputum, stridor, wheezing, other Genitourinary: Denies: no symptoms, burning, discharge, frequency, flank pain, hematuria, incontinence, pain, urgency, other Neurologic/Psychiatric: Denies: no symptoms, anxiety, depressed, emotional problems, headache, numbness, paresthesia, pre-existing deficit, seizure, tingling, tremors, weakness, other Subjective left sided weakness fluctuating brain MRI repeated Impression: Previously demonstrated area of diffusion restriction in the right [place] radiata has increased slightly in size. As this appeared to be hyperacute previously, suspect that this represents interval evolution to subacute stage. However, given the larger size the possibility of interim extension of the infarct should also be considered. No new infarct. No acute intracranial bleed or mass effect. Objective Last Vital Signs Date Time Temp Pulse Resp B/P (MAP) Pulse Ox O2 Delivery O2 Flow Rate FiO2 02/24/20 09:00 Room Air 02/24/20 08:51 81 138/73 02/24/20 08:00 97.5 20 96 Intake and Output 02/23/20 02/24/20 19:00 07:00 Intake Total 400 ml 120 ml Balance 400 ml 120 ml Intake Oral 400 ml 120 ml # Voids 2 2 Objective General appearance: alert, cooperative, no distress, appears stated age Head: Normocephalic, without obvious abnormality, atraumatic Eyes: conjunctivae/corneas clear. PERRL, EOM's intact. Fundi benign Throat: Lips, mucosa, and tongue normal. Teeth and gums normal Neck: supple, symmetrical, trachea midline, no adenopathy, thyroid: not enlarged, symmetric, no tenderness/mass/nodules, no carotid bruit and no JVD Lungs: clear to auscultation bilaterally Heart: regular rate and rhythm, S1, S2 normal, no murmur, click, rub or gallop Abdomen: soft, non-tender. Bowel sounds normal. No masses, no organomegaly Extremities: extremities normal, atraumatic, no cyanosis or edema Pulses: 2+ and symmetric Skin: Skin color, texture, turgor normal. No rashes or lesions Neurologic: Left sided weakness Assessment/Plan Assessment/Plan #CVA #Left sided weakness #HTN #lightheadedness #elevated - tele - neuro eval - brain MRI- [place] - 2d echo - carotid US no sig stenosis - cardiology eval - asa 81 - lipitror 80 - monitor BP - monitor Darryl King M.D. Feb 24, 2020 13:16
--- NOTE | 2020-02-24 13:39 | Neurology Progress Note ---
Interim History Interim History ROS Limited/Unobtainable: No Events: rounded with Dr. Shepard pt complains of headache Objective Physical Exam Last Vital Signs Date Time Temp Pulse Resp B/P (MAP) Pulse Ox O2 Delivery O2 Flow Rate FiO2 02/24/20 09:00 Room Air 02/24/20 08:51 81 138/73 02/24/20 08:00 97.5 20 96 Neurologic Exam Mental Status: awake, alert Speech: normal speech Language: normal language Cranial Nerve II: fundus normal Cranial Nerves III, IV, : PERRLA Cranial Nerve V: normal facial sensations Objective Neuro Exam: Physical Exam: VS reviewed General: Patient is seated in bed no acute distress Neuro: Awake and Alert Oriented x4, has insight to situation Comprehension intact.Language parameters intact. Cranial nerves II-XII are tested No Neglect Pupils are round equal and reactive. Tongue is midline. Motor: No involuntary movements. Left upper extremity strength is equal 2/5, Right UE 5/5, LLE 4/5, RLE 5/5. Left hemiparesis Sensation intact to light and touch.Left facial droop mild Coordination and gait not tested at this time Impression/Recommendations Diagnostic Impression Assessment and Rec's: 1. 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 NO HEMORRHAGE, MASS EFFECT OR SHIFT. --> ST evaluation complete on mechanical soft diet d/w RN to change diet according to ST rec's --> CT Head and Neck unremarkable, Repeat MRI Brain revealed extension of stroke. 2. Syncope --> no further episodes. --> BP goal < 160/95 --> 2D Echo reviewed Normal LVEF 60% --> carotid us no significant stenosis --> continue asa 81mg po daily --> continue statin lipitor 80mg po daily 3. Arthritis Left Wrist 4. Weakness --> continue PT/OT, will benefit for ARU 4. Underlying HTN --> cont BP meds Recommendations No further recommendation from Neuro persecptive Keep BP higher than normal Hold BP meds and start BP meds from 1 week of onset of stroke. Continue Statin and ASA and ARU candidate. Sandra Cazares NP Feb 24, 2020 13:39
[2020-02-24] MEDS: HYDROCORTISONE 2.5% RECTAL PRN (15:59)
[2020-02-24 16:00] VITALS: BP 144/82
--- NOTE | 2020-02-24 17:08 | Surgery Progress Note ---
Surgery Progress Note Subjective Additional Comments stable no acute events Objective Last 24 Hour Vital Signs Date Time Temp Pulse Resp B/P (MAP) Pulse Ox O2 Delivery O2 Flow Rate FiO2 02/24/20 14:07 97.5 02/24/20 12:00 98.4 83 18 149/79 (102) 99 02/24/20 09:00 Room Air 02/24/20 08:51 81 138/73 02/24/20 08:50 81 138/73 02/24/20 08:00 80 02/24/20 08:00 97.5 81 20 138/73 (94) 96 02/24/20 07:05 100.0 02/24/20 04:00 78 02/24/20 04:00 100.0 79 18 134/79 (97) 93 02/24/20 00:00 97.3 93 18 152/72 (98) 96 02/24/20 00:00 77 02/23/20 21:00 Room Air 02/23/20 20:00 97.0 93 19 150/75 (100) 97 02/23/20 20:00 90 I&O Intake and Output 02/23/20 02/24/20 19:00 07:00 Intake Total 400 ml 120 ml Balance 400 ml 120 ml Intake Oral 400 ml 120 ml # Voids 2 2 Cardiovascular: RSR Respiratory: decreased breath sounds Abdomen: soft, non-tender, present bowel sounds, non-distended Extremities: no tenderness, no cyanosis Plan Problems: (1) Fall Assessment & Plan: unknown LOC no acute trauma noted no significant hematoma or bruising mass head stable chronic neuro input noted appreciate eval pt/ot cardio input thank you Right: CCA= 100 cm/sec ICA = 63 cm/sec ECA = 79 cm/sec Left: CCA = 87 cm/sec ICA= 69 cm/sec ECA = 71 cm/sec ICA/CCA ratio are 0.6 on the right and 0.8 on the left. Antegrade flow is identified in the vertebral arteries bilaterally. IMPRESSION: NO HEMODYNAMICALLY SIGNIFICANT STENOSIS. (2) Mass of head Assessment & Plan: Brain: Mild generalized brain atrophy. Decreased attenuation within the deep white matter compatible with microangiopathic white matter disease. No hemorrhage. Ventricles: Unremarkable. No ventriculomegaly. Bones/joints: Unremarkable. No acute fracture. Soft tissues: Fatty lesion involving the scalp at the level of the left frontal bone suggestive of a small lipoma. This measures 2.6 x 0.3 cm. Sinuses: Unremarkable as visualized. No acute sinusitis. Mastoid air cells: Unremarkable as visualized. No mastoid effusion. IMPRESSION: Chronic changes as described. No acute intracranial hemorrhage or space-occupying lesion. lipoma benign not suggestive of fall okay for outpatient eval / removal as desired There is an area of restricted effusion in the right austin radiata. The area of diffusion restriction measures slightly larger than on the prior exam, measuring 18 mm long axis dimension, previously 15 mm. There is now T2 signal abnormality in the same area which was not evident previously. No new areas of diffusion signal abnormality are demonstrated. No acute hemorrhage or edema. No mass effect nor midline shift. There is mild age-related enlargement of the ventricles and extra-axial CSF spaces. There is considerable periventricular deep white matter high T2 signal, consistent with chronic microvascular ischemic change.. There is evidence of prior bilateral cataract surgery. The vascular flow voids are preserved. There is a left frontal scalp lipoma again demonstrated. Impression: Previously demonstrated area of diffusion restriction in the right [place] radiata has increased slightly in size. As this appeared to be hyperacute previously, suspect that this represents interval evolution to subacute stage. However, given the larger size the possibility of interim extension of the infarct should also be considered. (3) Weakness (4) Syncope Assessment & Plan: Diffuse age-related senescent changes noted with ventricular sulcal prominence as well as moderate white matter micro and hepatic changes. There is a small acute infarct in the posterior right [place]in radiata adjacent to the right lateral ventricle. No evidence of hemorrhage, mass effect or shift. Ventricles and cisterns appear unremarkable. Brainstem and posterior fossa appear unremarkable. The sella and parasellar regions are normal. Normal flow voids identified in the carotid siphons. Sinuses, mastoid air cells and bony calvarium are intact. There is an incidental small scalp lipoma left frontal region. IMPRESSION: SMALL ACUTE WHITE MATTER INFARCT RIGHT POSTERIOR [place] RADIATA. NO HEMORRHAGE, MASS EFFECT OR SHIFT. No further recommendation from Neuro persecptive Keep BP higher than normal Hold BP meds and start BP meds from 1 week of onset of stroke. Continue Statin and ASA and ARU candidate. (5) Arthritis of left wrist Freeman Daily Feb 24, 2020 17:08
--- NOTE | 2020-02-24 19:35 | NUR ---
NURSE NOTES: Receive a report from PETTY Perry. Round is made. Pt is awake and alert. No acute distress noted. On bed-bound with left side weakness. No aspiration noted but still precautions. Bladder and bowel are continent, using bedpan. Pt says right face numbness persist about 80% and had CT and MRI done. Call light within reach. Will continue to monitor.
--- NOTE | 2020-02-24 19:35 | NUR ---
NURSE HAND-OFF: Important Events on Shift:[Arrival to 3E] Patient Status: stable Diet: cardiac mech soft chopped Pending Orders: Pending Results/Labs: Pending MD notification: Latest Vital Signs: Temperature 98.3 , Pulse 79 , B/P 144 /82 , Respiratory Rate 18 , O2 SAT 99 , Room Air, O2 Flow Rate . Vital Sign Comment: stable Latest Hearn Fall Score: 50 Fall Risk: High Risk Safety Measures: Call light Within Reach, Bed Alarm Zone 2, Side Rails Side Rails x3, Bed position Low and Locked. Fall Precautions: Yellow Socks Yellow Gown Patient Fall Education Report given to Yvetteo RN.
[2020-02-24 20:00] VITALS: BP 118/78
[2020-02-24] MEDS: Atorvastatin 80mg tab ORAL SCH (20:25)
--- NOTE | 2020-02-24 21:30 | NUR ---
NURSE NOTES: Refuse to take Seroquel bc it makes her dizziness. Will continue to follow up.
[2020-02-25] VITALS: BP 139/73
[2020-02-25] MEDS: traMADol 50mg tab ORAL PRN (00:44)
[2020-02-25 04:00] VITALS: BP 130/70
[2020-02-25] MEDS: HYDROCORTISONE 2.5% RECTAL PRN (06:25)
--- NOTE | 2020-02-25 06:39 | NUR ---
NURSE HAND-OFF: Important Events on Shift: back pain-pain medication x3. BMx1 Patient Status: [stable] Diet: [cardiac mechanical soft chopped ] Pending Orders: [] Pending Results/Labs:[] Pending MD notification:[renew pain medication-Norco5/325 and tramadol] Latest Vital Signs: Temperature 97.8 , Pulse 90 , B/P 130 /70 , Respiratory Rate 18 , O2 SAT 95 , Room Air, O2 Flow Rate . Vital Sign Comment: [] Latest Hearn Fall Score: 50 Fall Risk: High Risk Safety Measures: Call light Within Reach, Bed Alarm Zone 2, Side Rails Side Rails x3, Bed position Low and Locked. Fall Precautions: Yellow Socks Yellow Gown Door Sign Patient Fall Education
--- NOTE | 2020-02-25 07:24 | NUR ---
NURSE NOTES: Report received from o RN, rounds made. Patient AOx4, calm. Respirations even, unlabored on RA. Left side weak. LAC saline lock, intact. Call light in reach, bed in lowest position, will continue to monitor.
--- NOTE | 2020-02-25 07:30 | NUR ---
HAND-OFF: Report given to PETTY Welch.
[2020-02-25 08:00] VITALS: BP 144/79
[2020-02-25] MEDS: Docusate 100mg cap ORAL SCH ×3 (09:00→17:06)
[2020-02-25] MEDS: Cyclobenzaprine 10mg Tab ORAL PRN (10:02)
[2020-02-25] MEDS: Meclizine 25mg tab ORAL SCH ×3 (10:06→17:06)
[2020-02-25] MEDS: Aspirin Baby 81mg ORAL SCH (10:06)
[2020-02-25] MEDS: Metoprolol Succinate XL 25mg tab ORAL SCH (10:07)
[2020-02-25] MEDS ORDERED: traMADol 50mg tab ORAL PRN (11:00)
[2020-02-25] MEDS: HYDROcodone/Acetamin 5/325 tab ORAL PRN ×2 (11:51→22:50)
--- NOTE | 2020-02-25 11:53 | Neurology Progress Note ---
Interim History Interim History ROS Limited/Unobtainable: No Events: No complaints. no distress Objective Physical Exam Last Vital Signs Date Time Temp Pulse Resp B/P (MAP) Pulse Ox O2 Delivery O2 Flow Rate FiO2 02/25/20 10:07 84 144/79 02/25/20 08:00 97.9 18 98 02/24/20 21:00 Room Air Neurologic Exam Mental Status: awake, alert Speech: normal speech Language: normal language Cranial Nerve II: fundus normal Cranial Nerves III, IV, : PERRLA Cranial Nerve V: normal facial sensations Objective Neuro Exam: Physical Exam: VS reviewed General: Patient is seated in bed no acute distress Neuro: Awake and Alert Oriented x4, has insight to situation Comprehension intact.Language parameters intact. Cranial nerves II-XII are tested No Neglect Pupils are round equal and reactive. Tongue is midline. Motor: No involuntary movements. Left upper extremity strength is equal 2/5, Right UE 5/5, LLE 4/5, RLE 5/5. Left hemiparesis Sensation intact to light and touch.Left facial droop mild Coordination and gait not tested at this time Impression/Recommendations Diagnostic Impression Assessment and Rec's: 1. 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 NO HEMORRHAGE, MASS EFFECT OR SHIFT. --> ST evaluation complete on mechanical soft diet d/w RN to change diet according to ST rec's --> CT Head and Neck unremarkable, Repeat MRI Brain revealed extension of stroke. 2. Syncope --> no further episodes. --> BP goal < 160/95 --> 2D Echo reviewed Normal LVEF 60% --> carotid us no significant stenosis --> continue asa 81mg po daily --> continue statin lipitor 80mg po daily 3. Arthritis Left Wrist 4. Weakness --> continue PT/OT, will benefit for ARU 4. Underlying HTN --> cont BP meds Recommendations No further recommendation from Neuro persecptive Keep BP higher than normal Hold BP meds and start BP meds from 1 week of onset of stroke. Continue Statin and ASA and ARU candidate. Sandra Cazares NP Feb 25, 2020 11:53
--- NOTE | 2020-02-25 11:58 | NUR ---
RD ASSESSMENT & RECOMMENDATIONS SEE CARE ACTIVITY FOR COMPLETE ASSESSMENT DAILY ESTIMATED NEEDS: Needs based on Cardiac 62kg abw 25-30 kcals/kg 9684-8206 total kcals 1-1.2 g protein/kg 62-74 g total protein 25-30 mL/kg 6546-2112 total fluid mLs NUTRITION DIAGNOSIS: Decreased sodium needs r/t cardiac eventas evidenced by pt w/ acute CVA, elev BP(144/79). CURRENT DIET: cardiac ms chopped PO DIET RECOMMENDATIONS: LOW NA diet (ms chopped as per [employer]) ADDITIONAL RECOMMENDATIONS: 1) Monitor for continued good po intake 2) Daily wts, rec to recalibrate bed scale 3) Hypoglycemics; check HgA1c
[2020-02-25 12:00] VITALS: BP 141/73
--- NOTE | 2020-02-25 12:16 | NUR ---
NURSE NOTES: Dr. Claudio notified that patient complains of left leg pain (reports it's nerve pain), reviewed eMAR, orders for Gabapentin 300 mg BID, will follow as ordered, will update patient.
--- NOTE | 2020-02-25 12:57 | Surgery Progress Note ---
Surgery Progress Note Subjective Additional Comments no acute events still difficult to move left side no n/v pending rehab placement cont local care to ensure not decubitus formation Objective Last 24 Hour Vital Signs Date Time Temp Pulse Resp B/P (MAP) Pulse Ox O2 Delivery O2 Flow Rate FiO2 02/25/20 12:00 97.9 83 18 141/73 (95) 98 02/25/20 10:07 84 144/79 02/25/20 10:06 84 144/79 02/25/20 08:00 97.9 84 18 144/79 (100) 98 02/25/20 04:00 97.8 90 18 130/70 (90) 95 02/25/20 00:00 97.6 85 18 139/73 (95) 98 02/24/20 21:00 Room Air 02/24/20 20:00 98.4 86 18 118/78 (91) 97 02/24/20 16:00 98.3 79 18 144/82 (102) 99 02/24/20 14:07 97.5 I&O Intake and Output 02/24/20 02/25/20 19:00 07:00 Intake Total 350 ml 400 ml Balance 350 ml 400 ml Intake Oral 350 ml 400 ml # Voids 3 3 # Bowel Movements 2 1 Cardiovascular: RSR Respiratory: clear Abdomen: soft, non-tender, present bowel sounds, non-distended Extremities: no edema, no tenderness, no cyanosis, other Plan Problems: (1) Fall Assessment & Plan: unknown LOC no acute trauma noted no significant hematoma or bruising mass head stable chronic neuro input noted appreciate eval pt/ot cardio input thank you Right: CCA= 100 cm/sec ICA = 63 cm/sec ECA = 79 cm/sec Left: CCA = 87 cm/sec ICA= 69 cm/sec ECA = 71 cm/sec ICA/CCA ratio are 0.6 on the right and 0.8 on the left. Antegrade flow is identified in the vertebral arteries bilaterally. IMPRESSION: NO HEMODYNAMICALLY SIGNIFICANT STENOSIS. (2) Mass of head Assessment & Plan: Brain: Mild generalized brain atrophy. Decreased attenuation within the deep white matter compatible with microangiopathic white matter disease. No hemorrhage. Ventricles: Unremarkable. No ventriculomegaly. Bones/joints: Unremarkable. No acute fracture. Soft tissues: Fatty lesion involving the scalp at the level of the left frontal bone suggestive of a small lipoma. This measures 2.6 x 0.3 cm. Sinuses: Unremarkable as visualized. No acute sinusitis. Mastoid air cells: Unremarkable as visualized. No mastoid effusion. IMPRESSION: Chronic changes as described. No acute intracranial hemorrhage or space-occupying lesion. lipoma benign not suggestive of fall okay for outpatient eval / removal as desired There is an area of restricted effusion in the right austin radiata. The area of diffusion restriction measures slightly larger than on the prior exam, measuring 18 mm long axis dimension, previously 15 mm. There is now T2 signal abnormality in the same area which was not evident previously. No new areas of diffusion signal abnormality are demonstrated. No acute hemorrhage or edema. No mass effect nor midline shift. There is mild age-related enlargement of the ventricles and extra-axial CSF spaces. There is considerable periventricular deep white matter high T2 signal, consistent with chronic microvascular ischemic change.. There is evidence of prior bilateral cataract surgery. The vascular flow voids are preserved. There is a left frontal scalp lipoma again demonstrated. Impression: Previously demonstrated area of diffusion restriction in the right austin radiata has increased slightly in size. As this appeared to be hyperacute previously, suspect that this represents interval evolution to subacute stage. However, given the larger size the possibility of interim extension of the infarct should also be considered. (3) Weakness (4) Syncope Assessment & Plan: Diffuse age-related senescent changes noted with ventricular sulcal prominence as well as moderate white matter micro and hepatic changes. There is a small acute infarct in the posterior right austin radiata adjacent to the right lateral ventricle. No evidence of hemorrhage, mass effect or shift. Ventricles and cisterns appear unremarkable. Brainstem and posterior fossa appear unremarkable. The sella and parasellar regions are normal. Normal flow voids identified in the carotid siphons. Sinuses, mastoid air cells and bony calvarium are intact. There is an incidental small scalp lipoma left frontal region. IMPRESSION: SMALL ACUTE WHITE MATTER INFARCT RIGHT POSTERIOR AUSTIN RADIATA. NO HEMORRHAGE, MASS EFFECT OR SHIFT. No further recommendation from Neuro persecptive Keep BP higher than normal Hold BP meds and start BP meds from 1 week of onset of stroke. Continue Statin and ASA and ARU candidate. (5) Arthritis of left wrist Freeman Daily Feb 25, 2020 12:57
[2020-02-25 16:00] VITALS: BP 136/74
--- NOTE | 2020-02-25 19:25 | NUR ---
NURSE NOTES: Received report from PETTY Welch. Pt is in bed, A&Ox4, bed locked in lowest position, side rails up x2, call light within reach. Will continue to monitor.
--- NOTE | 2020-02-25 19:42 | NUR ---
NURSE HAND-OFF: Important Events on Shift:Started Gabapentin, PT (poor tolerance), needs purwik applied, medicated with Flexeril/[place] Patient Status: stable Diet: Cardiac (mechanical soft) Pending Orders: none Pending Results/Labs:none Pending MD notification:none Latest Vital Signs: Temperature 98.4 , Pulse 94 , B/P 136 /74 , Respiratory Rate 20 , O2 SAT 93 , Room Air, O2 Flow Rate . Vital Sign Comment: none Latest Hearn Fall Score: 80 Fall Risk: High Risk Safety Measures: Call light Within Reach, Bed Alarm Zone 2, Side Rails Side Rails x3, Bed position Low and Locked. Fall Precautions: Yellow Socks Yellow Gown Door Sign Patient Fall Education Report given to Darshan DOVE.
[2020-02-25 20:00] VITALS: BP 136/64
[2020-02-25] MEDS: Atorvastatin 80mg tab ORAL SCH (20:45)
[2020-02-26] VITALS: BP 123/67
[2020-02-26 04:00] VITALS: BP 134/72
--- NOTE | 2020-02-26 07:06 | NUR ---
NURSE HAND-OFF: Important Events on Shift: Attempted BM x2, able to sleep through most of night Patient Status: awake and watching TV Diet: mechanical soft cardiac diet Pending Orders: Pending Results/Labs: Pending MD notification: Latest Vital Signs: Temperature 98.9 , Pulse 89 , B/P 134 /72 , Respiratory Rate 18 , O2 SAT 99 , Room Air, O2 Flow Rate . Vital Sign Comment: VSS Latest Hearn Fall Score: 80 Fall Risk: High Risk Safety Measures: Call light Within Reach, Bed Alarm Zone 2, Side Rails Side Rails x3, Bed position Low and Locked. Fall Precautions: Yellow Socks Yellow Gown Door Sign Patient Fall Education Report given to PETTY Frias.
[2020-02-26 08:00] VITALS: BP 127/71
[2020-02-26] MEDS: Aspirin Baby 81mg ORAL SCH (08:49)
[2020-02-26] MEDS: Docusate 100mg cap ORAL SCH ×2 (08:49→18:17)
[2020-02-26] MEDS: Meclizine 25mg tab ORAL SCH ×3 (08:50→18:17)
[2020-02-26] MEDS: Metoprolol Succinate XL 25mg tab ORAL SCH (08:51)
--- NOTE | 2020-02-26 10:04 | NUR ---
NURSE NOTES: RECIEVED PT IN BED ALERT AND ORIENTED LEFT SIDED WEAKNESS.TURNED AND REPOSITIONED FOR COMFORT ,CALL LIGHT WITHIN REACH. NEEDS ATTENDED.WILL CONTINUE TO MONITOR
[2020-02-26] MEDS: HYDROcodone/Acetamin 5/325 tab ORAL PRN ×2 (11:21→18:18)
--- NOTE | 2020-02-26 11:21 | Internal Med Progress Note ---
Subjective Date of Service: Feb 25, 2020 Physician Name Darryl Claudio Attending Physician Darryl Claudio M.D. Current Medications Medications (Trade) Dose Ordered Sig/Yenny Route PRN Reason Start Time Stop Time Status Last Admin Dose Admin Acetaminophen (Tylenol) 650 mg Q6H PRN ORAL pain 1-3 02/18/20 01:15 03/19/20 01:14 Acetaminophen (Tylenol) 650 mg Q6H PRN ORAL temp of 100.5 or greater 02/18/20 01:15 03/19/20 01:14 Acetaminophen/ Hydrocodone Bitart ([place] 5/325) 1 tab Q6H PRN ORAL pain 7-10 02/25/20 11:00 03/03/20 10:59 02/25/20 22:50 Amlodipine Besylate (Norvasc) 10 mg DAILY ORAL 02/22/20 09:00 03/20/20 08:59 02/26/20 08:50 Aspirin (ASA) 81 mg DAILY ORAL 02/18/20 09:00 04/03/20 08:59 02/26/20 08:49 Atorvastatin Calcium (Lipitor) 80 mg BEDTIME ORAL 02/18/20 21:00 05/18/20 20:59 02/25/20 20:45 Bupropion HCl (Wellbutrin) 300 mg DAILY ORAL 02/18/20 09:00 03/19/20 08:59 02/26/20 08:51 Docusate Sodium (Colace) 100 mg TWICE A DAY ORAL 02/23/20 18:00 03/24/20 17:59 02/26/20 08:49 Gabapentin (Neurontin) 300 mg BID ORAL 02/25/20 12:30 03/26/20 12:29 02/26/20 08:50 Indomethacin (Indocin) 25 mg DAILYPRN PRN ORAL moderate pain 02/18/20 13:45 03/19/20 01:44 02/25/20 05:00 Magnesium Hydroxide (Mom) 30 ml DAILYPRN PRN ORAL Constipation 02/21/20 17:45 03/22/20 17:44 02/21/20 18:31 Meclizine HCl (Antivert) 25 mg THREE TIMES A DAY ORAL 02/18/20 09:00 03/19/20 08:59 02/26/20 08:50 Metoprolol Succinate (Toprol XL) 25 mg DAILY ORAL 02/21/20 09:00 05/21/20 08:59 02/26/20 08:51 Ondansetron HCl (Zofran) 4 mg Q4H PRN IVP Nausea & Vomiting 02/18/20 20:00 03/19/20 19:59 02/22/20 04:55 Patient Own Medication (Patient's Own Med) 1 ea BIDPRN PRN RECTAL hemorrhoid inflammation 02/23/20 18:08 03/24/20 18:07 02/25/20 06:25 Polyethylene Glycol (Miralax) 17 gm DAILYPRN PRN ORAL Constipation 02/23/20 13:30 03/24/20 13:29 Quetiapine Fumarate (SEROqueL) 150 mg BEDTIME ORAL 02/18/20 21:00 04/03/20 20:59 02/22/20 20:54 Tramadol HCl (Ultram) 50 mg Q6H PRN ORAL Moderate Pain (Pain Scale 4-6) 02/25/20 11:00 03/03/20 10:59 Allergies: Coded Allergies: No Known Allergies (Unverified , 06/26/15) Subjective left sided weakness fluctuating brain MRI repeated Impression: Previously demonstrated area of diffusion restriction in the right austin radiata has increased slightly in size. As this appeared to be hyperacute previously, suspect that this represents interval evolution to subacute stage. However, given the larger size the possibility of interim extension of the infarct should also be considered. No new infarct. No acute intracranial bleed or mass effect. Objective Last Vital Signs Date Time Temp Pulse Resp B/P (MAP) Pulse Ox O2 Delivery O2 Flow Rate FiO2 02/26/20 09:00 Room Air 02/26/20 08:51 95 127/71 02/26/20 08:00 99.3 18 97 Intake and Output 02/25/20 02/26/20 19:00 07:00 Intake Total 500 ml 400 ml Output Total 400 ml Balance 500 ml 0 ml Intake Oral 500 ml 400 ml Output Urine Total 400 ml # Voids 3 Objective General appearance: alert, cooperative, no distress, appears stated age Head: Normocephalic, without obvious abnormality, atraumatic Eyes: conjunctivae/corneas clear. PERRL, EOM's intact. Fundi benign Throat: Lips, mucosa, and tongue normal. Teeth and gums normal Neck: supple, symmetrical, trachea midline, no adenopathy, thyroid: not enlarged, symmetric, no tenderness/mass/nodules, no carotid bruit and no JVD Lungs: clear to auscultation bilaterally Heart: regular rate and rhythm, S1, S2 normal, no murmur, click, rub or gallop Abdomen: soft, non-tender. Bowel sounds normal. No masses, no organomegaly Extremities: extremities normal, atraumatic, no cyanosis or edema Pulses: 2+ and symmetric Skin: Skin color, texture, turgor normal. No rashes or lesions Neurologic: Left sided weakness Assessment/Plan Assessment/Plan #CVA #Left sided weakness #HTN #lightheadedness #elevated - tele - neuro eval - brain MRI- lacunar stoke - 2d echo - carotid US no sig stenosis - cardiology eval - asa 81 - lipitror 80 - monitor BP - monitor Darryl King M.D. Feb 26, 2020 11:21
[2020-02-26 12:00] VITALS: BP 123/64
--- NOTE | 2020-02-26 12:09 | Neurology Progress Note ---
Interim History Interim History ROS Limited/Unobtainable: No Events: No events. Objective Physical Exam Last Vital Signs Date Time Temp Pulse Resp B/P (MAP) Pulse Ox O2 Delivery O2 Flow Rate FiO2 02/26/20 09:00 Room Air 02/26/20 08:51 95 127/71 02/26/20 08:00 99.3 18 97 Laboratory Tests Test 02/26/20 11:48 White Blood Count Pending Red Blood Count Pending Hemoglobin Pending Hematocrit Pending Mean Corpuscular Volume Pending Mean Corpuscular Hemoglobin Pending Mean Corpuscular Hemoglobin Concent Pending Red Cell Distribution Width Pending Platelet Count Pending Mean Platelet Volume Pending Neutrophils (%) (Auto) Pending Lymphocytes (%) (Auto) Pending Monocytes (%) (Auto) Pending Eosinophils (%) (Auto) Pending Basophils (%) (Auto) Pending Sodium Level Pending Potassium Level Pending Chloride Level Pending Carbon Dioxide Level Pending Blood Urea Nitrogen Pending Creatinine Pending Estimat Glomerular Filtration Rate Pending Glucose Level Pending Calcium Level Pending Phosphorus Level Pending Magnesium Level Pending Neurologic Exam Mental Status: awake, alert Speech: normal speech Language: normal language Cranial Nerve II: fundus normal Cranial Nerves III, IV, : PERRLA Cranial Nerve V: normal facial sensations Objective Neuro Exam: Physical Exam: VS reviewed General: Patient is seated in bed no acute distress Neuro: Awake and Alert Oriented x4, has insight to situation Comprehension intact.Language parameters intact. Cranial nerves II-XII are tested No Neglect Pupils are round equal and reactive. Tongue is midline. Motor: No involuntary movements. Left upper extremity strength is equal 2/5, Right UE 5/5, LLE 4/5, RLE 5/5. Left hemiparesis Sensation intact to light and touch.Left facial droop mild Coordination and gait not tested at this time Impression/Recommendations Diagnostic Impression Assessment and Rec's: 1. 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 NO HEMORRHAGE, MASS EFFECT OR SHIFT. --> ST evaluation complete on mechanical soft diet d/w RN to change diet according to ST rec's --> CT Head and Neck unremarkable, Repeat MRI Brain revealed extension of stroke. 2. Syncope --> no further episodes. --> BP goal < 160/95 --> 2D Echo reviewed Normal LVEF 60% --> carotid us no significant stenosis --> continue asa 81mg po daily --> continue statin lipitor 80mg po daily 3. Arthritis Left Wrist 4. Weakness --> continue PT/OT, will benefit for ARU 4. Underlying HTN --> cont BP meds Recommendations No further recommendation from Neuro persecptive Keep BP higher than normal Hold BP meds and start BP meds from 1 week of onset of stroke. Continue Statin and ASA and ARU candidate. Sandra Cazares SENIOR UI DEVELOPER Feb 26, 2020 12:09
[2020-02-26 12:25] LABS: BASOPHILS % (AUTO) 1.5 % (0.0-2.0); HEMATOCRIT 39.7 % (37.0-47.0); HEMOGLOBIN 12.8 G/DL (12.0-16.0); MEAN CORPUSCULAR VOLUME 97 FL (80-99); MONOCYTES % (AUTO) 12.3 % (1.0-10.0); NEUTROPHILS % (AUTO) 62.1 % (45.0-75.0); PLATELET COUNT 316 K/UL (150-450); RED BLOOD COUNT 4.09 M/UL (4.20-5.40); RED CELL DISTRIBUTION WIDTH 12.9 % (11.6-14.8); WHITE BLOOD COUNT 4.9 K/UL (4.8-10.8)
[2020-02-26 12:30] LABS: CREATININE 1.4 MG/DL (0.55-1.30); PHOSPHORUS 3.4 MG/DL (2.5-4.9); POTASSIUM 4.1 MMOL/L (3.5-5.1)
--- NOTE | 2020-02-26 12:30 | NUR ---
NURSE NOTES: Received report from Tasha RN. Patient is awake and oriented, in no distress, fall precautions maintained. Side rails upx3, bed low and locked, call light within reach.
--- NOTE | 2020-02-26 12:30 | NUR ---
HAND-OFF: Report given to LINDA DOVE.
--- NOTE | 2020-02-26 13:13 | Internal Med Progress Note ---
Subjective Physician Name Darryl Claudio Attending Physician Darryl Claudio M.D. Current Medications Medications (Trade) Dose Ordered Sig/Yenny Route PRN Reason Start Time Stop Time Status Last Admin Dose Admin Acetaminophen (Tylenol) 650 mg Q6H PRN ORAL pain 1-3 02/18/20 01:15 03/19/20 01:14 Acetaminophen (Tylenol) 650 mg Q6H PRN ORAL temp of 100.5 or greater 02/18/20 01:15 03/19/20 01:14 Acetaminophen/ Hydrocodone Bitart ([place] 5/325) 1 tab Q6H PRN ORAL pain 7-10 02/25/20 11:00 03/03/20 10:59 02/26/20 11:21 Amlodipine Besylate (Norvasc) 10 mg DAILY ORAL 02/22/20 09:00 03/20/20 08:59 02/26/20 08:50 Aspirin (ASA) 81 mg DAILY ORAL 02/18/20 09:00 04/03/20 08:59 02/26/20 08:49 Atorvastatin Calcium (Lipitor) 80 mg BEDTIME ORAL 02/18/20 21:00 05/18/20 20:59 02/25/20 20:45 Bupropion HCl (Wellbutrin) 300 mg DAILY ORAL 02/18/20 09:00 03/19/20 08:59 02/26/20 08:51 Docusate Sodium (Colace) 100 mg TWICE A DAY ORAL 02/23/20 18:00 03/24/20 17:59 02/26/20 08:49 Gabapentin (Neurontin) 300 mg BID ORAL 02/25/20 12:30 03/26/20 12:29 02/26/20 08:50 Indomethacin (Indocin) 25 mg DAILYPRN PRN ORAL moderate pain 02/18/20 13:45 03/19/20 01:44 02/25/20 05:00 Magnesium Hydroxide (Mom) 30 ml DAILYPRN PRN ORAL Constipation 02/21/20 17:45 03/22/20 17:44 02/21/20 18:31 Meclizine HCl (Antivert) 25 mg THREE TIMES A DAY ORAL 02/18/20 09:00 03/19/20 08:59 02/26/20 08:50 Metoprolol Succinate (Toprol XL) 25 mg DAILY ORAL 02/21/20 09:00 05/21/20 08:59 02/26/20 08:51 Ondansetron HCl (Zofran) 4 mg Q4H PRN IVP Nausea & Vomiting 02/18/20 20:00 03/19/20 19:59 02/22/20 04:55 Patient Own Medication (Patient's Own Med) 1 ea BIDPRN PRN RECTAL hemorrhoid inflammation 02/23/20 18:08 03/24/20 18:07 02/25/20 06:25 Polyethylene Glycol (Miralax) 17 gm DAILYPRN PRN ORAL Constipation 02/23/20 13:30 03/24/20 13:29 Quetiapine Fumarate (SEROqueL) 150 mg BEDTIME ORAL 02/18/20 21:00 04/03/20 20:59 02/22/20 20:54 Tramadol HCl (Ultram) 50 mg Q6H PRN ORAL Moderate Pain (Pain Scale 4-6) 02/25/20 11:00 03/03/20 10:59 Allergies: Coded Allergies: No Known Allergies (Unverified , 06/26/15) ROS Limited/Unobtainable: No Constitutional: Reports: weakness HEENT: Denies: no symptoms, eye pain, blurred vision, tearing, double vision, ear pain, ear discharge, nose pain, nose congestion, throat pain, throat swelling, mouth pain, mouth swelling, other Cardiovascular: Denies: no symptoms, chest pain, edema, irregular heart rate, lightheadedness, palpitations, syncope, other Respiratory: Denies: no symptoms, cough, orthopnea, shortness of breath, SOB with excertion, SOB at rest, sputum, stridor, wheezing, other Gastrointestinal/Abdominal: Denies: no symptoms, abdomen distended, abdominal pain, black stools, tarry stools, blood in stool, constipated, diarrhea, difficulty swallowing, nausea, poor appetite, poor fluid intake, rectal bleeding, vomiting, other Genitourinary: Denies: no symptoms, burning, discharge, frequency, flank pain, hematuria, incontinence, pain, urgency, other Subjective left sided weakness fluctuating brain MRI repeated Impression: Previously demonstrated area of diffusion restriction in the right austin radiata has increased slightly in size. As this appeared to be hyperacute previously, suspect that this represents interval evolution to subacute stage. However, given the larger size the possibility of interim extension of the infarct should also be considered. No new infarct. No acute intracranial bleed or mass effect. BP better controlled cr 1.4 Objective Last Vital Signs Date Time Temp Pulse Resp B/P (MAP) Pulse Ox O2 Delivery O2 Flow Rate FiO2 02/26/20 12:00 98.7 81 18 123/64 (83) 94 02/26/20 09:00 Room Air Laboratory Tests Test 02/26/20 11:48 White Blood Count 4.9 K/UL (4.8-10.8) Red Blood Count 4.09 M/UL (4.20-5.40) L Hemoglobin 12.8 G/DL (12.0-16.0) Hematocrit 39.7 % (37.0-47.0) Mean Corpuscular Volume 97 FL (80-99) Mean Corpuscular Hemoglobin 31.3 PG (27.0-31.0) H Mean Corpuscular Hemoglobin Concent 32.2 G/DL (32.0-36.0) Red Cell Distribution Width 12.9 % (11.6-14.8) Platelet Count 316 K/UL (150-450) Mean Platelet Volume 6.7 FL (6.5-10.1) Neutrophils (%) (Auto) 62.1 % (45.0-75.0) Lymphocytes (%) (Auto) 24.0 % (20.0-45.0) Monocytes (%) (Auto) 12.3 % (1.0-10.0) H Eosinophils (%) (Auto) 0.0 % (0.0-3.0) Basophils (%) (Auto) 1.5 % (0.0-2.0) Sodium Level 131 MMOL/L (136-145) L Potassium Level 4.1 MMOL/L (3.5-5.1) Chloride Level 99 MMOL/L (98-107) Carbon Dioxide Level 23 MMOL/L (21-32) Anion Gap 9 mmol/L (5-15) Blood Urea Nitrogen 24 mg/dL (7-18) H Creatinine 1.4 MG/DL (0.55-1.30) H Estimat Glomerular Filtration Rate 44.5 mL/min (>60) Glucose Level 163 MG/DL (74-106) H Calcium Level 9.0 MG/DL (8.5-10.1) Phosphorus Level 3.4 MG/DL (2.5-4.9) Magnesium Level 2.0 MG/DL (1.8-2.4) Intake and Output 02/25/20 02/26/20 19:00 07:00 Intake Total 500 ml 400 ml Output Total 400 ml Balance 500 ml 0 ml Intake Oral 500 ml 400 ml Output Urine Total 400 ml # Voids 3 Objective General appearance: alert, cooperative, no distress, appears stated age Head: Normocephalic, without obvious abnormality, atraumatic Eyes: conjunctivae/corneas clear. PERRL, EOM's intact. Fundi benign Throat: Lips, mucosa, and tongue normal. Teeth and gums normal Neck: supple, symmetrical, trachea midline, no adenopathy, thyroid: not enlarged, symmetric, no tenderness/mass/nodules, no carotid bruit and no JVD Lungs: clear to auscultation bilaterally Heart: regular rate and rhythm, S1, S2 normal, no murmur, click, rub or gallop Abdomen: soft, non-tender. Bowel sounds normal. No masses, no organomegaly Extremities: extremities normal, atraumatic, no cyanosis or edema Pulses: 2+ and symmetric Skin: Skin color, texture, turgor normal. No rashes or lesions Neurologic: Left sided weakness Assessment/Plan Assessment/Plan #CVA #Left sided weakness #HTN #lightheadedness #GERALD - neuro eval - brain MRI- lacunar stoke- now with extension of stroke - 2d echo noted - carotid US no sig stenosis - cardiology eval - asa 81 - lipitror 80 - add amlodipine 10mg daily - monitor BP - monitor Darryl King M.D. Feb 26, 2020 13:13
--- NOTE | 2020-02-26 13:37 | NUR ---
CASE MANAGEMENT:REVIEW SI;ACUTE CVA. SYNCOPE. WEAKNESS. 99.3 95 18 127/71 94% ON RA NA- 131 BUN+ 24 CR+ 1.4 GLU+ 163 IS;GABAPENTIN PO BID NORCO PO Q6 PRN NORVASC PO QD TOPROL PO QD ASA PO QD INDOCIN PO QD MECLIZINE PO TID MED SURG STATUS DCP;FROM HOME PLAN;REFER TO [facility]
[2020-02-26 16:00] VITALS: BP 122/66
--- NOTE | 2020-02-26 16:55 | Surgery Progress Note ---
Surgery Progress Note Subjective Additional Comments no acute events Objective Last 24 Hour Vital Signs Date Time Temp Pulse Resp B/P (MAP) Pulse Ox O2 Delivery O2 Flow Rate FiO2 02/26/20 12:00 98.7 81 18 123/64 (83) 94 02/26/20 11:51 99.3 02/26/20 09:00 Room Air 02/26/20 08:51 95 127/71 02/26/20 08:50 95 127/71 02/26/20 08:00 99.3 95 18 127/71 (89) 97 02/26/20 04:00 98.9 89 18 134/72 (92) 99 02/26/20 00:00 99.1 89 18 123/67 (85) 95 02/25/20 21:00 Room Air 02/25/20 20:00 98.3 95 18 136/64 (88) 97 I&O Intake and Output 02/25/20 02/26/20 19:00 07:00 Intake Total 500 ml 400 ml Output Total 400 ml Balance 500 ml 0 ml Intake Oral 500 ml 400 ml Output Urine Total 400 ml # Voids 3 Cardiovascular: RSR Respiratory: clear Abdomen: soft, non-tender, present bowel sounds Extremities: no tenderness, no cyanosis Laboratory Tests Test 02/26/20 11:48 White Blood Count 4.9 K/UL (4.8-10.8) Red Blood Count 4.09 M/UL (4.20-5.40) L Hemoglobin 12.8 G/DL (12.0-16.0) Hematocrit 39.7 % (37.0-47.0) Mean Corpuscular Volume 97 FL (80-99) Mean Corpuscular Hemoglobin 31.3 PG (27.0-31.0) H Mean Corpuscular Hemoglobin Concent 32.2 G/DL (32.0-36.0) Red Cell Distribution Width 12.9 % (11.6-14.8) Platelet Count 316 K/UL (150-450) Mean Platelet Volume 6.7 FL (6.5-10.1) Neutrophils (%) (Auto) 62.1 % (45.0-75.0) Lymphocytes (%) (Auto) 24.0 % (20.0-45.0) Monocytes (%) (Auto) 12.3 % (1.0-10.0) H Eosinophils (%) (Auto) 0.0 % (0.0-3.0) Basophils (%) (Auto) 1.5 % (0.0-2.0) Sodium Level 131 MMOL/L (136-145) L Potassium Level 4.1 MMOL/L (3.5-5.1) Chloride Level 99 MMOL/L (98-107) Carbon Dioxide Level 23 MMOL/L (21-32) Anion Gap 9 mmol/L (5-15) Blood Urea Nitrogen 24 mg/dL (7-18) H Creatinine 1.4 MG/DL (0.55-1.30) H Estimat Glomerular Filtration Rate 44.5 mL/min (>60) Glucose Level 163 MG/DL (74-106) H Calcium Level 9.0 MG/DL (8.5-10.1) Phosphorus Level 3.4 MG/DL (2.5-4.9) Magnesium Level 2.0 MG/DL (1.8-2.4) Plan Problems: (1) Fall Assessment & Plan: unknown LOC no acute trauma noted no significant hematoma or bruising mass head stable chronic neuro input noted appreciate eval pt/ot cardio input thank you Right: CCA= 100 cm/sec ICA = 63 cm/sec ECA = 79 cm/sec Left: CCA = 87 cm/sec ICA= 69 cm/sec ECA = 71 cm/sec ICA/CCA ratio are 0.6 on the right and 0.8 on the left. Antegrade flow is identified in the vertebral arteries bilaterally. IMPRESSION: NO HEMODYNAMICALLY SIGNIFICANT STENOSIS. (2) Mass of head Assessment & Plan: Brain: Mild generalized brain atrophy. Decreased attenuation within the deep white matter compatible with microangiopathic white matter disease. No hemorrhage. Ventricles: Unremarkable. No ventriculomegaly. Bones/joints: Unremarkable. No acute fracture. Soft tissues: Fatty lesion involving the scalp at the level of the left frontal bone suggestive of a small lipoma. This measures 2.6 x 0.3 cm. Sinuses: Unremarkable as visualized. No acute sinusitis. Mastoid air cells: Unremarkable as visualized. No mastoid effusion. IMPRESSION: Chronic changes as described. No acute intracranial hemorrhage or space-occupying lesion. lipoma benign not suggestive of fall okay for outpatient eval / removal as desired There is an area of restricted effusion in the right [place]in radiata. The area of diffusion restriction measures slightly larger than on the prior exam, measuring 18 mm long axis dimension, previously 15 mm. There is now T2 signal abnormality in the same area which was not evident previously. No new areas of diffusion signal abnormality are demonstrated. No acute hemorrhage or edema. No mass effect nor midline shift. There is mild age-related enlargement of the ventricles and extra-axial CSF spaces. There is considerable periventricular deep white matter high T2 signal, consistent with chronic microvascular ischemic change.. There is evidence of prior bilateral cataract surgery. The vascular flow voids are preserved. There is a left frontal scalp lipoma again demonstrated. Impression: Previously demonstrated area of diffusion restriction in the right austin radiata has increased slightly in size. As this appeared to be hyperacute previously, suspect that this represents interval evolution to subacute stage. However, given the larger size the possibility of interim extension of the infarct should also be considered. (3) Weakness (4) Syncope Assessment & Plan: Diffuse age-related senescent changes noted with ventricular sulcal prominence as well as moderate white matter micro and hepatic changes. There is a small acute infarct in the posterior right austin radiata adjacent to the right lateral ventricle. No evidence of hemorrhage, mass effect or shift. Ventricles and cisterns appear unremarkable. Brainstem and posterior fossa appear unremarkable. The sella and parasellar regions are normal. Normal flow voids identified in the carotid siphons. Sinuses, mastoid air cells and bony calvarium are intact. There is an incidental small scalp lipoma left frontal region. IMPRESSION: SMALL ACUTE WHITE MATTER INFARCT RIGHT POSTERIOR [place] RADIATA. NO HEMORRHAGE, MASS EFFECT OR SHIFT. No further recommendation from Neuro persecptive Keep BP higher than normal Hold BP meds and start BP meds from 1 week of onset of stroke. Continue Statin and ASA and ARU candidate. (5) Arthritis of left wrist Freeman Daily Feb 26, 2020 16:55
--- NOTE | 2020-02-26 19:23 | NUR ---
NURSE HAND-OFF: Important Events on Shift: pain management, PT Patient Status: stable Diet: cardiac Pending Orders: n/a Pending Results/Labs: n/a Pending MD notification: n/a Latest Vital Signs: Temperature 98.3 , Pulse 84 , B/P 122 /66 , Respiratory Rate 18 , O2 SAT 100 Vital Sign Comment: VS stable Latest Hearn Fall Score: 80 Fall Risk: High Risk Safety Measures: Call light Within Reach, Bed Alarm Zone 2, Side Rails Side Rails x3, Bed position Low and Locked. Fall Precautions: Yellow Socks Yellow Gown Report given to Jemal DOVE.
--- NOTE | 2020-02-26 19:45 | NUR ---
NURSE NOTES: Received report from Maris DOVE. Patient is awake, alert, and oriented x4. On room air, breathing is even and unlabored. Complains of left upper thigh muscle pain. Patient asks to have Flexeril back. Will call MD to get PRN order. IV right AC intact and patent with no bleeding noted. Bed low and locked. Call light within reach.
[2020-02-26 20:00] VITALS: BP 128/71
[2020-02-26] MEDS: Atorvastatin 80mg tab ORAL SCH (20:12)
[2020-02-26] MEDS ORDERED: Cyclobenzaprine 10mg Tab ORAL PRN (21:45)
[2020-02-27] VITALS: BP 144/71
[2020-02-27] MEDS: HYDROcodone/Acetamin 5/325 tab ORAL PRN ×4 (01:31→21:18)
[2020-02-27 04:00] VITALS: BP 114/70
--- NOTE | 2020-02-27 07:26 | NUR ---
NURSE HAND-OFF: Important Events on Shift: Pain management Patient Status: Stable Diet: Cardiac Pending Orders: [] Pending Results/Labs:[] Pending MD notification:[] Latest Vital Signs: Temperature 98.4 , Pulse 81 , B/P 114 /70 , Respiratory Rate 18 , O2 SAT 95 , Room Air, O2 Flow Rate . Vital Sign Comment: VS stable Latest Hearn Fall Score: 80 Fall Risk: High Risk Safety Measures: Call light Within Reach, Bed Alarm Zone 2, Side Rails Side Rails x3, Bed position Low and Locked. Fall Precautions: Yellow Socks Yellow Gown Door Sign Report given to Elba DOVE.
--- NOTE | 2020-02-27 07:30 | NUR ---
NURSE NOTES: Patient is in bed asleep. Stable. Breathing is even and unlabored. No visible signs of distress noted at this time. Patient is in bed in locked and lowest position with call light within reach. All safety measures provided. WIll continue to monitor.
[2020-02-27 08:00] VITALS: BP 122/73
[2020-02-27] MEDS: Metoprolol Succinate XL 25mg tab ORAL SCH (08:52)
[2020-02-27] MEDS: Aspirin Baby 81mg ORAL SCH (08:52)
[2020-02-27] MEDS: Docusate 100mg cap ORAL SCH ×2 (08:52→17:32)
[2020-02-27] MEDS: Meclizine 25mg tab ORAL SCH ×3 (08:52→17:32)
--- NOTE | 2020-02-27 11:54 | Surgery Progress Note ---
Surgery Progress Note Subjective Additional Comments hip pain plain films ordered Objective Last 24 Hour Vital Signs Date Time Temp Pulse Resp B/P (MAP) Pulse Ox O2 Delivery O2 Flow Rate FiO2 02/27/20 09:00 Room Air 02/27/20 08:52 87 122/73 02/27/20 08:52 87 122/73 02/27/20 08:00 98.3 87 18 122/73 (89) 95 02/27/20 04:00 98.4 81 18 114/70 (85) 95 02/27/20 00:00 97.7 86 18 144/71 (95) 97 02/26/20 21:00 Room Air 02/26/20 21:00 Room Air 02/26/20 20:00 97.4 72 18 128/71 (90) 95 02/26/20 16:00 98.3 84 18 122/66 (84) 100 02/26/20 12:00 98.7 81 18 123/64 (83) 94 I&O Intake and Output 02/26/20 02/27/20 19:00 07:00 Intake Total 300 ml 480 ml Balance 300 ml 480 ml Intake Oral 300 ml 480 ml # Voids 1 3 # Bowel Movements 3 Cardiovascular: RSR, other Respiratory: decreased breath sounds, other Abdomen: soft, non-tender, present bowel sounds Extremities: no tenderness, no cyanosis, other Plan Problems: (1) Fall Assessment & Plan: unknown LOC no acute trauma noted no significant hematoma or bruising mass head stable chronic neuro input noted appreciate eval pt/ot cardio input thank you Right: CCA= 100 cm/sec ICA = 63 cm/sec ECA = 79 cm/sec Left: CCA = 87 cm/sec ICA= 69 cm/sec ECA = 71 cm/sec ICA/CCA ratio are 0.6 on the right and 0.8 on the left. Antegrade flow is identified in the vertebral arteries bilaterally. IMPRESSION: NO HEMODYNAMICALLY SIGNIFICANT STENOSIS. (2) Mass of head Assessment & Plan: Brain: Mild generalized brain atrophy. Decreased attenuation within the deep white matter compatible with microangiopathic white matter disease. No hemorrhage. Ventricles: Unremarkable. No ventriculomegaly. Bones/joints: Unremarkable. No acute fracture. Soft tissues: Fatty lesion involving the scalp at the level of the left frontal bone suggestive of a small lipoma. This measures 2.6 x 0.3 cm. Sinuses: Unremarkable as visualized. No acute sinusitis. Mastoid air cells: Unremarkable as visualized. No mastoid effusion. IMPRESSION: Chronic changes as described. No acute intracranial hemorrhage or space-occupying lesion. lipoma benign not suggestive of fall okay for outpatient eval / removal as desired There is an area of restricted effusion in the right [place]in radiata. The area of diffusion restriction measures slightly larger than on the prior exam, measuring 18 mm long axis dimension, previously 15 mm. There is now T2 signal abnormality in the same area which was not evident previously. No new areas of diffusion signal abnormality are demonstrated. No acute hemorrhage or edema. No mass effect nor midline shift. There is mild age-related enlargement of the ve ntricles and extra-axial CSF spaces. There is considerable periventricular deep white matter high T2 signal, consistent with chronic microvascular ischemic change.. There is evidence of prior bilateral cataract surgery. The vascular flow voids are preserved. There is a left frontal scalp lipoma again demonstrated. Impression: Previously demonstrated area of diffusion restriction in the right austin radiata has increased slightly in size. As this appeared to be hyperacute previously, suspect that this represents interval evolution to subacute stage. However, given the larger size the possibility of interim extension of the infarct should also be considered. (3) Weakness (4) Syncope Assessment & Plan: Diffuse age-related senescent changes noted with ventricular sulcal prominence as well as moderate white matter micro and hepatic changes. There is a small acute infarct in the posterior right austin radiata adjacent to the right lateral ventricle. No evidence of hemorrhage, mass effect or shift. Ventricles and cisterns appear unremarkable. Brainstem and posterior fossa appear unremarkable. The sella and parasellar regions are normal. Normal flow voids identified in the carotid siphons. Sinuses, mastoid air cells and bony calvarium are intact. There is an incidental small scalp lipoma left frontal region. IMPRESSION: SMALL ACUTE WHITE MATTER INFARCT RIGHT POSTERIOR [place] RADIATA. NO HEMORRHAGE, MASS EFFECT OR SHIFT. No further recommendation from Neuro persecptive Keep BP higher than normal Hold BP meds and start BP meds from 1 week of onset of stroke. Continue Statin and ASA and ARU candidate. (5) Arthritis of left wrist Freeman Daily Feb 27, 2020 11:54
[2020-02-27 12:00] VITALS: BP 111/58
--- NOTE | 2020-02-27 13:27 | Internal Med Progress Note ---
Subjective Physician Name Darryl Claudio Attending Physician Darryl Claudio M.D. Current Medications Medications (Trade) Dose Ordered Sig/Yenny Route PRN Reason Start Time Stop Time Status Last Admin Dose Admin Acetaminophen (Tylenol) 650 mg Q6H PRN ORAL pain 1-3 02/18/20 01:15 03/19/20 01:14 Acetaminophen (Tylenol) 650 mg Q6H PRN ORAL temp of 100.5 or greater 02/18/20 01:15 03/19/20 01:14 Acetaminophen/ Hydrocodone Bitart ([place] 5/325) 1 tab Q6H PRN ORAL pain 7-10 02/25/20 11:00 03/03/20 10:59 02/27/20 08:58 Amlodipine Besylate (Norvasc) 10 mg DAILY ORAL 02/22/20 09:00 03/20/20 08:59 02/27/20 08:52 Aspirin (ASA) 81 mg DAILY ORAL 02/18/20 09:00 04/03/20 08:59 02/27/20 08:52 Atorvastatin Calcium (Lipitor) 80 mg BEDTIME ORAL 02/18/20 21:00 05/18/20 20:59 02/26/20 20:12 Bupropion HCl (Wellbutrin) 300 mg DAILY ORAL 02/18/20 09:00 03/19/20 08:59 02/27/20 08:52 Cyclobenzaprine HCl (Flexeril) 10 mg HSPRN PRN ORAL Muscle Spasm 02/26/20 21:45 03/04/20 21:44 02/26/20 22:17 Docusate Sodium (Colace) 100 mg TWICE A DAY ORAL 02/23/20 18:00 03/24/20 17:59 02/27/20 08:52 Gabapentin (Neurontin) 300 mg BID ORAL 02/25/20 12:30 03/26/20 12:29 02/27/20 08:52 Indomethacin (Indocin) 25 mg DAILYPRN PRN ORAL moderate pain 02/18/20 13:45 03/19/20 01:44 02/25/20 05:00 Magnesium Hydroxide (Mom) 30 ml DAILYPRN PRN ORAL Constipation 02/21/20 17:45 03/22/20 17:44 02/21/20 18:31 Meclizine HCl (Antivert) 25 mg THREE TIMES A DAY ORAL 02/18/20 09:00 03/19/20 08:59 02/27/20 13:14 Metoprolol Succinate (Toprol XL) 25 mg DAILY ORAL 02/21/20 09:00 05/21/20 08:59 02/27/20 08:52 Ondansetron HCl (Zofran) 4 mg Q4H PRN IVP Nausea & Vomiting 02/18/20 20:00 03/19/20 19:59 02/22/20 04:55 Patient Own Medication (Patient's Own Med) 1 ea BIDPRN PRN RECTAL hemorrhoid inflammation 02/23/20 18:08 03/24/20 18:07 02/25/20 06:25 Polyethylene Glycol (Miralax) 17 gm DAILYPRN PRN ORAL Constipation 02/23/20 13:30 03/24/20 13:29 Quetiapine Fumarate (SEROqueL) 150 mg BEDTIME ORAL 02/18/20 21:00 04/03/20 20:59 02/22/20 20:54 Tramadol HCl (Ultram) 50 mg Q6H PRN ORAL Moderate Pain (Pain Scale 4-6) 02/25/20 11:00 03/03/20 10:59 Allergies: Coded Allergies: No Known Allergies (Unverified , 06/26/15) Subjective left sided weakness fluctuating brain MRI repeated Impression: Previously demonstrated area of diffusion restriction in the right [place] radiata has increased slightly in size. As this appeared to be hyperacute previously, suspect that this represents interval evolution to subacute stage. However, given the larger size the possibility of interim extension of the infarct should also be considered. No new infarct. No acute intracranial bleed or mass effect. BP better controlled cr 1.4 ARU referral Objective Last Vital Signs Date Time Temp Pulse Resp B/P (MAP) Pulse Ox O2 Delivery O2 Flow Rate FiO2 02/27/20 12:00 98.0 72 18 111/58 (75) 96 02/27/20 09:00 Room Air Intake and Output 02/26/20 02/27/20 19:00 07:00 Intake Total 300 ml 480 ml Balance 300 ml 480 ml Intake Oral 300 ml 480 ml # Voids 1 3 # Bowel Movements 3 Objective General appearance: alert, cooperative, no distress, appears stated age Head: Normocephalic, without obvious abnormality, atraumatic Eyes: conjunctivae/corneas clear. PERRL, EOM's intact. Fundi benign Throat: Lips, mucosa, and tongue normal. Teeth and gums normal Neck: supple, symmetrical, trachea midline, no adenopathy, thyroid: not enlarged, symmetric, no tenderness/mass/nodules, no carotid bruit and no JVD Lungs: clear to auscultation bilaterally Heart: regular rate and rhythm, S1, S2 normal, no murmur, click, rub or gallop Abdomen: soft, non-tender. Bowel sounds normal. No masses, no organomegaly Extremities: extremities normal, atraumatic, no cyanosis or edema Pulses: 2+ and symmetric Skin: Skin color, texture, turgor normal. No rashes or lesions Neurologic: Left sided weakness Assessment/Plan Assessment/Plan #CVA #Left sided weakness #HTN #lightheadedness #GERADL - neuro eval - brain MRI- lacunar stoke- now with extension of stroke - 2d echo noted - carotid US no sig stenosis - cardiology eval - asa 81 - lipitror 80 - add amlodipine 10mg daily - monitor BP - monitor Darryl King M.D. Feb 27, 2020 13:27
[2020-02-27 15:36] LABS: CALCIUM 9.2 MG/DL (8.5-10.1); CREATININE 1.5 MG/DL (0.55-1.30); PHOSPHORUS 3.7 MG/DL (2.5-4.9); POTASSIUM 4.3 MMOL/L (3.5-5.1)
[2020-02-27 16:00] VITALS: BP 112/59
--- NOTE | 2020-02-27 17:20 | NUR ---
NURSE NOTES: xray taken at bedside.
--- NOTE | 2020-02-27 18:20 | Diagnostic Imaging Report ---
EXAM: XR Left Hip With Pelvis When Performed, 2 or 3 Views CLINICAL HISTORY: PAIN TECHNIQUE: Two or three views of the left hip with pelvis when performed. COMPARISON: No relevant prior studies available. FINDINGS: Bones/joints: Mild symmetric loss of the joint space of the left greater than right hip with small femoral osteophyte formation and subchondral sclerosis and cystic change of the left greater than right acetabulum. There is mild axial migration of the femoral heads. Mild degenerative changes of the pubic symphysis. No acute fracture. No dislocation. Soft tissues: Unremarkable. Other findings: Calcified structures overlying the right pelvis may represent uterine fibroids. IMPRESSION: 1. No acute findings in the left hip. 2. Moderate osteoarthritis of the left hip and mild osteoarthritis of the right hip. 3. Fairly symmetric loss of joint space with axial migration of the left greater than right femoral heads, raises the possibility of a coexistent rheumatoid arthritis.
--- NOTE | 2020-02-27 19:24 | NUR ---
NURSE HAND-OFF: Important Events on Shift:pain management, hip xray Patient Status: stable Diet: cardiac Pending Orders: n/a Pending Results/Labs:n/a Pending MD notification:n/a Latest Vital Signs: Temperature 98.3 , Pulse 74 , B/P 112 /59 , Respiratory Rate 18 , O2 SAT 96 , Room Air, O2 Flow Rate . Vital Sign Comment: n/a Latest Hearn Fall Score: 80 Fall Risk: High Risk Safety Measures: Call light Within Reach, Bed Alarm Zone 2, Side Rails Side Rails x3, Bed position Low and Locked. Fall Precautions: Yellow Socks Yellow Gown Door Sign Report given to Yuliya DOVE.
--- NOTE | 2020-02-27 19:45 | NUR ---
NURSES NOTE: Received report from PETTY Thomason. Rounds completed. Pt in bed, awakens to name easily. No outward s/s of distress noted. Breathing is even and unlabored on RA. Neurological assessment completed - satisfactory. Pt denies pain currently. Visible elevated bump on forehead, pt states not related to recent syncope incident. IV R forearm, hep locked. All medications will be administered. Bed at lowest level, call light within reach. Pt will continue to be monitored.
[2020-02-27 20:00] VITALS: BP 132/70
[2020-02-27] MEDS: Atorvastatin 80mg tab ORAL SCH (20:45)
[2020-02-28 04:00] VITALS: BP 110/63
[2020-02-28 08:00] VITALS: BP 127/72
--- NOTE | 2020-02-28 08:08 | NUR ---
NURSE HAND-OFF: Important Events on Shift:[N/A] Patient Status: [STABLE] Diet: [CARDIAC MECH SOFT] Pending Orders: [N/A] Pending Results/Labs:[N/A] Pending MD notification:[N/A] Latest Vital Signs: Temperature 97.9 , Pulse 77 , B/P 110 /63 , Respiratory Rate 17 , O2 SAT 93 , Room Air, O2 Flow Rate . Vital Sign Comment: [WNL] Latest Hearn Fall Score: 80 Fall Risk: High Risk Safety Measures: Call light Within Reach, Bed Alarm Zone 2, Side Rails Side Rails x3, Bed position Low and Locked. Fall Precautions: Yellow Socks Yellow Gown Door Sign Report given to [PETTY RAI].
--- NOTE | 2020-02-28 08:15 | NUR ---
NURSE NOTES: Received patient from [place],patient is in bed,awake, verbally responsive,not in acute distress noted, patient is left hemiparesis, elevated left arm and leg on pillow, call light and personnel items within reach. Bed is in lowest position and locked. Will continue plan of care
[2020-02-28] MEDS: Aspirin Baby 81mg ORAL SCH (08:37)
[2020-02-28] MEDS: Docusate 100mg cap ORAL SCH ×2 (08:37→18:12)
[2020-02-28] MEDS: Metoprolol Succinate XL 25mg tab ORAL SCH (08:37)
[2020-02-28] MEDS: Meclizine 25mg tab ORAL SCH ×3 (08:37→18:11)
[2020-02-28] MEDS: HYDROCORTISONE 2.5% RECTAL PRN (08:39)
[2020-02-28] MEDS: HYDROcodone/Acetamin 5/325 tab ORAL PRN ×2 (10:02→16:23)
--- NOTE | 2020-02-28 10:02 | NUR ---
NURSE NOTES: Administered pain meds for back and left hip pain that are chronic. No swelling or bruise on left hip.
[2020-02-28 12:00] VITALS: BP 126/76
--- NOTE | 2020-02-28 13:00 | NUR ---
NURSE NOTES: Dr. Claudio made his round and Rn relayed left hip pain that are not new, RN suggested CT and MD agreed.
--- NOTE | 2020-02-28 13:49 | Surgery Progress Note ---
Surgery Progress Note Subjective Additional Comments hip xray noted no n/v labs noted Objective Last 24 Hour Vital Signs Date Time Temp Pulse Resp B/P (MAP) Pulse Ox O2 Delivery O2 Flow Rate FiO2 02/28/20 12:00 98.2 97 17 126/76 (93) 98 02/28/20 09:00 Room Air 02/28/20 08:37 85 127/72 02/28/20 08:37 85 127/72 02/28/20 08:00 97.8 85 17 127/72 (90) 96 02/28/20 04:00 97.9 77 17 110/63 (79) 93 02/27/20 21:48 98.3 02/27/20 21:00 Room Air 02/27/20 20:00 98.3 79 18 132/70 (90) 94 02/27/20 16:00 98.3 74 18 112/59 (76) 96 I&O Intake and Output 02/27/20 02/28/20 19:00 07:00 Intake Total 500 ml 240 ml Output Total 450 ml Balance 500 ml -210 ml Intake Oral 500 ml 240 ml Output Urine Total 450 ml Cardiovascular: RSR Respiratory: decreased breath sounds Abdomen: soft, non-tender, present bowel sounds, non-distended Extremities: no edema, no tenderness, no cyanosis Laboratory Tests Test 02/27/20 15:00 Sodium Level 134 MMOL/L (136-145) L Potassium Level 4.3 MMOL/L (3.5-5.1) Chloride Level 101 MMOL/L (98-107) Carbon Dioxide Level 25 MMOL/L (21-32) Anion Gap 8 mmol/L (5-15) Blood Urea Nitrogen 27 mg/dL (7-18) H Creatinine 1.5 MG/DL (0.55-1.30) H Estimat Glomerular Filtration Rate 41.1 mL/min (>60) Glucose Level 116 MG/DL (74-106) H Calcium Level 9.2 MG/DL (8.5-10.1) Phosphorus Level 3.7 MG/DL (2.5-4.9) Magnesium Level 2.2 MG/DL (1.8-2.4) Plan Problems: (1) Fall Assessment & Plan: unknown LOC no acute trauma noted no significant hematoma or bruising mass head stable chronic neuro input noted appreciate eval pt/ot cardio input thank you Right: CCA= 100 cm/sec ICA = 63 cm/sec ECA = 79 cm/sec Left: CCA = 87 cm/sec ICA= 69 cm/sec ECA = 71 cm/sec ICA/CCA ratio are 0.6 on the right and 0.8 on the left. Antegrade flow is identified in the vertebral arteries bilaterally. IMPRESSION: NO HEMODYNAMICALLY SIGNIFICANT STENOSIS. (2) Mass of head Assessment & Plan: Brain: Mild generalized brain atrophy. Decreased attenua tion within the deep white matter compatible with microangiopathic white matter disease. No hemorrhage. Ventricles: Unremarkable. No ventriculomegaly. Bones/joints: Unremarkable. No acute fracture. Soft tissues: Fatty lesion involving the scalp at the level of the left frontal bone suggestive of a small lipoma. This measures 2.6 x 0.3 cm. Sinuses: Unremarkable as visualized. No acute sinusitis. Mastoid air cells: Unremarkable as visualized. No mastoid effusion. IMPRESSION: Chronic changes as described. No acute intracranial hemorrhage or space-occupying lesion. lipoma benign not suggestive of fall okay for outpatient eval / removal as desired There is an area of restricted effusion in the right austin radiata. The area of diffusion restriction measures slightly larger than on the prior exam, measuring 18 mm long axis dimension, previously 15 mm. There is now T2 signal abnormality in the same area which was not evident previously. No new areas of diffusion signal abnormality are demonstrated. No acute hemorrhage or edema. No mass effect nor midline shift. There is mild age-related enlargement of the ventricles and extra-axial CSF spaces. There is considerable periventricular deep white matter high T2 signal, consistent with chronic microvascular ischemic change.. There is evidence of prior bilateral cataract surgery. The vascular flow voids are preserved. There is a left frontal scalp lipoma again demonstrated. Impression: Previously demonstrated area of diffusion restriction in the right austin radiata has increased slightly in size. As this appeared to be hyperacute previously, suspect that this represents interval evolution to subacute stage. However, given the larger size the possibility of interim extension of the infarct should also be considered. (3) Weakness Assessment & Plan: Bones/joints: Mild symmetric loss of the joint space of the left greater than right hip with small femoral osteophyte formation and subchondral sclerosis and cystic change of the left greater than right acetabulum. There is mild axial migration of the femoral heads. Mild degenerative changes of the pubic symphysis. No acute fracture. No dislocation. Soft tissues: Unremarkable. Other findings: Calcified structures overlying the right pelvis may represent uterine fibroids. IMPRESSION: 1. No acute findings in the left hip. 2. Moderate osteoarthritis of the left hip and mild osteoarthritis of the right hip. 3. Fairly symmetric loss of joint space with axial migration of the left greater than right femoral heads, raises the possibility of a coexistent rheumatoid arthritis. (4) Syncope Assessment & Plan: Diffuse age-related senescent changes noted with ventricular sulcal prominence as well as moderate white matter micro and hepatic changes. There is a small acute infarct in the posterior right austin radiata adjacent to the right lateral ventricle. No evidence of hemorrhage, mass effect or shift. Ventricles and cisterns appear unremarkable. Brainstem and posterior fossa appear unremarkable. The sella and parasellar regions are normal. Normal flow voids identified in the carotid siphons. Sinuses, mastoid air cells and bony calvarium are intact. There is an incidental small scalp lipoma left frontal region. IMPRESSION: SMALL ACUTE WHITE MATTER INFARCT RIGHT POSTERIOR [place] RADIATA. NO HEMORRHAGE, MASS EFFECT OR SHIFT. No further recommendation from Neuro persecptive Keep BP higher than normal Hold BP meds and start BP meds from 1 week of onset of stroke. Continue Statin and ASA and ARU candidate. (5) Arthritis of left wrist Freeman Daily Feb 28, 2020 13:49
--- NOTE | 2020-02-28 14:21 | Internal Med Progress Note ---
Subjective Physician Name Darryl Claudio Attending Physician Darryl Claudio M.D. Current Medications Medications (Trade) Dose Ordered Sig/Yenny Route PRN Reason Start Time Stop Time Status Last Admin Dose Admin Acetaminophen (Tylenol) 650 mg Q6H PRN ORAL pain 1-3 02/18/20 01:15 03/19/20 01:14 Acetaminophen (Tylenol) 650 mg Q6H PRN ORAL temp of 100.5 or greater 02/18/20 01:15 03/19/20 01:14 Acetaminophen/ Hydrocodone Bitart ([place] 5/325) 1 tab Q6H PRN ORAL pain 7-10 02/25/20 11:00 03/03/20 10:59 02/28/20 10:02 Amlodipine Besylate (Norvasc) 10 mg DAILY ORAL 02/22/20 09:00 03/20/20 08:59 02/28/20 08:37 Aspirin (ASA) 81 mg DAILY ORAL 02/18/20 09:00 04/03/20 08:59 02/28/20 08:37 Atorvastatin Calcium (Lipitor) 80 mg BEDTIME ORAL 02/18/20 21:00 05/18/20 20:59 02/27/20 20:45 Bupropion HCl (Wellbutrin) 300 mg DAILY ORAL 02/18/20 09:00 03/19/20 08:59 02/28/20 08:37 Cyclobenzaprine HCl (Flexeril) 10 mg HSPRN PRN ORAL Muscle Spasm 02/26/20 21:45 03/04/20 21:44 02/26/20 22:17 Docusate Sodium (Colace) 100 mg TWICE A DAY ORAL 02/23/20 18:00 03/24/20 17:59 02/28/20 08:37 Gabapentin (Neurontin) 300 mg BID ORAL 02/25/20 12:30 03/26/20 12:29 02/28/20 08:37 Indomethacin (Indocin) 25 mg DAILYPRN PRN ORAL moderate pain 02/18/20 13:45 03/19/20 01:44 02/25/20 05:00 Magnesium Hydroxide (Mom) 30 ml DAILYPRN PRN ORAL Constipation 02/21/20 17:45 03/22/20 17:44 02/21/20 18:31 Meclizine HCl (Antivert) 25 mg THREE TIMES A DAY ORAL 02/18/20 09:00 03/19/20 08:59 02/28/20 12:37 Metoprolol Succinate (Toprol XL) 25 mg DAILY ORAL 02/21/20 09:00 05/21/20 08:59 02/28/20 08:37 Ondansetron HCl (Zofran) 4 mg Q4H PRN IVP Nausea & Vomiting 02/18/20 20:00 03/19/20 19:59 02/28/20 09:02 Patient Own Medication (Patient's Own Med) 1 ea BIDPRN PRN RECTAL hemorrhoid inflammation 02/23/20 18:08 03/24/20 18:07 02/28/20 08:39 Polyethylene Glycol (Miralax) 17 gm DAILYPRN PRN ORAL Constipation 02/23/20 13:30 03/24/20 13:29 Quetiapine Fumarate (SEROqueL) 150 mg BEDTIME ORAL 02/18/20 21:00 04/03/20 20:59 02/27/20 20:45 Tramadol HCl (Ultram) 50 mg Q6H PRN ORAL Moderate Pain (Pain Scale 4-6) 02/25/20 11:00 03/03/20 10:59 Allergies: Coded Allergies: No Known Allergies (Unverified , 06/26/15) ROS Limited/Unobtainable: No Constitutional: Reports: weakness HEENT: Denies: no symptoms, eye pain, blurred vision, tearing, double vision, ear pain, ear discharge, nose pain, nose congestion, throat pain, throat swelling, mouth pain, mouth swelling, other Cardiovascular: Denies: no symptoms, chest pain, edema, irregular heart rate, lightheadedness, palpitations, syncope, other Respiratory: Denies: no symptoms, cough, orthopnea, shortness of breath, SOB with excertion, SOB at rest, sputum, stridor, wheezing, other Gastrointestinal/Abdominal: Denies: no symptoms, abdomen distended, abdominal pain, black stools, tarry stools, blood in stool, constipated, diarrhea, difficulty swallowing, nausea, poor appetite, poor fluid intake, rectal bleeding, vomiting, other Genitourinary: Denies: no symptoms, burning, discharge, frequency, flank pain, hematuria, incontinence, pain, urgency, other Neurologic/Psychiatric: Denies: no symptoms, anxiety, depressed, emotional problems, headache, numbness, paresthesia, pre-existing deficit, seizure, tingling, tremors, weakness, other Subjective left sided weakness fluctuating brain MRI repeated Impression: Previously demonstrated area of diffusion restriction in the right austin radiata has increased slightly in size. As this appeared to be hyperacute previously, suspect that this represents interval evolution to subacute stage. However, given the larger size the possibility of interim extension of the infarct should also be considered. No new infarct. No acute intracranial bleed or mass effect. BP better controlled cr 1.4 ARU referral Objective Last Vital Signs Date Time Temp Pulse Resp B/P (MAP) Pulse Ox O2 Delivery O2 Flow Rate FiO2 02/28/20 12:00 98.2 97 17 126/76 (93) 98 02/28/20 09:00 Room Air Laboratory Tests Test 02/27/20 15:00 Sodium Level 134 MMOL/L (136-145) L Potassium Level 4.3 MMOL/L (3.5-5.1) Chloride Level 101 MMOL/L (98-107) Carbon Dioxide Level 25 MMOL/L (21-32) Anion Gap 8 mmol/L (5-15) Blood Urea Nitrogen 27 mg/dL (7-18) H Creatinine 1.5 MG/DL (0.55-1.30) H Estimat Glomerular Filtration Rate 41.1 mL/min (>60) Glucose Level 116 MG/DL (74-106) H Calcium Level 9.2 MG/DL (8.5-10.1) Phosphorus Level 3.7 MG/DL (2.5-4.9) Magnesium Level 2.2 MG/DL (1.8-2.4) Intake and Output 02/27/20 02/28/20 19:00 07:00 Intake Total 500 ml 240 ml Output Total 450 ml Balance 500 ml -210 ml Intake Oral 500 ml 240 ml Output Urine Total 450 ml Objective General appearance: alert, cooperative, no distress, appears stated age Head: Normocephalic, without obvious abnormality, atraumatic Eyes: conjunctivae/corneas clear. PERRL, EOM's intact. Fundi benign Throat: Lips, mucosa, and tongue normal. Teeth and gums normal Neck: supple, symmetrical, trachea midline, no adenopathy, thyroid: not enlarged, symmetric, no tenderness/mass/nodules, no carotid bruit and no JVD Lungs: clear to auscultation bilaterally Heart: regular rate and rhythm, S1, S2 normal, no murmur, click, rub or gallop Abdomen: soft, non-tender. Bowel sounds normal. No masses, no organomegaly Extremities: extremities normal, atraumatic, no cyanosis or edema Pulses: 2+ and symmetric Skin: Skin color, texture, turgor normal. No rashes or lesions Neurologic: Left sided weakness Assessment/Plan Assessment/Plan #CVA #Left sided weakness #HTN #lightheadedness #GERALD - neuro eval - brain MRI- lacunar stoke- now with extension of stroke - 2d echo noted - carotid US no sig stenosis - cardiology eval - asa 81 - lipitror 80 - add amlodipine 10mg daily - monitor BP - monitor Darryl King M.D. Feb 28, 2020 14:21
[2020-02-28] MEDS ORDERED: D5 1/2NS w/KCL 10meq 1,000 ML IV SCH (15:30)
--- NOTE | 2020-02-28 15:54 | NUR ---
NURSE NOTES: Received phone call from Ele from [facility] waste reduction coordinator. tel) [phone] According to Ele,patient was accepted to [facility] and they need Covid-test result. RN received order from Dr. andrade.Swabbed it correctly and sent the specimen.Faxed requested document to [phone]. awaiting for covid test result.
[2020-02-28 16:00] VITALS: BP 145/91
--- NOTE | 2020-02-28 17:02 | NUR ---
NURSE NOTES: Covid test came back negative and RN spoke to Ele and arranged ambulance for 18:30pm. RN also informed patient's daughter Maren and relayed DCP and she is aware.
--- NOTE | 2020-02-28 17:36 | Neurology Progress Note ---
Interim History Interim History ROS Limited/Unobtainable: No Events: No events. Objective Physical Exam Last Vital Signs Date Time Temp Pulse Resp B/P (MAP) Pulse Ox O2 Delivery O2 Flow Rate FiO2 02/28/20 16:00 98.2 102 17 145/91 (109) 98 02/28/20 09:00 Room Air 35 min Neurologic Exam Mental Status: awake, alert Speech: normal speech Language: normal language Cranial Nerve II: fundus normal Cranial Nerves III, IV, : PERRLA Cranial Nerve V: normal facial sensations Objective nc at ab normal RRR left plegic, unfortunately worsened over the course of admission Impression/Recommendations Problems: (1) Arthritis of left wrist (2) Weakness (3) Syncope Diagnostic Impression Likely subacute ischemic stroke, OOW for TPA left hemiparesis, fluctuating , capsular warning syndrome, now plegic bp < 160/95 asa 81 lipitor 80 pt otaru [facility] rehab candidate - will follow Vamshi Broussard MD Feb 28, 2020 17:36
--- NOTE | 2020-02-28 18:00 | NUR ---
NURSE NOTES: Patient is clean and dry, skin assessment done, skin is intact, no pressure sores or redness on pressure points. All belongings were checked and home meds given to the patient. Upper denture is worn by patient.
[2020-02-28] MEDS ORDERED: ACETAMINOPHEN325 M1 ORAL (18:34)
[2020-02-28] MEDS ORDERED: AMLODIPINE BESYL5 MG ORAL (18:35)
[2020-02-28] MEDS ORDERED: ASPIRIN81 MG ORAL (18:35)
[2020-02-28] MEDS ORDERED: LIPITOR80 MG ORAL (18:36)
[2020-02-28] MEDS ORDERED: DOCUSATE SODIU100 MG ORAL (18:37)
[2020-02-28] MEDS ORDERED: CYCLOBENZAPRINE10 MG ORAL (18:37)
[2020-02-28] MEDS ORDERED: HYDROCODON-ACE1 EA15 ORAL (18:38)
[2020-02-28] MEDS ORDERED: GABAPENTIN400 MG ORAL (18:38)
[2020-02-28] MEDS ORDERED: INDOMETHACIN25 MG PO (18:39)
[2020-02-28] MEDS ORDERED: MILK OF MA400 MG/51 ORAL (18:40)
[2020-02-28] MEDS ORDERED: ZOFRAN 4 MG4 MG/2 ML IV (18:41)
[2020-02-28] MEDS ORDERED: METOPROLOL SUCC25 MG ORAL (18:41)
[2020-02-28] MEDS ORDERED: MIRALAX17 G2 ORAL (18:42)
[2020-02-28] MEDS ORDERED: SEROQUEL100 MG ORAL (18:43)
--- NOTE | 2020-02-28 19:03 | NUR ---
NURSE NOTES: Discharged patient to [facility] 7th floor accompanied by two ambulance personnels in stable condition. v.S stable. Patient denied pain or discomfort, no SOB. Alert and oriented x4.All her belongings were checked and sent them to ambulance personnels and upper denture was worn by patient. Skin assessment done, no pressure sore or redness on pressure points, IV was removed, no s/s of infection. Patient's daughter was informed of discharge.
--- NOTE | 2020-02-29 09:06 | NUR ---
*-*DISCHARGE PLANNING*-* PATENT HAS BEEN ACCEPTED TO [facility], AND WAS DISCHARGED ON Saturday02/28/20. Addendum: 02/29/20 at 0923 by OWEN CORNEJO CM *-*DISCHARGE PLANNED*-* PATIENT HAS BEEN ACCEPTED AND DISCHARGED TO: [facility] P:[phone], WHO STATED ON 02/27/20 @ 1:30PM , WILL CALL BACK TO GIVE ROOM# WHEN PATIENT IS ACCEPTED.
--- NOTE | 2020-02-29 14:47 | Discharge Summary ---
Discharge Summary Discharge Summary _ Date of admission: 02/17/2020 Date of discharge: 02/28/[address] Claudio History of Present Illness and Brief Hospital Course Ms. Teran is a 74-year-old female with history of hypertension and loss of balance for many years, who presented to the ED for evaluation of syncope. She reported that she normally uses cane to ambulate. She did not recall what the last MRI 4 years ago indicated. Patient reported that she was sitting on a curb and got up and felt dizzy. She then fell on the floor but did not hit her head. She also reported to have more weakness in the left arm since feeling dizzy earlier that day. She was evaluated by EMS at the scene and was taken home because everything was within normal limits. However patient came back to the ED hours later as her loss of balance was getting worse. Patient complained of hip pain. Given her history of mechanical fall, she was evaluated with hip x-ray. There was no acute findings in the left hip. Moderate osteoarthritis of the left hip and mild osteoarthritis of the right hip were identified. Chest x-ray revealed no acute disease. CT head without IV contrast revealed no acute intracranial hemorrhage or space-occupying lesion. CT angiogram of the brain was normal for her age. Head and neck CT revealed mild atherosclerotic disease without evidence of stenosis or occlusion or dissection. Patient was given aspirin in the ER and was admitted to the hospital for further work-up. Brain MRI revealed small acute white matter infarct right posterior austin radiata without hemorrhage mass-effect or shift. She was started on antiplatelet therapy. Carotid ultrasound revealed no significant stenosis. A repeat brain MRI on 02/23/2020 revealed extension of stroke. At this point, her blood pressure was kept higher than normal. Her antihypertensives were held. Her antihypertensives were restarted 1 week after the onset of stroke. Patient was evaluated by physical therapist. Patient required moderate to maximum assistance for bed mobility tasks in minimal assistance to maintain sitting at the edge of bed. Patient was unable to stand at the time. Patient was recommended to be discharged to ARU/SNF for continued rehab. On the day of discharge, she was alert and oriented x4 and was medically stable for discharge. [facility]. Consultants: Cardiology Dr. Morley Neurology Dr. Broussard Surgery Dr. Daily Discharge Condition Improved and stable Discharge Activity Requires assistance Final diagnoses Acute/subacute CVAs with left hemiparesis and dysarthria Hypertensive urgency Hypertension Hyperlipidemia GERALD Arthritis of left wrist Syncope I have been assigned to dictate discharge summary for this account. I was not involved in the patient's management Fred Bui Feb 29, 2020 14:47
== END 2020-02-28 19:03 | disposition short-term general hospital (02) | DRG 65 ==
LOC: EMR 18:50 → 2E 21:43 → EDBEDREQ 22:41 → 3E 02-24 12:01
DX: I63.81 Other cerebral infarction due to occlusion or stenosis of small artery (principal); G81.94 Hemiplegia, unspecified affecting left nondominant side; N17.9 Acute kidney failure, unspecified; R47.1 Dysarthria and anarthria; R55 Syncope and collapse; R22.0 Localized swelling, mass and lump, head; M16.0 Bilateral primary osteoarthritis of hip; I16.0 Hypertensive urgency; E78.5 Hyperlipidemia, unspecified; M19.032 Primary osteoarthritis, left wrist; D17.0 Benign lipomatous neoplasm of skin and subcutaneous tissue of head, face and neck; I11.9 Hypertensive heart disease without heart failure; Z91.81 History of falling
CPT/HCPCS: 36415; 70450; 70496; 70498; 70551; 71045; 73502; 80048; 80053; 80307; 81003; 82550; 83735; 83880; 84100; 84484; 85025; 93005; 93306; 93880; 96360; 99285; G0480; J2405; U0002